=== PATIENT | female | born 1960 | race Caucasian/White ===

== ENCOUNTER 2017-12-06 12:31 | Inpatient (IN) ==
[2017-12-06] MEDS ORDERED: Isovue-370 500 ML INFUS..BTL IV ONE (12:42)
[2017-12-06] MEDS ORDERED: Ipratropium/Albuterol Neb 3 ML IH ONE (12:48)
[2017-12-06 12:56] LABS: Basophils % 0.1 %; Eosinophils % 0.3 %; Hematocrit 33.7 % (35.3-44.9); Hemoglobin 10.6 g/dL (11.5-15.4); Immature Granulocytes % 1.1 % (0-4); Lymphocytes # 0.4 K/mcL (0.6-4.6); Mean Corpuscular HGB Conc 31.5 g/dL (31.6-35.5); Mean Corpuscular Hemoglobin 28.7 pg (28.0-33.3); Mean Corpuscular Volume 91.3 fL (83.0-100.0); Mean Platelet Volume 12.1 fL (9.4-12.4); Monocytes # 0.4 K/mcL (0.0-1.3); Monocytes % 3.6 %; Neutrophils # 10.1 K/mcL (1.6-8.9); Nucleated Red Blood Cells 0.4 /100 WBC (0); Platelet Count 126 K/mcL (140-400); Red Blood Count 3.69 M/mcL (3.82-4.97); Red Cell Distribution Width 17.4 % (11.5-14.5); Segmented Neutrophils % 90.9 %
--- NOTE | 2017-12-06 13:13 | Emergency Department Note ---
Disposition Clinical Impression: COPD exacerbation Dyspnea Qualifiers: Dyspnea type: unspecified Qualified Code(s): R06.00 - Dyspnea, unspecified Anemia Qualifiers: Anemia type: unspecified type Qualified Code(s): D64.9 - Anemia, unspecified Disposition: Admitted As Inpatient Condition: Good Time of Disposition: 15:41 General Adult HPI - General Chief complaint: ED Shortness of Breath/Dyspnea Stated complaint: DAISY Time Seen by Provider: 12/06/17 12:37 Source: patient Mode of arrival: ambulatory Limitations: no limitations Nursing Notes Reviewed: Yes Vital Signs Reviewed: Yes - History of Present Illness HPI Narrative: Patient is a 57-year-old female that presents the emergency department with shortness of breath. Patient states that this is been ongoing for the past couple weeks. Patient states that she has a history of COPD. Patient states that she was recently diagnosed with bronchitis and has been using inhalers and ambulatory treatment provides temporary relief but the symptoms are worse when she gets up and ambulates. Patient states that she also has a history of stage IV breast cancer and had a radiation treatment earlier today. Patient denies any chest pain at this time. Pain Scale: 8 - Related Data Home Medications Medication Instructions Recorded Confirmed Docosahexanoic Acid/Epa [Fish Oil 1 cap PO BID 03/01/15 12/06/17 Concentrate Softgel] Loperamide [Imodium] 2 mg PO TID PRN 09/21/16 12/06/17 PredniSONE [Sonido] See Taper PO AD 11/29/17 12/06/17 Aspirin [Lo-Dose Aspirin EC] 81 mg PO DAILY 12/06/17 12/06/17 BuPROPion SR (12 HR) [Wellbutrin 200 mg PO DAILY 12/06/17 12/06/17 SR] Cholecalciferol (Vitamin D3) 1,000 unit PO DAILY 12/06/17 12/06/17 [Vitamin D] Cyanocobalamin (B-12) [Vitamin B12] 1,000 mcg PO DAILY 12/06/17 12/06/17 FLUoxetine HCl [Fluoxetine HCl] 40 mg PO DAILY 12/06/17 12/06/17 FLUoxetine HCl [PROzac] 20 mg PO DAILY 12/06/17 12/06/17 Gabapentin [Neurontin] 300 mg PO BID 12/06/17 12/06/17 Hydromorphone HCl [Dilaudid] 4 mg PO Q4H PRN 12/06/17 12/06/17 Loratadine [Claritin] 10 mg PO DAILY 12/06/17 12/06/17 Lovastatin 40 mg PO DAILY 12/06/17 12/06/17 Nystatin [Nystatin Suspension] 15 ml PO TID 12/06/17 12/06/17 Previous Rx's Medication Instructions Recorded Vitamin E (Dl,Tocopheryl Acet) 400 unit PO BID #60 cap 04/15/15 [Vitamin E] Prochlorperazine Maleate 10 mg PO Q6H PRN #30 tablet 08/30/15 [Compazine] ALPRAZolam [Xanax 1 MG Tablet] 1 tab PO BID PRN #60 tablet 06/14/16 Omeprazole [PriLOSEC] 20 mg PO BIDAC #60 cap 09/21/16 Temazepam [Restoril] 30 mg PO HS #30 cap 12/10/16 Folic Acid 1 mg PO DAILY #30 tablet 09/16/17 Everolimus [Afinitor] 10 mg PO DAILY #30 tablet 09/27/17 Exemestane [Aromasin] 25 mg PO DAILY #90 tablet 09/27/17 Albuterol Sulfate [Albuterol 1 - 2 puff IH Q4-6H PRN #1 inhaler 10/22/17 Inhaler] PredniSONE [Deltasone] 20 mg PO DAILY #30 tablet 11/08/17 Propranolol [Inderal] 20 mg PO DAILY #30 tablet 11/26/17 FentaNYL PATCH [Duragesic] 1 patch TD Q72H 30 Days #10 11/29/17 patch.[id number] Allergies Allergy/AdvReac Type Severity Reaction Status Date / Time arthritis medication Allergy Rash Uncoded 12/06/17 13:56 All systems ED: reviewed and negative except as stated. Cardiovascular: Denies: chest pain Respiratory: Reports: dyspnea Past Medical History - Past Medical History Medical history: Reports: arthritis, cancer, fibromyalgia, GERD, hyperlipidemia , other Surgical history: Reports: LILINAE/BSO, other Psychiatric history: Reports: no psych history CARROTER history: Reports: no CARROTER history - Social History Smoking Status: Current every day smoker Smokeless Tobacco Status: No Alcohol use: Reports: none Drug use: Reports: none Physical Exam - General Limitations: no limitations General appearance: alert, in no apparent distress - Head Head exam: atraumatic, normocephalic - Eye Eye exam: Present: normal appearance, EOMI - Neck Neck exam: Present: normal inspection, full ROM, trachea midline - Respiratory Respiratory exam: Present: wheezes (Wheezing bilaterally) - Cardiovascular Cardiovascular exam: Present: regular rate, normal rhythm, normal heart sounds, +S1, +S2 - Abdominal Exam Abdominal exam: Present: soft, Non-Tender, normal bowel sounds - Neurological Exam Neurological exam: Present: alert, oriented X3 - Psychiatric Psychiatric exam: Present: normal affect, normal mood - Skin Skin exam: Present: warm, dry, intact Course Vital Signs Temperature 97.9 F 12/06/17 12:33 Pulse Rate 65 12/06/17 12:33 Respiratory Rate 18 12/06/17 12:33 Blood Pressure 159/86 12/06/17 12:33 O2 Sat by Pulse Oximetry 98 12/06/17 12:33 Temperature 97.9 F 12/06/17 12:44 Pulse Rate 58 12/06/17 14:58 Respiratory Rate 18 12/06/17 14:58 Blood Pressure 151/64 12/06/17 14:58 O2 Sat by Pulse Oximetry 97 12/06/17 14:58 Oxygen Delivery Oxygen Delivery Room Air Medical Decision Making - MDM Narrative Medical decision making narrative: Due the patient presented with shortness of breath we will obtain basic laboratory testing as well as a VQ scan and a chest x-ray. The VQ scan showed low probability for pulmonary embolus. Patient's EKG showed a sinus rhythm at a rate of 62 bpm. Patient had an elevated lactic acid of 2.7. Patient has decreased kidney function consistent with stage III chronic kidney disease this appears to be chronic for the patient at her baseline. Troponin is negative. Patient's BNP is 518. Patient will be given DuoNeb breathing treatments and steroids here in the emergency department. Patient will also be started on Zosyn for antibiotic coverage due to having an elevated lactic acid 2.7. Patient was not started on Levaquin due to the patient having stage III kidney disease. I spoke with the admitting hospitalist Dr. Brennan and she has accepted the patient to their service. Patients repeat lactic acid was 2.0. The patient be admitted to the hospital for further evaluation and management this time. - Medical Records Medical records reviewed: Yes I reviewed the patient's medical records. - Lab Data Lab results reviewed: Yes I reviewed the patient's lab results. Result diagrams: 12/06/17 12:44 12/06/17 12:44 Lab Results 12/06/17 12/06/17 12/06/17 Range/Units 12:44 12:44 12:44 WBC 11.1 (4.3-11.1) K/mcL RBC 3.69 L (3.82-4.97) M/mcL Hgb 10.6 L (11.5-15.4) g/dL Hct 33.7 L (35.3-44.9) % MCV 91.3 (83.0-100.0) fL MCH 28.7 (28.0-33.3) pg MCHC 31.5 L (31.6-35.5) g/dL RDW 17.4 H (11.5-14.5) % Plt Count 126 L (140-400) K/mcL MPV 12.1 (9.4-12.4) fL Immature Gran % 1.1 (0-4) % Seg Neutrophils % 90.9 % Lymphocytes % 4.0 % Monocytes % 3.6 % Eosinophils % 0.3 % Basophils % 0.1 % Neutrophils # 10.1 H (1.6-8.9) K/mcL Lymphocytes # 0.4 L (0.6-4.6) K/mcL Monocytes # 0.4 (0.0-1.3) K/mcL Eosinophils # 0.0 (0.0-0.6) K/mcL Basophils # 0.0 (0.0-0.2) K/mcL Nucleated RBCs/100 WBC 0.4 H (0) /100 WBC Sodium 134 L (136-145) mEq/L Potassium 4.0 (3.5-5.1) mEq/L Chloride 94 L (98-107) mEq/L Carbon Dioxide 29 (23-29) mEq/L BUN 21 H (6-20) mg/dL Creatinine 1.48 H (0.60-1.20) mg/dL Est GFR ( Amer) 44 L (> 60) Est GFR (Non-Af Amer) 36 L (> 60) BUN/Creatinine Ratio 14 (6-26) Glucose 227 H (70-105) mg/dL Calculated Osmolality 288 (280-300) Lactic Acid 2.7 H (0.5-2.2) mmol/L Calcium 9.7 (8.6-10.3) mg/dL Troponin I < 0.03 (< 0.04) ng/mL B-Natriuretic Peptide (Less than 100) pg/mL 12/06/17 12/06/17 Range/Units 12:44 14:49 WBC (4.3-11.1) K/mcL RBC (3.82-4.97) M/mcL Hgb (11.5-15.4) g/dL Hct (35.3-44.9) % MCV (83.0-100.0) fL MCH (28.0-33.3) pg MCHC (31.6-35.5) g/dL RDW (11.5-14.5) % Plt Count (140-400) K/mcL MPV (9.4-12.4) fL Immature Gran % (0-4) % Seg Neutrophils % % Lymphocytes % % Monocytes % % Eosinophils % % Basophils % % Neutrophils # (1.6-8.9) K/mcL Lymphocytes # (0.6-4.6) K/mcL Monocytes # (0.0-1.3) K/mcL Eosinophils # (0.0-0.6) K/mcL Basophils # (0.0-0.2) K/mcL Nucleated RBCs/100 WBC (0) /100 WBC Sodium (136-145) mEq/L Potassium (3.5-5.1) mEq/L Chloride (98-107) mEq/L Carbon Dioxide (23-29) mEq/L BUN (6-20) mg/dL Creatinine (0.60-1.20) mg/dL Est GFR ( Amer) (> 60) Est GFR (Non-Af Amer) (> 60) BUN/Creatinine Ratio (6-26) Glucose (70-105) mg/dL Calculated Osmolality (280-300) Lactic Acid 2.0 (0.5-2.2) mmol/L Calcium (8.6-10.3) mg/dL Troponin I (< 0.04) ng/mL B-Natriuretic Peptide 518 H (Less than 100) pg/mL - Radiology Data Radiology results reviewed: Yes I reviewed the patient's radiology results. Pulmonary Perfusion Imaging 12/06/17 13:52 IMPRESSION: Low probability for pulmonary embolus. D/ / Snehla Baca MD / Snehal Baca MD Interpreting Provider: Snehal Baca MD Chest X-Ray 12/06/17 14:08 IMPRESSION: No acute abnormality. D/ / 12/06/2017 15:20:51 [facility] Interpreting Provider: Jose Brunner MD - EKG Data EKG #1 EKG attestation: Yes I reviewed and interpreted this EKG. EKG results narrative: EKG shows sinus rhythm at a rate of 62 bpm, NC interval 150, QTC 420, QRS duration 85 with a normal axis. There is no evidence of STEMI on EKG. This is compared to previous EKG on 07/08/17 which showed a sinus bradycardia at a rate of 55 bpm
[2017-12-06 13:27] LABS: BUN/Creatinine Ratio 14 (6-26); Blood Urea Nitrogen 21 mg/dL (6-20); Calcium 9.7 mg/dL (8.6-10.3); Carbon Dioxide 29 mEq/L (23-29); Chloride 94 mEq/L (98-107); Glucose 227 mg/dL (70-105); Osmolality,Calculated 288 (280-300); Sodium 134 mEq/L (136-145); Troponin I < 0.03 ng/mL (< 0.04); eGFR For African Americans 44 (> 60); eGFR For Non-African Americans 36 (> 60)
--- NOTE | 2017-12-06 15:01 | Emergency Department Note ---
Disposition Clinical Impression: Dyspnea Qualifiers: Dyspnea type: unspecified Qualified Code(s): R06.00 - Dyspnea, unspecified Disposition: Admitted As Inpatient Forms: ED Satisfaction Letter General Adult HPI - General Chief complaint: ED Shortness of Breath/Dyspnea Stated complaint: DAISY Time Seen by Provider: 12/06/17 12:37 Source: patient Mode of arrival: ambulatory Limitations: no limitations - History of Present Illness Pain Scale: 8 - Related Data Home Medications Medication Instructions Recorded Confirmed Docosahexanoic Acid/Epa [Fish Oil 1 cap PO BID 03/01/15 12/06/17 Concentrate Softgel] Loperamide [Imodium] 2 mg PO TID PRN 09/21/16 12/06/17 PredniSONE [Sonido] See Taper PO AD 11/29/17 12/06/17 Aspirin [Lo-Dose Aspirin EC] 81 mg PO DAILY 12/06/17 12/06/17 BuPROPion SR (12 HR) [Wellbutrin 200 mg PO DAILY 12/06/17 12/06/17 SR] Cholecalciferol (Vitamin D3) 1,000 unit PO DAILY 12/06/17 12/06/17 [Vitamin D] Cyanocobalamin (B-12) [Vitamin B12] 1,000 mcg PO DAILY 12/06/17 12/06/17 FLUoxetine HCl [Fluoxetine HCl] 40 mg PO DAILY 12/06/17 12/06/17 FLUoxetine HCl [PROzac] 20 mg PO DAILY 12/06/17 12/06/17 Gabapentin [Neurontin] 300 mg PO BID 12/06/17 12/06/17 Hydromorphone HCl [Dilaudid] 4 mg PO Q4H PRN 12/06/17 12/06/17 Loratadine [Claritin] 10 mg PO DAILY 12/06/17 12/06/17 Lovastatin 40 mg PO DAILY 12/06/17 12/06/17 Nystatin [Nystatin Suspension] 15 ml PO TID 12/06/17 12/06/17 Previous Rx's Medication Instructions Recorded Vitamin E (Dl,Tocopheryl Acet) 400 unit PO BID #60 cap 04/15/15 [Vitamin E] Prochlorperazine Maleate 10 mg PO Q6H PRN #30 tablet 08/30/15 [Compazine] ALPRAZolam [Xanax 1 MG Tablet] 1 tab PO BID PRN #60 tablet 06/14/16 Omeprazole [PriLOSEC] 20 mg PO BIDAC #60 cap 09/21/16 Temazepam [Restoril] 30 mg PO HS #30 cap 12/10/16 Folic Acid 1 mg PO DAILY #30 tablet 09/16/17 Everolimus [Afinitor] 10 mg PO DAILY #30 tablet 09/27/17 Exemestane [Aromasin] 25 mg PO DAILY #90 tablet 09/27/17 Albuterol Sulfate [Albuterol 1 - 2 puff IH Q4-6H PRN #1 inhaler 10/22/17 Inhaler] PredniSONE [Deltasone] 20 mg PO DAILY #30 tablet 11/08/17 Propranolol [Inderal] 20 mg PO DAILY #30 tablet 11/26/17 FentaNYL PATCH [Duragesic] 1 patch TD Q72H 30 Days #10 11/29/17 patch.[id number] Allergies Allergy/AdvReac Type Severity Reaction Status Date / Time arthritis medication Allergy Rash Uncoded 12/06/17 13:56 Cardiovascular: Denies: chest pain Respiratory: Reports: dyspnea Past Medical History - Past Medical History Medical history: Reports: arthritis, cancer, fibromyalgia, GERD, hyperlipidemia , other Surgical history: Reports: LILIANE/BSO, other Psychiatric history: Reports: no psych history 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 - Social History Smoking Status: Current every day smoker Smokeless Tobacco Status: No Alcohol use: Reports: none Drug use: Reports: none Physical Exam - General Limitations: no limitations General appearance: alert, in no apparent distress Course Vital Signs Temperature 97.9 F 12/06/17 12:33 Pulse Rate 65 12/06/17 12:33 Respiratory Rate 18 12/06/17 12:33 Blood Pressure 159/86 12/06/17 12:33 O2 Sat by Pulse Oximetry 98 12/06/17 12:33 Temperature 97.9 F 12/06/17 12:44 Pulse Rate 56 12/06/17 13:43 Respiratory Rate 18 12/06/17 13:43 Blood Pressure 132/62 12/06/17 13:43 O2 Sat by Pulse Oximetry 96 12/06/17 13:43 Oxygen Delivery Oxygen Delivery Room Air Medical Decision Making - Lab Data Result diagrams: 12/06/17 12:44 12/06/17 12:44 Lab Results 12/06/17 12/06/1718 Range/Units 12:44 12:44 12:44 WBC 11.1 (4.3-11.1) K/mcL RBC 3.69 L (3.82-4.97) M/mcL Hgb 10.6 L (11.5-15.4) g/dL Hct 33.7 L (35.3-44.9) % MCV 91.3 (83.0-100.0) fL MCH 28.7 (28.0-33.3) pg MCHC 31.5 L (31.6-35.5) g/dL RDW 17.4 H (11.5-14.5) % Plt Count 126 L (140-400) K/mcL MPV 12.1 (9.4-12.4) fL Immature Gran % 1.1 (0-4) % Seg Neutrophils % 90.9 % Lymphocytes % 4.0 % Monocytes % 3.6 % Eosinophils % 0.3 % Basophils % 0.1 % Neutrophils # 10.1 H (1.6-8.9) K/mcL Lymphocytes # 0.4 L (0.6-4.6) K/mcL Monocytes # 0.4 (0.0-1.3) K/mcL Eosinophils # 0.0 (0.0-0.6) K/mcL Basophils # 0.0 (0.0-0.2) K/mcL Nucleated RBCs/100 WBC 0.4 H (0) /100 WBC Sodium 134 L (136-145) mEq/L Potassium 4.0 (3.5-5.1) mEq/L Chloride 94 L (98-107) mEq/L Carbon Dioxide 29 (23-29) mEq/L BUN 21 H (6-20) mg/dL Creatinine 1.48 H (0.60-1.20) mg/dL Est GFR ( Amer) 44 L (> 60) Est GFR (Non-Af Amer) 36 L (> 60) BUN/Creatinine Ratio 14 (6-26) Glucose 227 H (70-105) mg/dL Calculated Osmolality 288 (280-300) Lactic Acid 2.7 H (0.5-2.2) mmol/L Calcium 9.7 (8.6-10.3) mg/dL Troponin I < 0.03 (< 0.04) ng/mL B-Natriuretic Peptide (Less than 100) pg/mL 12/06/17 Range/Units 12:44 WBC (4.3-11.1) K/mcL RBC (3.82-4.97) M/mcL Hgb (11.5-15.4) g/dL Hct (35.3-44.9) % MCV (83.0-100.0) fL MCH (28.0-33.3) pg MCHC (31.6-35.5) g/dL RDW (11.5-14.5) % Plt Count (140-400) K/mcL MPV (9.4-12.4) fL Immature Gran % (0-4) % Seg Neutrophils % % Lymphocytes % % Monocytes % % Eosinophils % % Basophils % % Neutrophils # (1.6-8.9) K/mcL Lymphocytes # (0.6-4.6) K/mcL Monocytes # (0.0-1.3) K/mcL Eosinophils # (0.0-0.6) K/mcL Basophils # (0.0-0.2) K/mcL Nucleated RBCs/100 WBC (0) /100 WBC Sodium (136-145) mEq/L Potassium (3.5-5.1) mEq/L Chloride (98-107) mEq/L Carbon Dioxide (23-29) mEq/L BUN (6-20) mg/dL Creatinine (0.60-1.20) mg/dL Est GFR ( Amer) (> 60) Est GFR (Non-Af Amer) (> 60) BUN/Creatinine Ratio (6-26) Glucose (70-105) mg/dL Calculated Osmolality (280-300) Lactic Acid (0.5-2.2) mmol/L Calcium (8.6-10.3) mg/dL Troponin I (< 0.04) ng/mL B-Natriuretic Peptide 518 H (Less than 100) pg/mL Attestation Statement - Attestation Attestation: I examined this patient and my medical decision-making was reviewed with the Resident Physician. I agree with the documented findings, disposition and treatment plan as described except to the extent set forth below. 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 Patient states that she augustin snot have a history of PE but is currently recieving radiation therapy. [place] will recieve a cardiopulmonary worup with CXR, VQ scan, for evlaution and rule out of PE. Differential also inculded pnuemoina because she states that she was dianogsed with bronchitis a week ago that has not improved. WE will likely admit.
[2017-12-06] MEDS ORDERED: Piperacillin/Tazobactam 3.375 GM in 0.9 % Sodium Chloride Mini Bag 100 ML IVPB ONE (15:29)
[2017-12-06] MEDS ORDERED: methylPREDNISolone 125 MG/2 ML VIAL IVP ONE (15:29)
--- NOTE | 2017-12-06 16:44 | Internal Med History&Physical ---
Date of Encounter: 12/07/17 Time of Encounter: 16:44 Internal Medicine - H&P: HPI Chief complaint: SOB History of present illness: Ms. Trejo is a 57 year old female with H/O COPD who the emergency department with 2 weeks history of shortness of breath. She was recently diagnosed with bronchitis and has been using inhalers and on steroids taper with no improvement Patient states that she also has a history of stage IV breast cancer and had a radiation treatment earlier today. VQ scan showed low probability for pulmonary embolus. Patient's EKG showed a sinus rhythm at a rate of 62 bpm. Patient had an elevated lactic acid of 2.7. She was treated with DuoNeb breathing treatments and steroids here in the emergency department. Patient will also be started on Zosyn for antibiotic coverage due to having an elevated lactic acid 2.7 and she was admitted for further evaluation. Past Med Surg Social Fam HX - Past Medical History Medical history: arthritis, cancer, fibromyalgia, GERD, hyperlipidemia, other Additional medical history: stage IV breast cancer (L4,L5,RIGHT HIP, LIVER). stage III renal failure. no deficits from previous strokes Psychiatric history: no psych history - Past Surgical History Surgical History: LILIANE/BSO, other Additional surgical history: exploratory abdominal surgery - Social History Smoking Status: Current every day smoker Smokeless Tobacco Status: No Alcohol use: none Drug use: none - Family History Mother Hx Family Cardiac Disorders: Yes (HLD) Hx Family Endocrine Disorder: Yes (DM) Internal Medicine - H&P: Meds Docosahexanoic Acid/Epa [Fish Oil Concentrate Softgel] 1 cap PO BID 03/01/15 [ History] Vitamin E (Dl,Tocopheryl Acet) [Vitamin E] 400 unit PO BID #60 cap 04/15/15 [Rx] Prochlorperazine Maleate [Compazine] 10 mg PO Q6H PRN #30 tablet 08/30/15 [Rx] ALPRAZolam [Xanax 1 MG Tablet] 1 tab PO BID PRN #60 tablet 06/14/16 [Rx] Loperamide [Imodium] 2 mg PO TID PRN 09/21/16 [History] Omeprazole [PriLOSEC] 20 mg PO BIDAC #60 cap 09/21/16 [Rx] Temazepam [Restoril] 30 mg PO HS #30 cap 12/10/16 [Rx] Folic Acid 1 mg PO DAILY #30 tablet 09/16/17 [Rx] Everolimus [Afinitor] 10 mg PO DAILY #30 tablet 09/27/17 [Rx] Exemestane [Aromasin] 25 mg PO DAILY #90 tablet 09/27/17 [Rx] Albuterol Sulfate [Albuterol Inhaler] 1 - 2 puff IH Q4-6H PRN #1 inhaler [Rx] PredniSONE [Deltasone] 20 mg PO DAILY #30 tablet 11/08/17 [Rx] Propranolol [Inderal] 20 mg PO DAILY #30 tablet 11/26/17 [Rx] FentaNYL PATCH [Duragesic] 1 patch TD Q72H 30 Days #10 patch.td72 11/29/17 [Rx] PredniSONE [Sonido] See Taper PO AD 11/29/17 [History] Aspirin [Lo-Dose Aspirin EC] 81 mg PO DAILY 12/06/17 [History] BuPROPion SR (12 HR) [Wellbutrin SR] 200 mg PO DAILY 12/06/17 [History] Cholecalciferol (Vitamin D3) [Vitamin D] 1,000 unit PO DAILY 12/06/17 [History] Cyanocobalamin (B-12) [Vitamin B12] 1,000 mcg PO DAILY 12/06/17 [History] FLUoxetine HCl [Fluoxetine HCl] 40 mg PO DAILY 12/06/17 [History] FLUoxetine HCl [PROzac] 20 mg PO DAILY 12/06/17 [History] Gabapentin [Neurontin] 300 mg PO BID 12/06/17 [History] Hydromorphone HCl [Dilaudid] 4 mg PO Q4H PRN 12/06/17 [History] Loratadine [Claritin] 10 mg PO DAILY 12/06/17 [History] Lovastatin 40 mg PO DAILY 12/06/17 [History] Nystatin [Nystatin Suspension] 15 ml PO TID 12/06/17 [History] 3 Allergy/AdvReac Type Severity Reaction Status Date / Time arthritis medication Allergy Rash Uncoded 12/06/17 13:56 All Systems PM: A 10-system review of systems was performed and is negative for pertinent findings except as documented above in the HPI. - Constitutional Constitutional: no chills, no fever(s), no night sweats - Cardiovascular Cardiovascular ROS IM: dyspnea, no chest pain, no diaphoresis, no lightheadedness, no palpitations, no syncope - Respiratory Respiratory: dyspnea, no cough, no wheezing, no excessive phlegm production - Gastrointestinal Gastrointestinal: no abdominal pain, no diarrhea, no hematemesis, no hematochezia, no melena, no nausea, no vomiting - Constitutional Vitals: Temp Pulse Resp BP Pulse Ox 97.9 F 58 16 151/64 97 12/06/17 12:44 12/06/17 14:58 12/06/17 15:53 12/06/17 15:53 12/06/17 14:58 General appearance: Present: A&O X 3 - Head Head exam: Present: atraumatic, normocephalic - Neck Neck exam general surgery: Present: supple, trachea midline. Absent: lymphadenopathy - Respiratory Respiratory exam: Present: rhonchi. Absent: accessory muscle use, rales, wheezes - Cardiovascular Cardiovascular exam: Present: RRR, +S1, +S2. Absent: diastolic murmur, gallop, rubs, systolic murmur - GI/Abdominal GI/Abdominal exam: Present: normal bowel sounds, soft, no peritoneal signs. Absent: distended, tenderness - Extremities Exam Extremities exam: Present: warm, radial pulses palpable and symmetrical. Absent : calf tenderness, cyanotic, pedal edema Internal Med - H&P Results - Labs CBC & Chem 7: 12/06/17 12:44 12/06/17 12:44 - Assessment and plan (1) COPD exacerbation Current Visit: Yes Status: Acute Assessment and plan: ASSESSMENT: - SOB due to *COPD exacerbation caused by URTI, allergen exposure, medication nonocompliance *Bronchitis PLAN: - Aerosols q 4 hr and PRN SOB - Solu-medrol 40 mg IV q 6 hr - O2 to keep SpO2 higher than 92% (SpO higher than 95% if CAD) - CBCD, BMP in AM - Sputum Gram stain, C+S - Robitussin 10 cc PO q 4 hr - Tylenol 650 mg PO q 4-6 hr PRN pain/fever - Heparin 5000 U SQ BID - Home meds - check the list and restart - ABs (2) Anemia Current Visit: Yes Status: Acute Qualifiers: Anemia type: unspecified type Qualified Code(s): D64.9 - Anemia, unspecified (3) Breast cancer, left Current Visit: No Status: Chronic Qualifiers: Breast location: unspecified site of breast (4) Chronic kidney disease (CKD) Current Visit: Yes Status: Acute (5) DVT prophylaxis Current Visit: Yes Status: Acute - Time Spent With Patient Total time spent is greater than 50% in coordination of care (as documented) at patient's floor/unit and/or counseling patient:
[2017-12-06] MEDS: *HR* HYDROmorphone 4 MG TABLET PO PRN (20:30)
[2017-12-06] MEDS ORDERED: ALPRAZolam 1 MG TABLET PO PRN (20:36)
[2017-12-06] MEDS ORDERED: *HR* HYDROmorphone 4 MG TABLET PO PRN (20:36)
[2017-12-06] MEDS ORDERED: Naloxone 0.4 MG/ML INJ IVP PRN (20:40)
[2017-12-06] MEDS ORDERED: Acetaminophen 325 MG TABLET PO PRN (20:40)
[2017-12-06] MEDS ORDERED: *HR* HYDROcodone/Acet 5/325 mg TABLET PO PRN (20:40)
[2017-12-06] MEDS ORDERED: *HR* FentaNYL PATCH 25 MCG PATCH TD SCH (20:45)
[2017-12-06] MEDS: Ipratropium/Albuterol Neb 3 ML IH SCH (21:44)
[2017-12-06 21:54] LABS: INR 1.1; Prothrombin Time 11.9 Seconds (9.4-12.1)
[2017-12-06 21:56] LABS: Activated Partial Thrombo Time 28.3 Seconds (26.0-36.0)
[2017-12-06] MEDS: Temazepam 15 MG CAPSULE PO SCH (22:27)
[2017-12-06] MEDS: Gabapentin 300 MG CAPSULE PO SCH (22:27)
[2017-12-06] MEDS: FISH OIL PO SCH (22:27)
[2017-12-06] MEDS: Nystatin SUSP 5 ML UD.LIQ PO SCH (22:28)
[2017-12-07] MEDS: Ipratropium/Albuterol Neb 3 ML IH SCH ×7 (00:31→23:37)
[2017-12-07] MEDS: *HR* HYDROmorphone 4 MG TABLET PO PRN ×3 (03:58→20:39)
[2017-12-07] MEDS: Azithromycin 500 MG in D5% in Water 250 ML IVPB SCH (04:17)
[2017-12-07 04:36] LABS: Bilirubin,Urine Negative (Negative); Blood,Urine Negative (Negative); Clarity,Urine Clear (Clear); Color,Urine Yellow (Yellow); Glucose,Urine (UA) >=1000 mg/dL (Normal); Ketones,Urine Negative (Negative); Leukocyte Esterase,Urine Negative (Negative); Nitrite,Urine Negative (Negative); PH,Urine 6.5 pH Units (5.0-8.0); Protein,Urine Negative (Neg-Trace); Specific Gravity,Urine 1.027 (1.010-1.025); Urobilinogen,Urine Normal (Normal)
[2017-12-07] MEDS: MethylPREDNISolone 40 MG/ML VIAL IVP SCH ×3 (05:25→17:13)
[2017-12-07] MEDS: *HR* Heparin 5,000 UNIT/ML VIAL SQ SCH ×2 (05:25→17:13)
[2017-12-07 06:07] LABS: Basophils % 0.2 %; Hemoglobin 9.5 g/dL (11.5-15.4); Lymphocytes # 0.2 K/mcL (0.6-4.6); Lymphocytes % 4.1 %; Mean Corpuscular HGB Conc 30.6 g/dL (31.6-35.5); Mean Corpuscular Hemoglobin 27.5 pg (28.0-33.3); Mean Corpuscular Volume 89.9 fL (83.0-100.0); Mean Platelet Volume 12.3 fL (9.4-12.4); Monocytes # 0.1 K/mcL (0.0-1.3); Neutrophils # 5.5 K/mcL (1.6-8.9); Nucleated Red Blood Cells 0.5 /100 WBC (0); Platelet Count 107 K/mcL (140-400); Red Blood Count 3.45 M/mcL (3.82-4.97); Red Cell Distribution Width 17.3 % (11.5-14.5); Segmented Neutrophils % 93.7 %
[2017-12-07 06:20] LABS: Albumin 3.3 g/dL (3.5-5.7); Albumin/Globulin Ratio 1.3 (1.1-2.2); Bilirubin,Total 0.4 mg/dL (0.3-1.0); Calcium 8.8 mg/dL (8.6-10.3); Chol/HDL Ratio 3.2 (0-4.9); Globulin 2.6 g/dL (2.4-3.5); Magnesium 2.2 mg/dL (1.6-2.6); Phosphorous 3.9 mg/dL (2.7-4.5); Total Protein 5.9 g/dL (6.4-8.9)
[2017-12-07] MEDS: Aspirin Enteric Coated 81 MG Tablet PO SCH (08:03)
[2017-12-07] MEDS: Nystatin SUSP 5 ML UD.LIQ PO SCH ×4 (08:03→22:37)
[2017-12-07] MEDS: BuPROPion SR (12 HR) 100 MG TABLET PO SCH (08:03)
[2017-12-07] MEDS: Loratadine 10 MG TABLET PO SCH (08:04)
[2017-12-07] MEDS: Folic Acid 1 MG TABLET PO SCH (08:04)
[2017-12-07] MEDS: Gabapentin 300 MG CAPSULE PO SCH ×2 (08:04→20:38)
[2017-12-07] MEDS: Cyanocobalamin (B-12) 1,000 MCG TABLET PO SCH (08:04)
[2017-12-07] MEDS: Cholecalciferol (D-3) 1,000 UNIT TABLET PO SCH (08:04)
[2017-12-07] MEDS: FLUoxetine 20 MG CAPSULE PO SCH (08:04)
[2017-12-07] MEDS: FISH OIL PO SCH ×2 (08:05→20:41)
[2017-12-07] MEDS: EVEROLIMUS 10 MG PO SCH (08:05)
[2017-12-07] MEDS: (Exemestane [Aromasin] 25 MG) PO SCH (08:05)
[2017-12-07] MEDS ORDERED: FLUoxetine 20 MG CAPSULE PO SCH (09:00)
--- NOTE | 2017-12-07 10:06 | Electrocardiograph Report ---
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
--- NOTE | 2017-12-07 18:35 | Internal Med Progress Note ---
Date of Encounter: 12/07/17 Time of Encounter: 13:00 - Assessment and plan (1) COPD exacerbation Current Visit: Yes Status: Acute Assessment and plan: No wheezes noted at this time. Patient states she is feeling much better we will taper Solu-Medrol continue with bronchodilators as well as Robitussin and azithromycin-we will monitor overnight anticipate discharge in a.m. (2) Breast cancer, left Current Visit: No Status: Chronic Assessment and plan: 1 metastatic breast cancer with liver metastasis current treatment Everolimus and Aromasin Continue with prednisone once tapered Cont with outpatient radiation Continue with follow-up treatments with Qualifiers: Breast location: unspecified site of breast Estrogen receptor status: unspecified Patient sex: female Qualified Code(s): C50.912 - Malignant neoplasm of unspecified site of left female breast (3) Anemia Current Visit: Yes Status: Acute Assessment and plan: Currently appears to be stable patient is receiving chemotherapy as well as radiation treatments denies any hematochezia melena or hematemesis. Hemoglobin 9.5 today we will recheck tomorrow Qualifiers: Anemia type: unspecified type Qualified Code(s): D64.9 - Anemia, unspecified (4) Chronic kidney disease (CKD) Current Visit: Yes Status: Acute Assessment and plan: Creatinine baseline around 1.3 1.4. Currently appears to be around baseline. We will continue to monitor Avoid nephro toxins Monitor intake and output Qualifiers: Chronic kidney disease stage: stage 3 (moderate) Qualified Code(s): N18.3 - Chronic kidney disease, stage 3 (moderate) (5) DVT prophylaxis Current Visit: Yes Status: Acute - Time Spent With Patient Total time spent is greater than 50% in coordination of care (as documented) at patient's floor/unit and/or counseling patient: - Subjective Interval history: Patient was seen and examined at bedside. Presently patient denies any chest pain or shortness of breath no coughing or sputum production at this time. I did review treatment plan with patient who verbalized understanding. - Constitutional Vitals: Temp Pulse Resp BP Pulse Ox 98.3 F 62 14 131/71 95 12/07/17 15:42 12/07/17 15:42 12/07/17 15:42 12/07/17 15:42 12/07/17 15:42 General appearance: Present: A&O X 3 - Head Head exam: Present: atraumatic, normocephalic - Eye Eye exam: Present: PERRL, conjuntiva pink, sclera anicteric Pupils: Present: PERRL - Neck Neck exam general surgery: Present: supple, trachea midline. Absent: lymphadenopathy - Respiratory Respiratory exam: Present: CTAB. Absent: accessory muscle use, rales, rhonchi, wheezes - Cardiovascular Cardiovascular exam: Present: RRR, +S1, +S2. Absent: diastolic murmur, gallop, rubs, systolic murmur - GI/Abdominal GI/Abdominal exam: Present: normal bowel sounds, soft, no peritoneal signs. Absent: distended, tenderness - Extremities Exam Extremities exam: Present: warm, radial pulses palpable and symmetrical. Absent : calf tenderness, cyanotic, pedal edema - Neurological Exam Neurological exam: Present: CN II-XII intact, oriented X3, no focal deficits. Absent: pronater drift, facial droop, speech deficit - Skin Skin exam: Present: dry, intact Internal Medicine: Result - Labs CBC & Chem 7: 12/07/17 05:36 12/07/17 05:36 Labs: Short CBC 12/07/17 Range/Units 05:36 WBC 5.9 (4.3-11.1) K/mcL Hgb 9.5 L (11.5-15.4) g/dL Hct 31.0 L (35.3-44.9) % Plt Count 107 L (140-400) K/mcL Neutrophils # 5.5 (1.6-8.9) K/mcL BMP 12/07/17 05:36 Sodium 133 L Potassium 4.0 Chloride 96 L Carbon Dioxide 28 BUN 18 Creatinine 1.33 H Glucose 295 H Calcium 8.8 Liver Function 12/07/17 Range/Units 05:36 Total Bilirubin 0.4 (0.3-1.0) mg/dL AST 23 (13-39) Units/L ALT 42 (7-52) Units/L Alkaline Phosphatase 63 (34-104) Units/L Albumin 3.3 L (3.5-5.7) g/dL Urine 12/07/17 Range/Units 04:25 Urine Color Yellow (Yellow) Urine Clarity Clear (Clear) Urine pH 6.5 (5.0-8.0) pH Units Ur Specific [place] 1.027 H (1.010-1.025) Urine Protein Negative (Neg-Trace) mg/dL Urine Glucose (UA) >=1000 H (Normal) mg/dL - ABG Interpretation ABG results: PT/INR, D-dimer PT 11.9 Seconds (9.4-12.1) 12/06/17 20:57 Consult Discharge Plan - Plan Referrals: Armando Root MD [Primary Care Provider] -
[2017-12-07] MEDS: Temazepam 15 MG CAPSULE PO SCH (20:39)
[2017-12-08] MEDS: Azithromycin 500 MG in D5% in Water 250 ML IVPB SCH (03:42)
[2017-12-08] MEDS: Ipratropium/Albuterol Neb 3 ML IH SCH ×6 (03:52→23:18)
[2017-12-08] MEDS: *HR* Heparin 5,000 UNIT/ML VIAL SQ SCH (05:25)
[2017-12-08] MEDS ORDERED: MethylPREDNISolone 40 MG/ML VIAL IVP SCH ×2 (06:00→18:00)
[2017-12-08 06:31] LABS: Basophils % 0.1 %; Hematocrit 29.1 % (35.3-44.9); Hemoglobin 9.3 g/dL (11.5-15.4); Immature Granulocytes % 1.5 % (0-4); Lymphocytes # 0.3 K/mcL (0.6-4.6); Lymphocytes % 4.1 %; Mean Corpuscular Hemoglobin 28.7 pg (28.0-33.3); Mean Corpuscular Volume 89.8 fL (83.0-100.0); Mean Platelet Volume 13.1 fL (9.4-12.4); Monocytes # 0.3 K/mcL (0.0-1.3); Monocytes % 3.5 %; Neutrophils # 6.8 K/mcL (1.6-8.9); Nucleated Red Blood Cells 0.3 /100 WBC (0); Red Blood Count 3.24 M/mcL (3.82-4.97); Red Cell Distribution Width 17.2 % (11.5-14.5); Segmented Neutrophils % 90.8 %
[2017-12-08 06:32] LABS: Platelet Count 97 K/mcL (140-400)
[2017-12-08 06:43] LABS: Calcium 8.4 mg/dL (8.6-10.3); Potassium 4.1 mEq/L (3.5-5.1)
[2017-12-08] MEDS: Folic Acid 1 MG TABLET PO SCH (08:25)
[2017-12-08] MEDS: FLUoxetine 20 MG CAPSULE PO SCH (08:25)
[2017-12-08] MEDS: Aspirin Enteric Coated 81 MG Tablet PO SCH (08:25)
[2017-12-08] MEDS: Nystatin SUSP 5 ML UD.LIQ PO SCH ×3 (08:25→22:09)
[2017-12-08] MEDS: Cholecalciferol (D-3) 1,000 UNIT TABLET PO SCH (08:25)
[2017-12-08] MEDS: BuPROPion SR (12 HR) 100 MG TABLET PO SCH (08:25)
[2017-12-08] MEDS: FISH OIL PO SCH ×2 (08:26→22:08)
[2017-12-08] MEDS: Gabapentin 300 MG CAPSULE PO SCH ×2 (08:26→22:07)
[2017-12-08] MEDS: Cyanocobalamin (B-12) 1,000 MCG TABLET PO SCH (08:26)
[2017-12-08] MEDS: EVEROLIMUS 10 MG PO SCH (08:26)
[2017-12-08] MEDS: Loratadine 10 MG TABLET PO SCH (08:26)
[2017-12-08] MEDS: (Exemestane [Aromasin] 25 MG) PO SCH (08:26)
--- NOTE | 2017-12-08 11:30 | Internal Med Progress Note ---
Date of Encounter: 12/08/17 Time of Encounter: 11:30 - Assessment and plan (1) COPD exacerbation Current Visit: Yes Status: Acute Assessment and plan: Scattered wheezes throughout lung perdomo. Patient states she has been short of breath on exertion overnight. We will resume Solu-Medrol every 6 hours continue with azithromycin as well as duo nebs every 4 hours. Oxygen as needed (2) Breast cancer, left Current Visit: No Status: Chronic Assessment and plan: 1 metastatic breast cancer with liver metastasis current treatment Everolimus and Aromasin Continue with prednisone once tapered Cont with outpatient radiation Continue with follow-up treatments with as outpatient consult as needed Qualifiers: Breast location: unspecified site of breast Estrogen receptor status: unspecified Patient sex: female Qualified Code(s): C50.912 - Malignant neoplasm of unspecified site of left female breast (3) Anemia Current Visit: Yes Status: Acute Assessment and plan: Currently appears to be stable patient is receiving chemotherapy as well as radiation treatments denies any hematochezia melena or hematemesis. Hemoglobin 9.3 will monitor Qualifiers: Anemia type: unspecified type Qualified Code(s): D64.9 - Anemia, unspecified (4) Chronic kidney disease (CKD) Current Visit: Yes Status: Acute Assessment and plan: Creatinine baseline around 1.3 1.4. Currently appears to be around baseline. We will continue to monitor Avoid nephro toxins Monitor intake and output Qualifiers: Chronic kidney disease stage: stage 3 (moderate) Qualified Code(s): N18.3 - Chronic kidney disease, stage 3 (moderate) (5) Thrombocytopenia Current Visit: Yes Status: Acute Assessment and plan: 1 Plat[place] 97 today suspect rt to radiation therapy/ chemotherapy- will hold heparin for now and monitor for bleeding (6) DVT prophylaxis Current Visit: Yes Status: Acute Assessment and plan: on heparin we will change to SCD dt thrombocytopenia - Time Spent With Patient Total time spent is greater than 50% in coordination of care (as documented) at patient's floor/unit and/or counseling patient: - Subjective Interval history: Patient was seen and examined at bedside. Patient has complained of shortness of breath overnight particularly on exertion she does have wheezes scattered throughout one perdomo. Denies any cough or fever overnight - Constitutional Vitals: Temp Pulse Resp BP Pulse Ox 98.1 F 68 14 177/67 99 12/08/17 07:51 12/08/17 07:51 12/08/17 07:51 12/08/17 07:51 12/08/17 07:51 General appearance: Present: A&O X 3 - Head Head exam: Present: atraumatic, normocephalic - Eye Eye exam: Present: PERRL, conjuntiva pink, sclera anicteric Pupils: Present: PERRL - Neck Neck exam general surgery: Present: supple, trachea midline. Absent: lymphadenopathy - Respiratory Respiratory exam: Present: CTAB. Absent: accessory muscle use, rales, rhonchi, wheezes - Cardiovascular Cardiovascular exam: Present: RRR, +S1, +S2. Absent: diastolic murmur, gallop, rubs, systolic murmur - GI/Abdominal GI/Abdominal exam: Present: normal bowel sounds, soft, no peritoneal signs. Absent: distended, tenderness - Extremities Exam Extremities exam: Present: warm, radial pulses palpable and symmetrical. Absent : calf tenderness, cyanotic, pedal edema - Neurological Exam Neurological exam: Present: CN II-XII intact, oriented X3, no focal deficits. Absent: pronater drift, facial droop, speech deficit - Skin Skin exam: Present: dry, intact Internal Medicine: Result - Labs CBC & Chem 7: 12/08/17 05:22 12/08/17 05:22 Labs: Short CBC 12/08/17 Range/Units 05:22 WBC 7.5 (4.3-11.1) K/mcL Hgb 9.3 L (11.5-15.4) g/dL Hct 29.1 L (35.3-44.9) % Plt Count 97 L (140-400) K/mcL Neutrophils # 6.8 (1.6-8.9) K/mcL BMP 12/08/17 05:22 Sodium 136 Potassium 4.1 Chloride 97 L Carbon Dioxide 29 BUN 21 H Creatinine 1.20 Glucose 255 H Calcium 8.4 L - ABG Interpretation ABG results: PT/INR, D-dimer PT 11.9 Seconds (9.4-12.1) 12/06/17 20:57 Consult Discharge Plan - Plan Referrals: Armando Root MD [Primary Care Provider] -
[2017-12-08] MEDS: *HR* HYDROmorphone 4 MG TABLET PO PRN ×3 (13:22→23:58)
[2017-12-08] MEDS: methylPREDNISolone 125 MG/2 ML VIAL IVP SCH ×2 (17:54→23:59)
[2017-12-08] MEDS: Temazepam 15 MG CAPSULE PO SCH (22:08)
[2017-12-09] MEDS: Azithromycin 500 MG in D5% in Water 250 ML IVPB SCH (03:47)
[2017-12-09] MEDS: *HR* HYDROmorphone 4 MG TABLET PO PRN (04:01)
[2017-12-09] MEDS: Ipratropium/Albuterol Neb 3 ML IH SCH ×2 (04:24→08:11)
[2017-12-09] MEDS: methylPREDNISolone 125 MG/2 ML VIAL IVP SCH (05:35)
[2017-12-09 05:41] LABS: Basophils % 0.1 %; Hematocrit 29.6 % (35.3-44.9); Hemoglobin 9.3 g/dL (11.5-15.4); Immature Granulocytes % 2.5 % (0-4); Lymphocytes # 0.2 K/mcL (0.6-4.6); Lymphocytes % 3.2 %; Mean Corpuscular HGB Conc 31.4 g/dL (31.6-35.5); Mean Corpuscular Hemoglobin 27.8 pg (28.0-33.3); Mean Corpuscular Volume 88.6 fL (83.0-100.0); Mean Platelet Volume 12.5 fL (9.4-12.4); Monocytes # 0.2 K/mcL (0.0-1.3); Monocytes % 2.1 %; Nucleated Red Blood Cells 0.5 /100 WBC (0); Platelet Count 107 K/mcL (140-400); Red Blood Count 3.34 M/mcL (3.82-4.97); Red Cell Distribution Width 17.2 % (11.5-14.5); Segmented Neutrophils % 92.1 %
[2017-12-09 05:53] LABS: Calcium 8.3 mg/dL (8.6-10.3); Potassium 4.1 mEq/L (3.5-5.1)
[2017-12-09 07:19] VITALS: BP 182/65
--- NOTE | 2017-12-09 08:57 | Discharge Summary ---
- NOTES TO OUTPATIENT PROVIDER Notes to Outpatient Provider: Long steroid taper and will resume home dose of 20 Date of Encounter: 12/09/17 Time of Encounter: 08:55 - Discharge Diagnosis (1) COPD exacerbation Priority: Primary Status: Acute (2) Breast cancer, left Priority: Secondary Status: Chronic Qualifiers: Breast location: unspecified site of breast Estrogen receptor status: unspecified Patient sex: female Qualified Code(s): C50.912 - Malignant neoplasm of unspecified site of left female breast (3) Anemia Priority: Secondary Status: Acute Qualifiers: Anemia type: unspecified type Qualified Code(s): D64.9 - Anemia, unspecified (4) Chronic kidney disease (CKD) Priority: Secondary Status: Acute Qualifiers: Chronic kidney disease stage: stage 3 (moderate) Qualified Code(s): N18.3 - Chronic kidney disease, stage 3 (moderate) (5) Thrombocytopenia Priority: Secondary Status: Acute Hospital course: Ms. Trejo is a 57 year old female past medical history of COPD metastatic breast cancer with liver metastasis she is receiving chemotherapy as well as radiation therapy CKG stage III. Patient presented to [facility] ER with 2 week history of shortness of breath she been using her inhalers and was last day or taper with no improvement. She received radiation treatment earlier this week. VQ scan showed low probability pulmonary emboli. EKG sinus rhythm she was given duo nebs and IV steroids was started on azithromycin. Wheezing did improve patient states she felt much better no sputum production. Patient states she felt she was ready to go home we will continue with IV long steroid taper as well as azithromycin and bronchodilators. I advised patient to follow- up with her primary care provider since this provider knows her best and can adjust medications accordingly patient verbalized understanding. She is hemodynamically stable and is ready for discharge at this time. Discharge discussed with: patient - Time Spent with Patient Total time spent providing and/or coordinating discharge services: - Discharge Medications Prescriptions: Ipratropium/Albuterol Neb [Duoneb] 3 ml IH Q6HR #120 inhsol Azithromycin [Zithromax] 250 mg PO DAILY #2 tablet predniSONE [PredniSONE] 10 mg PO DAILY #41 tablet Home Medications: Docosahexanoic Acid/Epa [Fish Oil Concentrate Softgel] 1 cap PO BID 09/29/15 [ History] Vitamin E (Dl,Tocopheryl Acet) [Vitamin E] 400 unit PO BID #60 cap 04/15/15 [Rx] Prochlorperazine Maleate [Compazine] 10 mg PO Q6H PRN #30 tablet 08/30/15 [Rx] ALPRAZolam [Xanax 1 MG Tablet] 1 tab PO BID PRN #60 tablet 06/14/16 [Rx] Loperamide [Imodium] 2 mg PO TID PRN 09/21/16 [History] Omeprazole [PriLOSEC] 20 mg PO BIDAC #60 cap 09/21/16 [Rx] Temazepam [Restoril] 30 mg PO HS #30 cap 12/10/16 [Rx] Folic Acid 1 mg PO DAILY #30 tablet 09/16/17 [Rx] Everolimus [Afinitor] 10 mg PO DAILY #30 tablet 09/27/17 [Rx] Exemestane [Aromasin] 25 mg PO DAILY #90 tablet 09/27/17 [Rx] Albuterol Sulfate [Albuterol Inhaler] 1 - 2 puff IH Q4-6H PRN #1 inhaler [Rx] PredniSONE [Deltasone] 20 mg PO DAILY #30 tablet 11/08/17 [Rx] Propranolol [Inderal] 20 mg PO DAILY #30 tablet 11/26/17 [Rx] FentaNYL PATCH [Duragesic] 1 patch TD Q72H 30 Days #10 patch.td72 11/29/17 [Rx] PredniSONE [Sonido] See Taper PO AD 11/29/17 [History] Aspirin [Lo-Dose Aspirin EC] 81 mg PO DAILY 12/06/17 [History] BuPROPion SR (12 HR) [Wellbutrin SR] 200 mg PO DAILY 12/06/17 [History] Cholecalciferol (Vitamin D3) [Vitamin D3] 1,000 unit PO DAILY 12/06/17 [History] Cyanocobalamin (B-12) [Vitamin B12] 1,000 mcg PO DAILY 12/06/17 [History] FLUoxetine HCl [Fluoxetine HCl] 40 mg PO DAILY 12/06/17 [History] FLUoxetine HCl [Prozac] 20 mg PO DAILY 12/06/17 [History] Gabapentin [Neurontin] 300 mg PO BID 12/06/17 [History] Hydromorphone HCl [Dilaudid] 4 mg PO Q4H PRN 12/06/17 [History] Loratadine [Claritin] 10 mg PO DAILY 12/06/17 [History] Lovastatin 40 mg PO DAILY 12/06/17 [History] Nystatin [Nystatin Suspension] 15 ml PO TID 12/06/17 [History] Azithromycin [Zithromax] 250 mg PO DAILY #2 tablet 12/09/17 [Rx] Ipratropium/Albuterol Neb [Duoneb] 3 ml IH Q6HR #120 inhsol 12/09/17 [Rx] predniSONE [PredniSONE] 10 mg PO DAILY #41 tablet 12/09/17 [Rx] Allergies/Adverse Reactions: 3 Allergy/AdvReac Type Severity Reaction Status Date / Time arthritis medication Allergy Rash Uncoded 12/06/17 13:56 Date of admission: 12/06/17 15:31 Primary care physician: Armando Root MD Consults: 12/07/17 03:33 Consult to Nurse Navigator [CONS] Routine Comment: Discharging clinician: Tenisha Moss Anticipated date of discharge: 12/09/17 - Constitutional Vitals: Temp Pulse Resp BP Pulse Ox 98.1 F 69 18 182/65 95 12/09/17 07:17 12/09/17 07:17 12/09/17 08:11 12/09/17 07:17 12/09/17 08:11 General appearance: Present: A&O X 3 - Head Head exam: Present: atraumatic, normocephalic - Eye Eye exam: Present: PERRL, conjuntiva pink, sclera anicteric Pupils: Present: PERRL - Neck Neck exam general surgery: Present: supple, trachea midline. Absent: lymphadenopathy - Respiratory Respiratory exam: Present: CTAB. Absent: accessory muscle use, rales, rhonchi, wheezes - Cardiovascular Cardiovascular exam: Present: RRR, +S1, +S2. Absent: diastolic murmur, gallop, rubs, systolic murmur - GI/Abdominal GI/Abdominal exam: Present: normal bowel sounds, soft, no peritoneal signs. Absent: distended, tenderness - Extremities Exam Extremities exam: Present: warm, radial pulses palpable and symmetrical. Absent : calf tenderness, cyanotic, pedal edema - Neurological Exam Neurological exam: Present: CN II-XII intact, oriented X3, no focal deficits. Absent: pronater drift, facial droop, speech deficit - Skin Skin exam: Present: dry, intact - Patient Status Disposition: Home, Self-Care Condition: Good Functional capacity at discharge: independent ambulation Overall status at discharge: patient is back to baseline - Discharge Instructions Instructions: Chronic Obstructive Pulmonary Disease (DC), Chronic Obstructive Pulmonary Disease (GEN) Follow Up With: Armando Root MD [Primary Care Provider] - 12/16/17 8:30 am Smith Delgado DO [Partnered Physician] - 12/12/17 8:45 am Rick Abdullahi MD [Partnered Physician] - 01/21/18 10:00 am Mayo Vega MD [Partnered Physician] - 12/23/17 3:45 pm - Diet and Activity Activity: resume usual activities as tolerated Diet: advance to your usual diet
[2017-12-09] MEDS: Folic Acid 1 MG TABLET PO SCH (09:11)
[2017-12-09] MEDS: FISH OIL PO SCH (09:12)
[2017-12-09] MEDS: EVEROLIMUS 10 MG PO SCH (09:12)
[2017-12-09] MEDS: FLUoxetine 20 MG CAPSULE PO SCH (09:12)
[2017-12-09] MEDS: Cyanocobalamin (B-12) 1,000 MCG TABLET PO SCH (09:12)
[2017-12-09] MEDS: Aspirin Enteric Coated 81 MG Tablet PO SCH (09:12)
[2017-12-09] MEDS: BuPROPion SR (12 HR) 100 MG TABLET PO SCH (09:12)
[2017-12-09] MEDS: Gabapentin 300 MG CAPSULE PO SCH (09:12)
[2017-12-09] MEDS: Nystatin SUSP 5 ML UD.LIQ PO SCH (09:12)
[2017-12-09] MEDS: Cholecalciferol (D-3) 1,000 UNIT TABLET PO SCH (09:12)
[2017-12-09] MEDS: Loratadine 10 MG TABLET PO SCH (09:12)
[2017-12-09] MEDS: (Exemestane [Aromasin] 25 MG) PO SCH (09:13)
== END 2017-12-09 10:25 | disposition home or self-care (01) | DRG 191 ==
LOC: 3BNU 12:31 → EMEROO 12:31 → 3BNU 16:05
PROVIDERS: ADMIT Internal Medicine Nephrology; ATTEND Internal Medicine Nephrology

== ENCOUNTER 2018-03-10 06:56 | Inpatient (IN) ==
[2018-03-10] MEDS ORDERED: Cefepime HCl 2,000 MG in Water for inj. (sterile) 20 ML 20 ML IVP ONE (07:05)
[2018-03-10] MEDS ORDERED: Piperacillin/Tazobactam 3.375 GM in Water for inj. (sterile) 20 ML 20 ML IVP ONE (07:05)
[2018-03-10] MEDS ORDERED: 0.9 % Sodium Chloride 1,000 ML IVC ONE (07:05)
[2018-03-10] MEDS ORDERED: Levofloxacin 750 MG/150 ML 750 MG/150 ML BAG IVPB ONE (07:05)
[2018-03-10 08:23] LABS: Basophils % 0.2 %; Eosinophils % 0.1 %; Hematocrit 26.8 % (35.3-44.9); Hemoglobin 8.2 g/dL (11.5-15.4); Immature Granulocytes % 1.1 % (0-4); Lymphocytes # 0.4 K/mcL (0.6-4.6); Lymphocytes % 2.3 %; Mean Corpuscular HGB Conc 30.6 g/dL (31.6-35.5); Mean Corpuscular Hemoglobin 26.9 pg (28.0-33.3); Mean Corpuscular Volume 87.9 fL (83.0-100.0); Monocytes % 5.3 %; Neutrophils # 17.8 K/mcL (1.6-8.9); Platelet Count 109 K/mcL (140-400); Red Blood Count 3.05 M/mcL (3.82-4.97); Red Cell Distribution Width 16.7 % (11.5-14.5)
[2018-03-10 08:30] LABS: INR 1.2; Prothrombin Time 13.8 Seconds (9.4-12.1)
[2018-03-10 08:32] LABS: Activated Partial Thrombo Time 28.9 Seconds (26.0-36.0)
[2018-03-10 08:45] LABS: Alanine Aminotransferase 14 Units/L (7-52); Albumin 2.7 g/dL (3.5-5.7); Alkaline Phosphatase 105 Units/L (34-104); Aspartate Amino Transferase 23 Units/L (13-39); BUN/Creatinine Ratio 10 (6-26); Bilirubin,Direct 0.2 mg/dL (0.0-0.2); Bilirubin,Indirect 0.4 mg/dL (0.0-1.2); Bilirubin,Total 0.6 mg/dL (0.3-1.0); Blood Urea Nitrogen 11 mg/dL (6-20); Carbon Dioxide 25 mEq/L (23-29); Chloride 100 mEq/L (98-107); Globulin 2.7 g/dL (2.4-3.5); Glucose 196 mg/dL (70-105); Osmolality,Calculated 285 (280-300); Phosphorous 2.9 mg/dL (2.7-4.5); Potassium 3.4 mEq/L (3.5-5.1); Sodium 135 mEq/L (136-145); Total Protein 5.4 g/dL (6.4-8.9); eGFR For Non-African Americans 50 (> 60)
[2018-03-10 08:48] LABS: Troponin I 0.08 ng/mL (< 0.04)
[2018-03-10 08:54] LABS: Bilirubin,Urine Negative (Negative); Blood,Urine Trace (Negative); Clarity,Urine Cloudy (Clear); Color,Urine Yellow (Yellow); Glucose,Urine (UA) Normal (Normal); Ketones,Urine 15 mg/dL (Negative); Leukocyte Esterase,Urine Negative (Negative); Nitrite,Urine Negative (Negative); PH,Urine 5.5 pH Units (5.0-8.0); Protein,Urine Negative (Neg-Trace); Specific Gravity,Urine 1.023 (1.010-1.025); Urobilinogen,Urine Normal (Normal)
[2018-03-10 08:56] LABS: Bacteria,Urine None Seen per hpf (None-Few); Hyaline Casts,Urine None Seen per lpf (None-Few); RBC,Urine 0-3 per hpf (0-3); Squamous Epithelial Cell,Urine Many per lpf (None-Few); WBC,Urine 0-3 per hpf (0-3)
[2018-03-10] MEDS ORDERED: Naloxone 0.4 MG/ML INJ IVP PRN (10:07)
--- NOTE | 2018-03-10 10:20 | Internal Med History&Physical ---
Date of Encounter: 03/10/18 Time of Encounter: 09:30 Internal Medicine - H&P: HPI Chief complaint: fever, SOB Admitted From: Home History of present illness: Ms. Trejo is a 57 year old female with metastatic breast CA, CKD, COPD (FEV1 51 % in 2016), tobacco abuse, presented to the ED with 1 day history of fever. Patient does not recall much of the event from last night therefore further history was obtained from the daughters who were at bedside. They noted that she was experiencing increasing dyspnea over the course of last 4-5 days and used nebulizer more frequently. Last night, she was found to be a bit more confused than usual and was warm to touch. Patient however has no focal complaints including chest pain, cough, sputum production, orthopnea, PND, leg swelling, abdominal pain, change in bowel habits, or dysuria. She is on everolimus 10 mg daily and Aromasin 25 mg daily for her metastatic breast cancer. Denies any recent use of antibiotics . Of note, she was admitted for acute COPD exacerbation back in December 24. In the ED, she had temp of 100.0, HR99 , BP stable. Labs were notable for WBC 19.6, trop 0.08, BNP 569, Cr 1.12 ( Baseline). Lactic acid was normal. CXR was reviewed and appears to have slightly more hazy areas in L lung base than the previous CXR in 12/2017. She was given zosyn, cefepime, levaquin, and admitted for further management. Past Med Surg Social Fam HX - Past Medical History Attestation: Yes The following information was validated with the patient. Medical history: arthritis, cancer, COPD, fibromyalgia, GERD, hyperlipidemia, other Additional medical history: stage IV breast cancer (L4,L5,RIGHT HIP, LIVER). stage III renal failure. no deficits from previous strokes Psychiatric history: no psych history - Past Surgical History Surgical History: LILIANE/BSO, other Additional surgical history: exploratory abdominal surgery, port - Social History Smoking Status: Current every day smoker Smokeless Tobacco Status: No Alcohol use: none Drug use: none - Family History Mother Hx Family Cardiac Disorders: Yes (HLD) Hx Family Endocrine Disorder: Yes (DM) Internal Medicine - H&P: Meds Prochlorperazine Maleate [Compazine] 10 mg PO Q6H PRN #30 tablet 08/30/15 [Rx] ALPRAZolam [Xanax 1 MG Tablet] 1 tab PO BID PRN #60 tablet 06/14/16 [Rx] Loperamide [Imodium] 2 mg PO TID PRN 09/21/16 [History] Temazepam [Restoril] 30 mg PO HS #30 cap 12/10/16 [Rx] Exemestane [Aromasin] 25 mg PO DAILY #90 tablet 09/27/17 [Rx] Albuterol Sulfate [Albuterol Inhaler] 1 - 2 puff IH Q4-6H PRN #1 inhaler [Rx] Aspirin [Lo-Dose Aspirin EC] 81 mg PO DAILY 12/06/17 [History] BuPROPion SR (12 HR) [Wellbutrin SR] 200 mg PO DAILY 12/06/17 [History] Cholecalciferol (Vitamin D3) [Vitamin D3] 1,000 unit PO DAILY 12/06/17 [History] FLUoxetine HCl [Prozac] 60 mg PO DAILY 12/06/17 [History] Gabapentin [Neurontin] 300 mg PO BID 12/06/17 [History] Lovastatin 40 mg PO DAILY 12/06/17 [History] Ipratropium/Albuterol Neb [Duoneb] 3 ml IH Q6HR #120 inhsol 12/09/17 [Rx] Umeclidinium [place] [Incruse Ellipta] 1 puff IH DAILY 12/24/17 [History] Everolimus [Afinitor] 10 mg PO DAILY #30 tablet 01/07/18 [Rx] Diaper,Brief,Adult, Disposable [Depend Fit-Flex] 1 each MC TID #100 each [Rx] FentaNYL PATCH [Duragesic] 50 mcg TD Q72H 30 Days #10 patch.td72 02/18/18 [Rx] Loratadine [Claritin] 10 mg PO DAILY #30 tablet 02/18/18 [Rx] Omeprazole [PriLOSEC] 20 mg PO BIDAC #60 cap 02/18/18 [Rx] Oxycodone HCl/Acetaminophen [Percocet 10-325 mg Tablet] 1 tab PO Q6HR 30 Days # 120 tablet 02/18/18 [Rx] Propranolol [Inderal] 20 mg PO DAILY #30 tablet 02/18/18 [Rx] predniSONE [PredniSONE] 15 mg PO DAILY #45 tablet 02/18/18 [Rx] 3 Allergy/AdvReac Type Severity Reaction Status Date / Time arthritis medication Allergy Rash Uncoded 03/10/18 09:30 All Systems PM: A 10-system review of systems was performed and is negative for pertinent findings except as documented above in the HPI. - Constitutional Vitals: Temp Pulse Resp BP Pulse Ox 99.8 F H 96 18 115/57 100 03/10/18 07:37 03/10/18 09:36 03/10/18 09:36 03/10/18 09:36 03/10/18 09:36 Exam: General: Alert and oriented x 3, not in acute distress. HEENT:EOM, pupils equal, round and reactive. Cardiovascular:Normal S1 & S2, No JVD. Pulse regular. Lungs: scattered wheezes bilaterally, no rhonchi/rales Abdomen:Soft, non-tender, no rigidity. Extremities:No deformity or swelling Neurological:Normal cognition and motor skills. Non-focal Skin:Normal color, no rash, no lesions. Pulses:Carotid and radial pulses normal +2. Rest of the physical exam is non contributory Internal Med - H&P Results - Labs CBC & Chem 7: 03/10/18 08:07 03/10/18 08:07 - Assessment and plan (1) Sepsis Current Visit: Yes Status: Acute Assessment and plan: Patient's presenting complaint, low-grade temperature, borderline tachycardia, and leukocytosis raises concern for sepsis. Possibly from lung. Urinalysis -ve for nitrite or LE. recent hospitalization in 12/2017 receiving azithromycin was given zosyn/cefepime/levaquin in the ED -> will give vanc/zosyn/ azithromycin for MRSA and pseudomonal coverage as well as atypical lactic acid normal Follow-up on blood cultures high risk of complications given her other comorbidities and immunocompromised status Qualifiers: Sepsis type: sepsis due to unspecified organism Qualified Code(s): A41.9 - Sepsis, unspecified organism (2) HCAP (healthcare-associated pneumonia) Current Visit: Yes Status: Acute Assessment and plan: Antibiotics as above (3) COPD exacerbation Current Visit: Yes Status: Acute Assessment and plan: Secondary to HCAP abx as above IV solumedrol, bronchodilators Respiratory infection panel (4) Elevated troponin Current Visit: Yes Status: Acute Assessment and plan: Had a similar type of trop elevation when she was admitted in December Likely demand ischemia from sepsis Last echo 11/2017 showed normal EF and moderate LV diastolic dysfunction. trend troponin aspirin 324mg now telemetry limited Echo for EF lipid panel check recently, continue statin once reconciled (5) Metastatic breast cancer Current Visit: No Status: Chronic Assessment and plan: Follows with oncology as an outpatient On Everolimus and Aromasin (6) Thrombocytopenia Current Visit: No Status: Chronic Assessment and plan: Chronic, known liver metastases No signs and symptoms of bleeding Monitor (7) Tobacco dependence Current Visit: No Status: Chronic Assessment and plan: Counseling provided, declines nicotine replacement therapy (8) DVT prophylaxis Current Visit: Yes Status: Acute Assessment and plan: Subcutaneous heparin - Time Spent With Patient Total time spent is greater than 50% in coordination of care (as documented) at patient's floor/unit and/or counseling patient:
[2018-03-10] MEDS ORDERED: Aspirin 325 MG TABLET PO ONE (10:27)
[2018-03-10] MEDS ORDERED: MethylPREDNISolone 40 MG/ML VIAL IVP SCH (10:30)
[2018-03-10] MEDS ORDERED: Ipratropium/Albuterol Neb 3 ML ONE (10:52)
[2018-03-10] MEDS ORDERED: Vancomycin 1 EACH in 0.9 % Sodium Chloride 250 ML IVPB SCH (11:00)
[2018-03-10] MEDS: Ipratropium/Albuterol Neb 3 ML IH SCH ×4 (11:08→23:43)
--- NOTE | 2018-03-10 12:35 | Emergency Department Note ---
Disposition Clinical Impression: Pneumonia Qualifiers: Pneumonia type: due to unspecified organism Laterality: unspecified laterality Lung location: unspecified part of lung Qualified Code(s): J18.9 - Pneumonia, unspecified organism Disposition: Admitted As Inpatient General Adult HPI - General Chief complaint: ED Fever Stated complaint: fever/on chemo Time Seen by Provider: 03/10/18 06:58 Source: patient Limitations: no limitations Nursing Notes Reviewed: Yes Vital Signs Reviewed: Yes - History of Present Illness HPI Narrative: This is a 57-year-old female with a history of breast cancer with metastasis who presents with concern for fever. Apparently last night she began to act altered, had findings of fever. She was given Percocet which contained acetaminophen with improvement of her fever but she still continued to have some degree of altered mental status and also had concern for underlying infection. She was feeling weak. She is taking oral chemotherapy at this time. She has no urinary symptoms or cough. General: No acute distress HEENT: Pupils equal and reactive to light, extraoccular muscle movement is normal, TMS are clear bilaterally. Heart: RRR, No murmor rub or gallop Lungs: lungs clear, no wheezing, rales or ronchi. ABD: SNT, no focal areas or tenderness, no guarding or rebound tenderness. Extremities: No cyanosis, clubbing or edema Neuro: CN 2-12 in tact, no focal deficit. strength 5/5. 12 point review systems is completed, pertinent positives are discussed. Medical decision making Findings consistent with pneumonia. Broad-spectrum antibiotics were administered. Subsequently found to be anemic. No indication to transfusion at this time. She was given IV fluids, pancultures were obtained. The patient be admitted the hospital for treatment of fever in the setting of underlying immunosuppression from chemotherapy and findings of pneumonia. Pain Scale: 0 - Related Data Home Medications Medication Instructions Recorded Confirmed Loperamide [Imodium] 2 mg PO TID PRN 09/21/16 02/18/18 Aspirin [Lo-Dose Aspirin EC] 81 mg PO DAILY 12/06/17 02/18/18 BuPROPion SR (12 HR) [Wellbutrin 200 mg PO DAILY 12/06/17 02/18/18 SR] Cholecalciferol (Vitamin D3) 1,000 unit PO DAILY 12/06/17 02/18/18 [Vitamin D3] FLUoxetine HCl [Prozac] 60 mg PO DAILY 12/06/17 02/18/18 Gabapentin [Neurontin] 300 mg PO BID 12/06/17 02/18/18 Lovastatin 40 mg PO DAILY 12/06/17 02/18/18 Umeclidinium [place] [Incruse 1 puff IH DAILY 12/24/17 02/18/18 Ellipta] Previous Rx's Medication Instructions Recorded Prochlorperazine Maleate 10 mg PO Q6H PRN #30 tablet 08/30/15 [Compazine] ALPRAZolam [Xanax 1 MG Tablet] 1 tab PO BID PRN #60 tablet 06/14/16 Temazepam [Restoril] 30 mg PO HS #30 cap 12/10/16 Exemestane [Aromasin] 25 mg PO DAILY #90 tablet 09/27/17 Albuterol Sulfate [Albuterol 1 - 2 puff IH Q4-6H PRN #1 inhaler 10/22/17 Inhaler] Ipratropium/Albuterol Neb [Duoneb] 3 ml IH Q6HR #120 inhsol 12/09/17 Everolimus [Afinitor] 10 mg PO DAILY #30 tablet 01/07/18 Diaper,Brief,Adult, Disposable 1 each MC TID #100 each 01/27/18 [Depend Fit-Flex] FentaNYL PATCH [Duragesic] 50 mcg TD Q72H 30 Days #10 02/18/18 patch.td72 Loratadine [Claritin] 10 mg PO DAILY #30 tablet 02/18/18 Omeprazole [PriLOSEC] 20 mg PO BIDAC #60 cap 02/18/18 Oxycodone HCl/Acetaminophen 1 tab PO Q6HR 30 Days #120 tablet 02/18/18 [Percocet 10-325 mg Tablet] Propranolol [Inderal] 20 mg PO DAILY #30 tablet 02/18/18 predniSONE [PredniSONE] 15 mg PO DAILY #45 tablet 02/18/18 Allergies Allergy/AdvReac Type Severity Reaction Status Date / Time arthritis medication Allergy Rash Uncoded 03/10/18 09:30 Past Medical History - Past Medical History Medical history: Reports: arthritis, cancer, COPD, fibromyalgia, GERD, hyperlipidemia, other Surgical history: Reports: LILIANE/BSO, other Psychiatric history: Reports: no psych history [employer] history: Reports: no [employer] history - Social History Smoking Status: Current every day smoker Smokeless Tobacco Status: No Alcohol use: Reports: none Drug use: Reports: none Physical Exam - General Limitations: no limitations General appearance: alert, in no apparent distress Course Vital Signs Temperature 100.0 F H 03/10/18 07:04 Pulse Rate 99 03/10/18 07:04 Respiratory Rate 18 03/10/18 07:04 Blood Pressure 114/52 03/10/18 07:04 O2 Sat by Pulse Oximetry 97 03/10/18 07:04 Temperature 98.4 F 03/10/18 11:10 Pulse Rate 83 03/10/18 11:10 Respiratory Rate 17 03/10/18 11:10 Blood Pressure 97/52 03/10/18 11:10 O2 Sat by Pulse Oximetry 98 03/10/18 11:10 Oxygen Delivery Oxygen Delivery Nasal Cannula Medical Decision Making - Lab Data Result diagrams: 03/10/18 08:07 03/10/18 08:07 Lab Results 03/10/18 03/10/18 03/10/18 Range/Units 08:07 08:07 08:07 WBC 19.6 H (4.3-11.1) K/mcL RBC 3.05 L (3.82-4.97) M/mcL Hgb 8.2 L (11.5-15.4) g/dL Hct 26.8 L (35.3-44.9) % MCV 87.9 (83.0-100.0) fL MCH 26.9 L (28.0-33.3) pg MCHC 30.6 L (31.6-35.5) g/dL RDW 16.7 H (11.5-14.5) % Plt Count 109 L (140-400) K/mcL MPV 12.0 (9.4-12.4) fL Immature Gran % 1.1 (0-4) % Seg Neutrophils % 91.0 % Lymphocytes % 2.3 % Monocytes % 5.3 % Eosinophils % 0.1 % Basophils % 0.2 % Neutrophils # 17.8 H (1.6-8.9) K/mcL Lymphocytes # 0.4 L (0.6-4.6) K/mcL Monocytes # 1.0 (0.0-1.3) K/mcL Eosinophils # 0.0 (0.0-0.6) K/mcL Basophils # 0.0 (0.0-0.2) K/mcL PT 13.8 H (9.4-12.1) Seconds INR 1.2 APTT 28.9 (26.0-36.0) Seconds Sodium 135 L (136-145) mEq/L Potassium 3.4 L (3.5-5.1) mEq/L Chloride 100 (98-107) mEq/L Carbon Dioxide 25 (23-29) mEq/L BUN 11 (6-20) mg/dL Creatinine 1.12 (0.60-1.20) mg/dL Est GFR ( Amer) > 60 (> 60) Est GFR (Non-Af Amer) 50 L (> 60) BUN/Creatinine Ratio 10 (6-26) Glucose 196 H (70-105) mg/dL Calculated Osmolality 285 (280-300) Lactic Acid (0.5-2.2) mmol/L Calcium 8.0 L (8.6-10.3) mg/dL Phosphorus 2.9 (2.7-4.5) mg/dL Magnesium 2.0 (1.6-2.6) mg/dL Total Bilirubin 0.6 (0.3-1.0) mg/dL Direct Bilirubin 0.2 (0.0-0.2) mg/dL Indirect Bilirubin 0.4 (0.0-1.2) mg/dL AST 23 (13-39) Units/L ALT 14 (7-52) Units/L Alkaline Phosphatase 105 H (34-104) Units/L Ammonia (16-53) mcmol/L Troponin I 0.08 H* (< 0.04) ng/mL B-Natriuretic Peptide (Less than 100) pg/mL Serum Total Protein 5.4 L (6.4-8.9) g/dL Albumin 2.7 L (3.5-5.7) g/dL Globulin 2.7 (2.4-3.5) g/dL Albumin/Globulin Ratio 1.0 L (1.1-2.2) Urine Color (Yellow) Urine Clarity (Clear) Urine pH (5.0-8.0) pH Units Ur Specific Spring (1.010-1.025) Urine Protein (Neg-Trace) mg/dL Urine Glucose (UA) (Normal) mg/dL Urine Ketones (Negative) mg/dL Urine Blood (Negative) Urine Nitrite (Negative) Urine Bilirubin (Negative) Urine Urobilinogen (Normal) mg/dL Ur Leukocyte Esterase (Negative) Urine Microscopic RBC (0-3) per hpf Urine Microscopic WBC (0-3) per hpf Ur Squamous Epith Cells (None-Few) per lpf Urine Bacteria (None-Few) per hpf Hyaline Casts (None-Few) per lpf Ur Culture Indicated? (NO) 03/10/18 03/10/18 03/10/18 Range/Units 08:07 08:07 08:07 WBC (4.3-11.1) K/mcL RBC (3.82-4.97) M/mcL Hgb (11.5-15.4) g/dL Hct (35.3-44.9) % MCV (83.0-100.0) fL MCH (28.0-33.3) pg MCHC (31.6-35.5) g/dL RDW (11.5-14.5) % Plt Count (140-400) K/mcL MPV (9.4-12.4) fL Immature Gran % (0-4) % Seg Neutrophils % % Lymphocytes % % Monocytes % % Eosinophils % % Basophils % % Neutrophils # (1.6-8.9) K/mcL Lymphocytes # (0.6-4.6) K/mcL Monocytes # (0.0-1.3) K/mcL Eosinophils # (0.0-0.6) K/mcL Basophils # (0.0-0.2) K/mcL PT (9.4-12.1) Seconds INR APTT (26.0-36.0) Seconds Sodium (136-145) mEq/L Potassium (3.5-5.1) mEq/L Chloride (98-107) mEq/L Carbon Dioxide (23-29) mEq/L BUN (6-20) mg/dL Creatinine (0.60-1.20) mg/dL Est GFR ( Amer) (> 60) Est GFR (Non-Af Amer) (> 60) BUN/Creatinine Ratio (6-26) Glucose (70-105) mg/dL Calculated Osmolality (280-300) Lactic Acid 1.1 (0.5-2.2) mmol/L Calcium (8.6-10.3) mg/dL Phosphorus (2.7-4.5) mg/dL Magnesium (1.6-2.6) mg/dL Total Bilirubin (0.3-1.0) mg/dL Direct Bilirubin (0.0-0.2) mg/dL Indirect Bilirubin (0.0-1.2) mg/dL AST (13-39) Units/L ALT (7-52) Units/L Alkaline Phosphatase (34-104) Units/L Ammonia 32 (16-53) mcmol/L Troponin I (< 0.04) ng/mL B-Natriuretic Peptide 569 H (Less than 100) pg/mL Serum Total Protein (6.4-8.9) g/dL Albumin (3.5-5.7) g/dL Globulin (2.4-3.5) g/dL Albumin/Globulin Ratio (1.1-2.2) Urine Color (Yellow) Urine Clarity (Clear) Urine pH (5.0-8.0) pH Units Ur Specific Spring (1.010-1.025) Urine Protein (Neg-Trace) mg/dL Urine Glucose (UA) (Normal) mg/dL Urine Ketones (Negative) mg/dL Urine Blood (Negative) Urine Nitrite (Negative) Urine Bilirubin (Negative) Urine Urobilinogen (Normal) mg/dL Ur Leukocyte Esterase (Negative) Urine Microscopic RBC (0-3) per hpf Urine Microscopic WBC (0-3) per hpf Ur Squamous Epith Cells (None-Few) per lpf Urine Bacteria (None-Few) per hpf Hyaline Casts (None-Few) per lpf Ur Culture Indicated? (NO) 03/10/18 Range/Units 08:39 WBC (4.3-11.1) K/mcL RBC (3.82-4.97) M/mcL Hgb (11.5-15.4) g/dL Hct (35.3-44.9) % MCV (83.0-100.0) fL MCH (28.0-33.3) pg MCHC (31.6-35.5) g/dL RDW (11.5-14.5) % Plt Count (140-400) K/mcL MPV (9.4-12.4) fL Immature Gran % (0-4) % Seg Neutrophils % % Lymphocytes % % Monocytes % % Eosinophils % % Basophils % % Neutrophils # (1.6-8.9) K/mcL Lymphocytes # (0.6-4.6) K/mcL Monocytes # (0.0-1.3) K/mcL Eosinophils # (0.0-0.6) K/mcL Basophils # (0.0-0.2) K/mcL PT (9.4-12.1) Seconds INR APTT (26.0-36.0) Seconds Sodium (136-145) mEq/L Potassium (3.5-5.1) mEq/L Chloride (98-107) mEq/L Carbon Dioxide (23-29) mEq/L BUN (6-20) mg/dL Creatinine (0.60-1.20) mg/dL Est GFR ( Amer) (> 60) Est GFR (Non-Af Amer) (> 60) BUN/Creatinine Ratio (6-26) Glucose (70-105) mg/dL Calculated Osmolality (280-300) Lactic Acid (0.5-2.2) mmol/L Calcium (8.6-10.3) mg/dL Phosphorus (2.7-4.5) mg/dL Magnesium (1.6-2.6) mg/dL Total Bilirubin (0.3-1.0) mg/dL Direct Bilirubin (0.0-0.2) mg/dL Indirect Bilirubin (0.0-1.2) mg/dL AST (13-39) Units/L ALT (7-52) Units/L Alkaline Phosphatase (34-104) Units/L Ammonia (16-53) mcmol/L Troponin I (< 0.04) ng/mL B-Natriuretic Peptide (Less than 100) pg/mL Serum Total Protein (6.4-8.9) g/dL Albumin (3.5-5.7) g/dL Globulin (2.4-3.5) g/dL Albumin/Globulin Ratio (1.1-2.2) Urine Color Yellow (Yellow) Urine Clarity Cloudy A (Clear) Urine pH 5.5 (5.0-8.0) pH Units Ur Specific [place] 1.023 (1.010-1.025) Urine Protein Negative (Neg-Trace) mg/dL Urine Glucose (UA) Normal (Normal) mg/dL Urine Ketones 15 H (Negative) mg/dL Urine Blood Trace H (Negative) Urine Nitrite Negative (Negative) Urine Bilirubin Negative (Negative) Urine Urobilinogen Normal (Normal) mg/dL Ur Leukocyte Esterase Negative (Negative) Urine Microscopic RBC 0-3 (0-3) per hpf Urine Microscopic WBC 0-3 (0-3) per hpf Ur Squamous Epith Cells Many H (None-Few) per lpf Urine Bacteria None Seen (None-Few) per hpf Hyaline Casts None Seen (None-Few) per lpf Ur Culture Indicated? NO (NO)
[2018-03-10] MEDS ORDERED: 0.9 % Sodium Chloride 500 ML IVC PRN (13:35)
[2018-03-10] MEDS: MethylPREDNISolone 40 MG/ML VIAL IVP SCH ×2 (13:49→17:00)
[2018-03-10] MEDS ORDERED: Potassium Chloride Elixir 20 MEQ/15 ML UDC PO ONE (14:34)
[2018-03-10] MEDS ORDERED: Piperacillin/Tazobactam 3.375 GM in Water for inj. (sterile) 20 ML 20 ML IVP SCH (16:00)
[2018-03-10] MEDS: Piperacillin/Tazobactam 3.375 GM in 0.9 % Sodium Chloride Mini Bag 100 ML IVP SCH (16:57)
[2018-03-10] MEDS: *HR* Heparin 5,000 UNIT/ML VIAL SQ SCH (17:00)
[2018-03-10 17:01] LABS: Adenovirus Not Detected (Not Detect); Bordetella Pertussis Not Detected (Not Detect); Chlamydophila pneumoniae Not Detected (Not Detect); Coronavirus 229E Not Detected (Not Detect); Coronavirus HKU1 Not Detected (Not Detect); Coronavirus NL63 Not Detected (Not Detect); Coronavirus OC43 Not Detected (Not Detect); Human Metapneumovirus Not Detected (Not Detect); Human Rhinovirus/Enterovirus Not Detected (Not Detect); Influenza A Subtype 2009 H1 Not Detected (Not Detect); Influenza A Untypeable Not Detected (Not Detect); Influenza B Not Detected (Not Detect); Mycoplasma pneumoniae Not Detected (Not Detect); Parainfluenza Virus 1 Not Detected (Not Detect); Parainfluenza Virus 2 Not Detected (Not Detect); Parainfluenza Virus 3 Not Detected (Not Detect); Parainfluenza Virus 4 Not Detected (Not Detect); Respiratory Syncytial Virus Not Detected (Not Detect)
[2018-03-10] MEDS: *HR* OxyCODONE/APAP 10/325 TABLET PO PRN (21:04)
[2018-03-11] MEDS: Piperacillin/Tazobactam 3.375 GM in 0.9 % Sodium Chloride Mini Bag 100 ML IVP SCH (01:15)
[2018-03-11 05:09] LABS: Basophils % 0.1 %; Hematocrit 29.1 % (35.3-44.9); Hemoglobin 8.7 g/dL (11.5-15.4); Immature Granulocytes % 0.6 % (0-4); Lymphocytes # 0.2 K/mcL (0.6-4.6); Lymphocytes % 1.3 %; Mean Corpuscular HGB Conc 29.9 g/dL (31.6-35.5); Mean Corpuscular Hemoglobin 26.3 pg (28.0-33.3); Mean Corpuscular Volume 87.9 fL (83.0-100.0); Mean Platelet Volume 11.6 fL (9.4-12.4); Monocytes # 0.1 K/mcL (0.0-1.3); Monocytes % 0.5 %; Platelet Count 128 K/mcL (140-400); Red Blood Count 3.31 M/mcL (3.82-4.97); Red Cell Distribution Width 16.2 % (11.5-14.5); Segmented Neutrophils % 97.5 %
[2018-03-11 05:13] LABS: Neutrophils # 14.3 K/mcL (1.6-8.9)
[2018-03-11 05:26] LABS: BUN/Creatinine Ratio 12 (6-26); Blood Urea Nitrogen 11 mg/dL (6-20); Calcium 8.1 mg/dL (8.6-10.3); Carbon Dioxide 23 mEq/L (23-29); Chloride 105 mEq/L (98-107); Glucose 210 mg/dL (70-105); Magnesium 2.3 mg/dL (1.6-2.6); Osmolality,Calculated 294 (280-300); Potassium 3.9 mEq/L (3.5-5.1); Sodium 139 mEq/L (136-145); eGFR For Non-African Americans > 60 (> 60)
[2018-03-11 05:39] LABS: Platelet Estimate Slight Decrease (Normal)
[2018-03-11] MEDS: *HR* Heparin 5,000 UNIT/ML VIAL SQ SCH ×2 (06:41→17:55)
[2018-03-11] MEDS: MethylPREDNISolone 40 MG/ML VIAL IVP SCH ×2 (06:41→17:56)
[2018-03-11] MEDS: Ipratropium/Albuterol Neb 3 ML IH SCH ×4 (07:20→19:48)
[2018-03-11] MEDS: Piperacillin/Tazobactam 3.375 GM in 0.9 % Sodium Chloride Mini Bag 100 ML IVPB SCH ×3 (08:37→23:43)
[2018-03-11] MEDS: Azithromycin 500 MG in D5% in Water 250 ML IVPB SCH (08:38)
[2018-03-11] MEDS ORDERED: Azithromycin 500 MG in D5% in Water 250 ML IVPB SCH (09:00)
[2018-03-11] MEDS: *HR* OxyCODONE/APAP 10/325 TABLET PO PRN ×2 (10:44→16:03)
[2018-03-11] MEDS ORDERED: Loratadine 10 MG TABLET PO PRN (11:30)
[2018-03-11] MEDS ORDERED: *HR* FentaNYL PATCH 50 MCG PATCH TD SCH (11:30)
[2018-03-11] MEDS ORDERED: FLUoxetine 20 MG CAPSULE PO SCH (11:30)
[2018-03-11] MEDS ORDERED: NON-FORMULARY MEDICATION 1 EACH EACH (Fluoxetine Hcl [Fluoxetine Hcl] 40 MG) PO SCH (11:30)
[2018-03-11] MEDS: ALPRAZolam 1 MG TABLET PO PRN ×2 (11:59→16:11)
[2018-03-11] MEDS: Folic Acid 1 MG TABLET PO SCH (14:14)
[2018-03-11] MEDS: Exemestane [Aromasin] 25 MG PO SCH (14:20)
[2018-03-11] MEDS: Everolimus [Afinitor] 10 MG PO SCH (14:20)
--- NOTE | 2018-03-11 18:32 | Electrocardiograph Report ---
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
--- NOTE | 2018-03-11 21:59 | Internal Med Progress Note ---
Hospitalist Progress Note - Encounter Date of Encounter: 03/11/18 Time of Encounter: 19:00 - Subjective Interval History: SUBJECTIVE: The patient feels better. She would like to go home immediately. However, she continues to be very hypoxic. She uses supplemental oxygen at 3 L/min; was not using before this hospitalization. She gets IV antibiotics. She has a mild cough but not wheezing. Denies abdominal pain, nausea and vomiting. She has normal urination. OBJECTIVE: Skin: Free of rash and discoloration. ENMT: Oral/pharyngeal mucosa is normal in appearance. Eyes: Sclera is white. There is no discharge from eyes. Respiratory: Normal breath sounds; no crackles or wheezes. CV: Heart is regular; no gallop or murmur. GI: Abdomen is soft and not tender. There is no palpable mass or visceromegaly. Neuro: There is no focal deficits. ASSESSMENT AND PLAN: Pneumonia/acute hypoxic respiratory failure. Getting better. She is on IV vancomycin and IV Zosyn/IV Zithromax. She is on IV Solu-Medrol. She is on nebulizer treatments with DuoNeb. She needs supplemental oxygen. Elevated troponin. Likely secondary to demand ischemia. She was septic at admission. Metastatic breast cancer, stage IV. This makes her immunocompromised. Thrombocytopenia. Secondary to left breast cancer/treatments. DISPOSITION: I asked her to be patient for a few days. She will be pushing me for discharge tomorrow. I will check her blood cultures and other cultures first. - Exam Vitals: Temp Pulse Resp BP Pulse Ox 98.2 F 79 15 113/52 98 03/11/18 20:27 03/11/18 20:27 03/11/18 20:27 03/11/18 20:27 03/11/18 20:27 Exam: xx - Assessment and Plan (1) HCAP (healthcare-associated pneumonia) Current Visit: Yes Status: Acute (2) COPD exacerbation Current Visit: Yes Status: Acute (3) Acute respiratory failure with hypoxia Current Visit: Yes Status: Acute (4) Elevated troponin Current Visit: Yes Status: Acute (5) Metastatic breast cancer Current Visit: No Status: Chronic (6) Thrombocytopenia Current Visit: No Status: Chronic - Time Spent with Patient Total time spent is greater than 50% in coordination of care (as documented) at patient's floor/unit and/or counseling patient: 25 - 35 minutes Plan of Care Discussed with: patient Internal Medicine: Result - Labs CBC & Chem 7: 03/11/18 04:49 03/11/18 04:49 - ABG Interpretation ABG results: PT/INR, D-dimer PT 13.8 Seconds (9.4-12.1) H 03/10/18 08:07 Consult Discharge Plan - Plan Referrals: Armando Root MD [Primary Care Provider] -
[2018-03-12] MEDS: *HR* Heparin 5,000 UNIT/ML VIAL SQ SCH ×2 (05:11→17:15)
[2018-03-12] MEDS: MethylPREDNISolone 40 MG/ML VIAL IVP SCH ×2 (05:11→17:15)
[2018-03-12 05:18] LABS: Hematocrit 26.7 % (35.3-44.9); Immature Granulocytes % 0.7 % (0-4); Lymphocytes % 0.8 %; Mean Corpuscular Hemoglobin 26.7 pg (28.0-33.3); Mean Platelet Volume 12.5 fL (9.4-12.4); Platelet Count 132 K/mcL (140-400); Red Cell Distribution Width 16.4 % (11.5-14.5); Segmented Neutrophils % 95.4 %
[2018-03-12 05:19] LABS: Basophils % 0.1 %; Lymphocytes # 0.1 K/mcL (0.6-4.6); Neutrophils # 14.1 K/mcL (1.6-8.9)
[2018-03-12 05:22] LABS: Calcium 7.9 mg/dL (8.6-10.3); Potassium 3.6 mEq/L (3.5-5.1)
[2018-03-12 05:26] LABS: Monocytes # 0.4 K/mcL (0.0-1.3)
[2018-03-12 06:20] LABS: Hypochromasia Present (Not Present); Platelet Estimate Slight Decrease (Normal); Polychromasia 1+ (Not Present)
[2018-03-12] MEDS: Ipratropium/Albuterol Neb 3 ML IH SCH ×4 (07:14→20:01)
[2018-03-12] MEDS: Azithromycin 500 MG in D5% in Water 250 ML IVPB SCH (09:00)
[2018-03-12] MEDS: Aspirin Enteric Coated 81 MG Tablet PO SCH (09:05)
[2018-03-12] MEDS: BuPROPion SR (12 HR) 100 MG TABLET PO SCH (09:05)
[2018-03-12] MEDS: FLUoxetine 20 MG CAPSULE PO SCH (09:05)
[2018-03-12] MEDS: Cholecalciferol (D-3) 1,000 UNIT TABLET PO SCH (09:05)
[2018-03-12] MEDS: Folic Acid 1 MG TABLET PO SCH (09:05)
[2018-03-12] MEDS: Exemestane [Aromasin] 25 MG PO SCH (09:06)
[2018-03-12] MEDS: Everolimus [Afinitor] 10 MG PO SCH (09:06)
[2018-03-12] MEDS: *HR* OxyCODONE/APAP 10/325 TABLET PO PRN ×3 (09:24→20:16)
[2018-03-12] MEDS: ALPRAZolam 1 MG TABLET PO PRN ×2 (09:24→20:16)
[2018-03-12] MEDS: Piperacillin/Tazobactam 3.375 GM in 0.9 % Sodium Chloride Mini Bag 100 ML IVPB SCH ×2 (10:18→17:15)
--- NOTE | 2018-03-12 17:17 | Internal Med Progress Note ---
Hospitalist Progress Note - Encounter Date of Encounter: 03/12/18 Time of Encounter: 17:11 - Subjective Interval History: SUBJECTIVE: The patient is not hypoxic anymore. Her pulse ox on room air is about 92%. She gets short of breath very easily. She does have mild cough but not wheezing. Her appetite is better. Denies abdominal pain, nausea and vomiting. She makes good amounts of urine. She does not have any significant amount of pain. OBJECTIVE: Skin: Free of rash and discoloration. ENMT: Oral/pharyngeal mucosa is normal in appearance. Eyes: Sclera is white. There is no discharge from eyes. Respiratory: Normal breath sounds; no crackles or wheezes. CV: Heart is regular; no gallop or murmur. GI: Abdomen is soft and not tender. There is no palpable mass or visceromegaly. Neuro: There is no focal deficits. ASSESSMENT AND PLAN: Pneumonia/COPD exacerbation/acute hypoxic respiratory failure. Getting better. She is on IV vancomycin and IV Zosyn/IV Zithromax. I will switch her from IV Solu-Medrol to by mouth prednisone. She is on nebulizer treatments with DuoNeb. We will use supplemental oxygen, if needed. Elevated troponin. Likely secondary to demand ischemia. She was septic at admission. Metastatic breast cancer, stage IV. This makes her immunocompromised. We will obtain oncology consult. Anemia/Thrombocytopenia. Secondary to left breast cancer/treatments. Her hemoglobin is 8.0 (8.7 yesterday) with platelet count of 132,000. DISPOSITION: We will continue broad antibiotics coverage for at least a few more days. The patient was treated for 2 episodes of pneumonia in the last 2-3 months. - Exam Vitals: Temp Pulse Resp BP Pulse Ox 98.4 F 79 18 114/55 96 03/12/18 15:11 03/12/18 15:11 03/12/18 15:57 03/12/18 15:11 03/12/18 15:57 Exam: xx - Assessment and Plan (1) HCAP (healthcare-associated pneumonia) Current Visit: Yes Status: Acute (2) COPD exacerbation Current Visit: Yes Status: Acute (3) Acute respiratory failure with hypoxia Current Visit: Yes Status: Acute (4) Elevated troponin Current Visit: Yes Status: Acute (5) Metastatic breast cancer Current Visit: No Status: Chronic (6) Anemia Current Visit: No Status: Acute (7) Thrombocytopenia Current Visit: No Status: Chronic - Time Spent with Patient Total time spent is greater than 50% in coordination of care (as documented) at patient's floor/unit and/or counseling patient: 25 - 35 minutes Plan of Care Discussed with: patient Internal Medicine: Result - Labs CBC & Chem 7: 03/12/18 04:46 03/12/18 04:46 Labs: Short CBC 03/12/18 Range/Units 04:46 WBC 14.8 H (4.3-11.1) K/mcL Hgb 8.0 L (11.5-15.4) g/dL Hct 26.7 L (35.3-44.9) % Plt Count 132 L (140-400) K/mcL Neutrophils # 14.1 H (1.6-8.9) K/mcL BMP 03/12/18 04:46 Sodium 141 Potassium 3.6 Chloride 105 Carbon Dioxide 24 BUN 13 Creatinine 1.17 Glucose 335 H Calcium 7.9 L - ABG Interpretation ABG results: PT/INR, D-dimer PT 13.8 Seconds (9.4-12.1) H 03/10/18 08:07 Consult Discharge Plan - Plan Referrals: Armando Root MD [Primary Care Provider] - (6) Anemia Qualifiers: Other causes of anemia: antineoplastic chemotherapy
--- NOTE | 2018-03-12 17:27 | Oncology Inp Consult Note ---
<Mason Casillas - Last Filed: 03/12/18 18:56> Date of Encounter: 03/12/18 - Data of Consult Requesting Physician: Jamal Kerr Primary Care Provider: Armando Root MD - Consult Narrative History of present illness: I examined this patient and my medical decision-making was reviewed with the Advanced Practice Nurse, Rosa Gonzalez. I agree with the documented findings, disposition and treatment plan as described except to the extent set forth below. Medications and Allergies Prochlorperazine Maleate [Compazine] 10 mg PO Q6H PRN #30 tablet 08/30/15 [Rx] ALPRAZolam [Xanax 1 MG Tablet] 1 tab PO BID PRN #60 tablet 06/14/16 [Rx] Loperamide [Imodium] 2 mg PO TID PRN 09/21/16 [History] Exemestane [Aromasin] 25 mg PO DAILY #90 tablet 09/27/17 [Rx] Aspirin [Lo-Dose Aspirin EC] 81 mg PO DAILY 12/06/17 [History] Cholecalciferol (Vitamin D3) [Vitamin D3] 4,000 unit PO DAILY 12/06/17 [History] FLUoxetine HCl [Prozac] 20 mg PO DAILY 12/06/17 [History] Lovastatin 40 mg PO DAILY 12/06/17 [History] Everolimus [Afinitor] 10 mg PO DAILY #30 tablet 01/07/18 [Rx] FentaNYL PATCH [Duragesic] 50 mcg TD Q72H 30 Days #10 patch.td72 02/18/18 [Rx] Oxycodone HCl/Acetaminophen [Percocet 10-325 mg Tablet] 1 tab PO Q6HR 30 Days # 120 tablet 02/18/18 [Rx] Propranolol [Inderal] 20 mg PO DAILY #30 tablet 02/18/18 [Rx] Albuterol Sulfate [Albuterol Inhaler] 1 - 2 puff IH Q4-6H PRN 03/10/18 [History] FLUoxetine HCl [Fluoxetine HCl] 40 mg PO DAILY 03/10/18 [History] Folic Acid 1 mg PO DAILY 03/10/18 [History] Ipratropium/Albuterol Neb [Duoneb] 3 ml IH Q6HR PRN 03/10/18 [History] Loratadine [Claritin] 10 mg PO DAILY PRN 03/10/18 [History] Omeprazole [PriLOSEC] 20 mg PO BID 03/10/18 [History] buPROPion HCl [Bupropion HCl Sr] 200 mg PO DAILY 03/10/18 [History] predniSONE [PredniSONE] 15 mg PO DAILY 03/10/18 [History] 3 Allergy/AdvReac Type Severity Reaction Status Date / Time arthritis medication Allergy Rash Uncoded 03/10/18 09:30 Oncology - Exam - Constitutional Vitals: Temp Pulse Resp BP Pulse Ox 98.4 F 79 18 114/55 96 03/12/18 15:11 03/12/18 15:11 03/12/18 15:57 03/12/18 15:11 03/12/18 15:57 Oncology - Results Labs: 3 03/12/18 03/12/18 03/11/18 04:46 04:46 22:59 WBC 14.8 H RBC 3.00 L Hgb 8.0 L Hct 26.7 L MCV 89.0 MCH 26.7 L MCHC 30.0 L RDW 16.4 H Plt Count 132 L MPV 12.5 H Immature Gran % 0.7 Seg Neutrophils % 95.4 Lymphocytes % 0.8 Monocytes % 3.0 Eosinophils % 0.0 Basophils % 0.1 Neutrophils # 14.1 H Lymphocytes # 0.1 L Monocytes # 0.4 Eosinophils # 0.0 Basophils # 0.0 Platelet Estimate Slight Decrease L Polychromasia 1+ A Hypochromasia Present A Sodium 141 Potassium 3.6 Chloride 105 Carbon Dioxide 24 BUN 13 Creatinine 1.17 Est GFR ( Amer) 57 L Est GFR (Non-Af Amer) 47 L BUN/Creatinine Ratio 11 Glucose 335 H Calculated Osmolality 305 H Calcium 7.9 L Vancomycin Trough 26 H Consult Discharge Plan - Plan Referrals: Kelly Jennings MD [Partnered Physician] - (Will wait for Rosa gonzalez for the schedule....) Armando Root MD [Primary Care Provider] - 03/20/18 3:15 pm (Please follow up as schedule...) Inpatient Charges Provider: Dr. Abilio Casillas Consult - Inpatient: [id number] <Rosa Gonzalez - Last Filed: 03/13/18 18:32> Date of Encounter: 03/12/18 Time of Encounter: 14:00 Assessment and Plan (1) Metastatic breast cancer Status: Chronic Assessment and plan: Metastatic breast cancer, Stage IV, current treatment includes everolimus and aromasin (initiated 10/06/2017) Radiographic control of disease per imaging January 2018 Discussed goals of care with patient and 2 daughters at bedside, patient wishes to continue treatment on outpatient basis once acute infection resolves Hold Everolimus during acute hospital stay (2) HCAP (healthcare-associated pneumonia) Status: Acute Assessment and plan: Admitted with pneumonia/COPD exacerbation/acute hypoxic respiratory failure- appreciate management per hospitalist team CXR reveals Questionable focal opacity in the left lower lobe which could reflect atelectasis or pneumonia. She is on IV vancomycin and IV Zosyn/IV Zithromax. De-escalating steroids. She is on nebulizer treatments with DuoNeb. She gets very SOB when getting up to [facility] [place]. Encouraged activity as tolerated, hopeful she will continue to symptomatically improve to allow for discharge home with home health - Data of Consult Requesting Physician: Jamal Kerr Primary Care Provider: Armando Root MD - Consult Narrative Reason for consult: metastatic breast cancer History of present illness: Ms. Trejo is a 57 year old female with metastatic breast cancer, Stage IV, current treatment includes everolimus and aromasin (initiated 10/06/2017). S/P multiple lines of treatment, currently on fifth line, refer to Dr. Jennings's clinic note for full oncology treatment summary. CT abdomen/pelvis from January, revealed interval increased size of the presumed right hepatic metastatic lesion likely secondary to necrosis, interval decreased size of the left hepatic lesion, Unchanged bony metastatic lesions within the L4 and L5 segments. She has malignancy related RUQ pain. Pain managed with 50 mcg fentanyl patch and Percocet 10/325. Anxiety controlled with xanax. Ms. Trejo presented to ER with her daughter for fever, chills, SOB and weakness. CXR revealed Left basilar atelectasis versus pneumonia. She met sepsis criteria with tachycardia and leukocytosis. Acute on chronic respiratory failure with hx of COPD. Elevated troponin suspected to be secondary to demand ischemia. Past Med Surg Social Fam HX - Past Medical History Medical history: arthritis, cancer, COPD, fibromyalgia, GERD, hyperlipidemia, other Additional medical history: stage IV breast cancer (L4,L5,RIGHT HIP, LIVER). stage III renal failure. no deficits from previous strokes Psychiatric history: no psych history - Past Surgical History Surgical History: LILIANE/BSO, other Additional surgical history: exploratory abdominal surgery, port - Social History Smoking Status: Current every day smoker Smokeless Tobacco Status: No Alcohol use: none Drug use: none - Family History Mother Living Status: Age at : 90 Cause of : alzheimers Hx Family Cardiac Disorders: Yes (HLD) Hx Family Endocrine Disorder: Yes (DM) Constitutional: Present: as per HPI, anorexia, chills, fatigue, fever(s), malaise, weakness, weight loss Eyes: Absent: change in vision Nose, mouth and throat: Absent: dysphagia Cardiovascular: Absent: chest pain, palpitations Respiratory: Present: cough, dyspnea. Absent: hemoptysis Gastrointestinal: Present: diarrhea, nausea, vomiting. Absent: abdominal pain Additional comments: GI symptoms have since resolved Genitourinary: Absent: dysuria Musculoskeletal: Present: muscle weakness Integumentary: Absent: wounds Neurological: Absent: focal weakness, frequent falls Hematologic/Lymphatic: Present: as per HPI Oncology - Exam - Constitutional Vitals: Temp Pulse Resp BP Pulse Ox 98.4 F 79 18 114/55 96 03/12/18 15:11 03/12/18 15:11 03/12/18 15:57 03/12/18 15:11 03/12/18 15:57 General appearance: cooperative, no acute distress, no febrile - Head Head exam: Present: atraumatic - ENT ENT exam: Present: mucous membranes moist - Respiratory Respiratory exam: Present: decreased breath sounds. Absent: respiratory distress - Cardiovascular Cardiovascular exam: Present: RRR, +S1, +S2 - GI/Abdominal GI/Abdominal exam: Present: normal bowel sounds, soft. Absent: tenderness - Extremities Exam Extremities exam: Absent: calf tenderness - Neurological Exam Neurological exam: Present: alert, oriented X3, no focal deficits, strengths equal and symetr throughout - Psychiatric Psychiatric exam: Present: normal affect, normal mood - Skin Skin exam: Present: dry, intact, normal color, warm
[2018-03-13] MEDS: Piperacillin/Tazobactam 3.375 GM in 0.9 % Sodium Chloride Mini Bag 100 ML IVPB SCH ×3 (01:00→17:45)
[2018-03-13] MEDS: *HR* Heparin 5,000 UNIT/ML VIAL SQ SCH ×2 (05:41→17:45)
[2018-03-13 05:56] LABS: Basophils % 0.1 %; Hematocrit 26.9 % (35.3-44.9); Hemoglobin 8.1 g/dL (11.5-15.4); Immature Granulocytes % 2.9 % (0-4); Lymphocytes # 0.2 K/mcL (0.6-4.6); Lymphocytes % 1.2 %; Mean Corpuscular HGB Conc 30.1 g/dL (31.6-35.5); Mean Corpuscular Hemoglobin 26.6 pg (28.0-33.3); Mean Corpuscular Volume 88.5 fL (83.0-100.0); Mean Platelet Volume 11.7 fL (9.4-12.4); Monocytes # 0.5 K/mcL (0.0-1.3); Monocytes % 3.2 %; Neutrophils # 13.5 K/mcL (1.6-8.9); Nucleated Red Blood Cells 0.4 /100 WBC (0); Platelet Count 141 K/mcL (140-400); Red Blood Count 3.04 M/mcL (3.82-4.97); Red Cell Distribution Width 16.4 % (11.5-14.5); Segmented Neutrophils % 92.6 %
[2018-03-13] MEDS: Ipratropium/Albuterol Neb 3 ML IH PRN (06:10)
[2018-03-13 06:19] LABS: Calcium 7.9 mg/dL (8.6-10.3); Potassium 3.9 mEq/L (3.5-5.1)
[2018-03-13 06:26] LABS: Platelet Estimate Normal (Normal)
[2018-03-13] MEDS: *HR* OxyCODONE/APAP 10/325 TABLET PO PRN ×3 (06:29→18:34)
[2018-03-13] MEDS: Ipratropium/Albuterol Neb 3 ML IH SCH ×4 (07:43→19:33)
[2018-03-13] MEDS: *HR* FentaNYL PATCH 50 MCG PATCH TD SCH (09:44)
[2018-03-13] MEDS: BuPROPion SR (12 HR) 100 MG TABLET PO SCH (09:45)
[2018-03-13] MEDS: Azithromycin 250 MG TABLET PO SCH (09:45)
[2018-03-13] MEDS: Cholecalciferol (D-3) 1,000 UNIT TABLET PO SCH (09:45)
[2018-03-13] MEDS: Aspirin Enteric Coated 81 MG Tablet PO SCH (09:45)
[2018-03-13] MEDS: ALPRAZolam 1 MG TABLET PO PRN (09:46)
[2018-03-13] MEDS: predniSONE 10 MG TABLET PO SCH (09:46)
[2018-03-13] MEDS: FLUoxetine 20 MG CAPSULE PO SCH (09:46)
[2018-03-13] MEDS: Folic Acid 1 MG TABLET PO SCH (11:38)
[2018-03-13] MEDS: Exemestane [Aromasin] 25 MG PO SCH (11:39)
[2018-03-13] MEDS ORDERED: Aminoglycoside Consult 1 EACH MC ONE (12:09)
--- NOTE | 2018-03-13 22:17 | Internal Med Progress Note ---
Hospitalist Progress Note - Encounter Date of Encounter: 03/13/18 Time of Encounter: 19:00 - Subjective Interval History: SUBJECTIVE: She complains of being weak. It is associated with dyspnea on exertion. She has good oxygen saturation at rest (on room air oxygen). She does have mild cough but not wheezing. Her appetite is fair. Denies abdominal pain, nausea and vomiting. She makes good amounts of urine. She does not have any significant amount of pain. OBJECTIVE: Skin: Free of rash and discoloration. ENMT: Oral/pharyngeal mucosa is normal in appearance. Eyes: Sclera is white. There is no discharge from eyes. Respiratory: Normal breath sounds; no crackles or wheezes. CV: Heart is regular; no gallop or murmur. GI: Abdomen is soft and not tender. There is no palpable mass or visceromegaly. Neuro: There is no focal deficits. ASSESSMENT AND PLAN: Pneumonia/COPD exacerbation/acute hypoxic respiratory failure. Getting better. I will stop her IV vancomycin. I will continue IV Zosyn and by mouth Zithromax. Blood cultures are not growing any organisms. She is on by mouth prednisone. She is on nebulizer treatments with DuoNeb. We will use supplemental oxygen, if needed. Elevated troponin. Likely secondary to demand ischemia. She was septic at admission. Metastatic breast cancer, stage IV. This makes her immunocompromised. See oncology consult. Anemia/Thrombocytopenia. Secondary to left breast cancer/treatments. Hemoglobin is 8.1; 8.0 yesterday. WBC is 14.6 thousand; 14.8 thousand yesterday. Her platelet count recovered; 141,000 today. DISPOSITION: This is her third pneumonia in the last few months. We will discharge her in a couple days, if stable. I will start her on physical therapy today. - Exam Vitals: Temp Pulse Resp BP Pulse Ox 98.3 F 90 16 132/72 95 03/13/18 19:28 03/13/18 19:28 03/13/18 19:33 03/13/18 19:28 03/13/18 19:33 Exam: xx - Assessment and Plan (1) HCAP (healthcare-associated pneumonia) Current Visit: Yes Status: Acute (2) COPD exacerbation Current Visit: Yes Status: Acute (3) Acute respiratory failure with hypoxia Current Visit: Yes Status: Acute (4) Elevated troponin Current Visit: Yes Status: Acute (5) Metastatic breast cancer Current Visit: No Status: Chronic (6) Anemia Current Visit: No Status: Acute (7) Thrombocytopenia Current Visit: No Status: Resolved - Time Spent with Patient Total time spent is greater than 50% in coordination of care (as documented) at patient's floor/unit and/or counseling patient: 25 - 35 minutes Plan of Care Discussed with: patient (and family..) Internal Medicine: Result - Labs CBC & Chem 7: 03/13/18 05:33 03/13/18 05:33 Labs: Short CBC 03/13/18 Range/Units 05:33 WBC 14.6 H (4.3-11.1) K/mcL Hgb 8.1 L (11.5-15.4) g/dL Hct 26.9 L (35.3-44.9) % Plt Count 141 (140-400) K/mcL Neutrophils # 13.5 H (1.6-8.9) K/mcL BMP 03/13/18 05:33 Sodium 140 Potassium 3.9 Chloride 105 Carbon Dioxide 23 BUN 12 Creatinine 1.24 H Glucose 289 H Calcium 7.9 L - ABG Interpretation ABG results: PT/INR, D-dimer PT 13.8 Seconds (9.4-12.1) H 03/10/18 08:07 Consult Discharge Plan - Plan Referrals: Kelly Jennings MD [Partnered Physician] - (Will wait for Rosa diaz for the schedule....) Armando Root MD [Primary Care Provider] - 03/20/18 3:15 pm (Please follow up as schedule...) (6) Anemia Qualifiers: Other causes of anemia: antineoplastic chemotherapy
[2018-03-14] MEDS: Piperacillin/Tazobactam 3.375 GM in 0.9 % Sodium Chloride Mini Bag 100 ML IVPB SCH ×3 (00:33→15:33)
[2018-03-14] MEDS: Ipratropium/Albuterol Neb 3 ML IH PRN ×3 (01:27→18:07)
[2018-03-14] MEDS: *HR* Heparin 5,000 UNIT/ML VIAL SQ SCH ×2 (06:14→17:50)
[2018-03-14] MEDS: *HR* OxyCODONE/APAP 10/325 TABLET PO PRN ×2 (06:48→15:32)
[2018-03-14] MEDS: Ipratropium/Albuterol Neb 3 ML IH SCH ×4 (07:51→21:16)
[2018-03-14] MEDS: Cholecalciferol (D-3) 1,000 UNIT TABLET PO SCH (08:03)
[2018-03-14] MEDS: ALPRAZolam 1 MG TABLET PO PRN ×2 (08:03→17:50)
[2018-03-14] MEDS: Azithromycin 250 MG TABLET PO SCH (08:03)
[2018-03-14] MEDS: Aspirin Enteric Coated 81 MG Tablet PO SCH (08:03)
[2018-03-14] MEDS: BuPROPion SR (12 HR) 100 MG TABLET PO SCH (08:04)
[2018-03-14] MEDS: FLUoxetine 20 MG CAPSULE PO SCH (08:04)
[2018-03-14] MEDS: predniSONE 10 MG TABLET PO SCH (08:04)
[2018-03-14] MEDS: Folic Acid 1 MG TABLET PO SCH (08:07)
[2018-03-14] MEDS: Exemestane [Aromasin] 25 MG PO SCH (08:07)
--- NOTE | 2018-03-14 22:35 | Internal Med Progress Note ---
Hospitalist Progress Note - Encounter Date of Encounter: 03/14/18 Time of Encounter: 19:00 - Subjective Interval History: SUBJECTIVE: She complains of being weak. It is associated with dyspnea on exertion. She seems to be very anxious. She uses supplemental oxygen at 2 L/min; pulse ox is 98%. She does have mild cough but not wheezing. Her appetite is fair. Denies abdominal pain, nausea and vomiting. She makes good amounts of urine. She does not have any significant amount of pain. OBJECTIVE: Skin: Free of rash and discoloration. ENMT: Oral/pharyngeal mucosa is normal in appearance. Eyes: Sclera is white. There is no discharge from eyes. Respiratory: Normal breath sounds; no crackles or wheezes. CV: Heart is regular; no gallop or murmur. GI: Abdomen is soft and not tender. There is no palpable mass or visceromegaly. Neuro: There is no focal deficits. ASSESSMENT AND PLAN: Pneumonia/COPD exacerbation. Acute hypoxic respiratory failure subsided. Getting better. IV vancomycin was stopped yesterday. We continue IV Zosyn and by mouth Zithromax. Blood cultures are not growing any organisms. She is on by mouth prednisone. She is on nebulizer treatments with DuoNeb. We will use supplemental oxygen, if needed. Elevated troponin. Likely secondary to demand ischemia. She was septic at admission. Metastatic breast cancer, stage IV. This makes her immunocompromised. See oncology consult. Anemia. Secondary to treatments of her advanced breast cancer. Hemoglobin remains stable. Thrombocytopenia. Resolved. Debility/anxiety. A referral has been made to ECF. I will make her Xanax scheduled; with when necessary Ativan. DISPOSITION: Awaiting ECF. - Exam Vitals: Temp Pulse Resp BP Pulse Ox 98.1 F 89 16 131/70 93 03/14/18 20:14 03/14/18 20:14 03/14/18 21:18 03/14/18 20:14 03/14/18 21:18 Exam: xx - Assessment and Plan (1) HCAP (healthcare-associated pneumonia) Current Visit: Yes Status: Acute (2) COPD exacerbation Current Visit: Yes Status: Acute (3) Acute respiratory failure with hypoxia Current Visit: Yes Status: Resolved (4) Elevated troponin Current Visit: Yes Status: Acute (5) Metastatic breast cancer Current Visit: No Status: Chronic (6) Anemia Current Visit: No Status: Acute (7) Thrombocytopenia Current Visit: No Status: Resolved (8) Debility Current Visit: Yes Status: Acute (9) Anxiety Current Visit: Yes Status: Acute - Time Spent with Patient Total time spent is greater than 50% in coordination of care (as documented) at patient's floor/unit and/or counseling patient: 25 - 35 minutes Plan of Care Discussed with: patient (and family..) Internal Medicine: Result - Labs CBC & Chem 7: 03/13/18 05:33 03/13/18 05:33 - ABG Interpretation ABG results: PT/INR, D-dimer PT 13.8 Seconds (9.4-12.1) H 03/10/18 08:07 Consult Discharge Plan - Plan Referrals: Kelly Jennings MD [Partnered Physician] - (Will wait for Rosa diaz for the schedule....) Armando Root MD [Primary Care Provider] - 03/20/18 3:15 pm (Please follow up as schedule...) (6) Anemia Qualifiers: Other causes of anemia: antineoplastic chemotherapy
[2018-03-15] MEDS: ALPRAZolam 1 MG TABLET PO SCH ×3 (00:11→21:48)
[2018-03-15] MEDS: *HR* OxyCODONE/APAP 10/325 TABLET PO PRN ×3 (00:12→13:03)
[2018-03-15] MEDS: Ipratropium/Albuterol Neb 3 ML IH PRN ×2 (00:28→04:22)
[2018-03-15] MEDS: Piperacillin/Tazobactam 3.375 GM in 0.9 % Sodium Chloride Mini Bag 100 ML IVPB SCH ×3 (00:54→16:18)
[2018-03-15] MEDS: *HR* Heparin 5,000 UNIT/ML VIAL SQ SCH ×2 (06:25→17:47)
[2018-03-15] MEDS: Ipratropium/Albuterol Neb 3 ML IH SCH ×4 (07:33→19:54)
[2018-03-15] MEDS: FLUoxetine 20 MG CAPSULE PO SCH (08:11)
[2018-03-15] MEDS: Aspirin Enteric Coated 81 MG Tablet PO SCH (08:12)
[2018-03-15] MEDS: Folic Acid 1 MG TABLET PO SCH (08:12)
[2018-03-15] MEDS: BuPROPion SR (12 HR) 100 MG TABLET PO SCH (08:12)
[2018-03-15] MEDS: predniSONE 10 MG TABLET PO SCH (08:12)
[2018-03-15] MEDS: Cholecalciferol (D-3) 1,000 UNIT TABLET PO SCH (08:13)
[2018-03-15] MEDS: Azithromycin 250 MG TABLET PO SCH (08:13)
[2018-03-15] MEDS: Exemestane [Aromasin] 25 MG PO SCH (11:49)
[2018-03-15] MEDS: *HR* LORazepam 0.5 MG TABLET PO PRN (18:04)
--- NOTE | 2018-03-15 22:00 | Internal Med Progress Note ---
Hospitalist Progress Note - Encounter Date of Encounter: 03/15/18 Time of Encounter: 19:00 - Subjective Interval History: SUBJECTIVE: The patient feels weak and nervous. She does not have any resting dyspnea. Her pulse ox is 95% on 2 L/min. She does not report to me any painin the chest or abdomen. She does have mild cough but not wheezing. She makes good amounts of urine. OBJECTIVE: Skin: Free of rash and discoloration. ENMT: Oral/pharyngeal mucosa is normal in appearance. Eyes: Sclera is white. There is no discharge from eyes. Respiratory: Normal breath sounds; no crackles or wheezes. CV: Heart is regular; no gallop or murmur. GI: Abdomen is soft and not tender. There is no palpable mass or visceromegaly. Neuro: There is no focal deficits. I am ordering a chest x-ray, as well as CBC and BMP for tomorrow morning. ASSESSMENT AND PLAN: Pneumonia/COPD exacerbation. Acute hypoxic respiratory failure subsided. Getting better. We continue IV Zosyn and by mouth Zithromax. Blood cultures are not growing any organisms. She is on by mouth prednisone. She is on nebulizer treatments with DuoNeb. We will use supplemental oxygen, if needed. Elevated troponin. Likely secondary to demand ischemia. She was septic at admission. Metastatic breast cancer, stage IV. This makes her immunocompromised. See oncology consult. Anemia. Secondary to treatments of her advanced breast cancer. Hemoglobin remains stable. Thrombocytopenia. Resolved. Debility/anxiety. A referral has been made to ECF. I will make her Xanax scheduled; with when necessary Ativan. DISPOSITION: Awaiting ECF. - Exam Vitals: Temp Pulse Resp BP Pulse Ox 98.2 F 89 16 108/66 95 03/15/18 19:28 03/15/18 19:28 03/15/18 19:28 03/15/18 19:28 03/15/18 19:28 Exam: xx - Assessment and Plan (1) HCAP (healthcare-associated pneumonia) Current Visit: Yes Status: Acute (2) COPD exacerbation Current Visit: Yes Status: Acute (3) Acute respiratory failure with hypoxia Current Visit: Yes Status: Resolved (4) Elevated troponin Current Visit: Yes Status: Acute (5) Metastatic breast cancer Current Visit: No Status: Chronic (6) Anemia Current Visit: No Status: Acute (7) Thrombocytopenia Current Visit: No Status: Resolved (8) Debility Current Visit: Yes Status: Acute (9) Anxiety Current Visit: Yes Status: Acute - Time Spent with Patient Total time spent is greater than 50% in coordination of care (as documented) at patient's floor/unit and/or counseling patient: 25 - 35 minutes Plan of Care Discussed with: patient (and family..) Internal Medicine: Result - Labs CBC & Chem 7: 03/13/18 05:33 03/13/18 05:33 - ABG Interpretation ABG results: PT/INR, D-dimer PT 13.8 Seconds (9.4-12.1) H 03/10/18 08:07 Consult Discharge Plan - Plan Referrals: Kelly Jennings MD [Partnered Physician] - (Will wait for Rosa diaz for the schedule....) Armando Root MD [Primary Care Provider] - 03/20/18 3:15 pm (Please follow up as schedule...) (6) Anemia Qualifiers: Other causes of anemia: antineoplastic chemotherapy
[2018-03-16] MEDS: Piperacillin/Tazobactam 3.375 GM in 0.9 % Sodium Chloride Mini Bag 100 ML IVPB SCH ×3 (00:34→15:43)
[2018-03-16] MEDS: *HR* OxyCODONE/APAP 10/325 TABLET PO PRN ×2 (03:53→09:22)
[2018-03-16] MEDS: Ipratropium/Albuterol Neb 3 ML IH PRN (04:03)
[2018-03-16] MEDS: *HR* LORazepam 0.5 MG TABLET PO PRN (04:29)
[2018-03-16] MEDS: *HR* Heparin 5,000 UNIT/ML VIAL SQ SCH ×2 (06:19→17:30)
[2018-03-16] MEDS: Ipratropium/Albuterol Neb 3 ML IH SCH ×4 (07:30→20:52)
[2018-03-16] MEDS: ALPRAZolam 1 MG TABLET PO SCH ×2 (09:08→20:06)
[2018-03-16] MEDS: Cholecalciferol (D-3) 1,000 UNIT TABLET PO SCH (09:08)
[2018-03-16] MEDS: Folic Acid 1 MG TABLET PO SCH (09:08)
[2018-03-16] MEDS: BuPROPion SR (12 HR) 100 MG TABLET PO SCH (09:09)
[2018-03-16] MEDS: Aspirin Enteric Coated 81 MG Tablet PO SCH (09:09)
[2018-03-16] MEDS: Azithromycin 250 MG TABLET PO SCH (09:09)
[2018-03-16] MEDS: *HR* FentaNYL PATCH 50 MCG PATCH TD SCH (09:10)
[2018-03-16] MEDS: FLUoxetine 20 MG CAPSULE PO SCH (09:22)
[2018-03-16] MEDS: predniSONE 10 MG TABLET PO SCH (09:22)
[2018-03-16] MEDS: Exemestane [Aromasin] 25 MG PO SCH (09:24)
[2018-03-16] MEDS ORDERED: predniSONE 10 MG TABLET PO SCH (12:20)
--- NOTE | 2018-03-16 14:46 | Internal Med Progress Note ---
Hospitalist Progress Note - Encounter Date of Encounter: 03/16/18 Time of Encounter: 14:40 - Subjective Interval History: SUBJECTIVE: The patient feels pretty much the same. He is weak and tired all the time. She needs a lot of assistance for ambulation. Denies chest pain. Denies difficulty breathing; using supplemental oxygen at 2 L/min. She does have mild cough but not wheezing. Denies abdominal pain, nausea and vomiting. She makes good amounts of urine. OBJECTIVE: Skin: Free of rash and discoloration. ENMT: Oral/pharyngeal mucosa is normal in appearance. Eyes: Sclera is white. There is no discharge from eyes. Respiratory: Normal breath sounds; no crackles or wheezes. CV: Heart is regular; no gallop or murmur. GI: Abdomen is soft and not tender. There is no palpable mass or visceromegaly. Neuro: There is no focal deficits. Chest x-ray, CBC and BMP have been ordered for today. ASSESSMENT AND PLAN: Pneumonia/COPD exacerbation. Acute hypoxic respiratory failure subsided. She gets IV Zosyn and by mouth Zithromax. Blood cultures are not growing any organisms. She is on by mouth prednisone. We will decrease dose of prednisone from 30 mg to 20 mg by mouth every morning. She is on nebulizer treatments with DuoNeb. We will use supplemental oxygen, if needed. The patient basically does not need oxygen for resting. Elevated troponin. Likely secondary to demand ischemia. She was septic at admission. Metastatic breast cancer, stage IV. This makes her immunocompromised. See oncology consult. Anemia. Secondary to treatments of her advanced breast cancer. Hemoglobin remains stable. Thrombocytopenia. Resolved. Debility/anxiety. A referral has been made to ECF. She is on scheduled Xanax and when necessary Ativan.. DISPOSITION: Awaiting ECF. - Exam Vitals: Temp Pulse Resp BP Pulse Ox 99.5 F 100 16 132/32 97 03/16/18 11:00 03/16/18 11:00 03/16/18 11:29 03/16/18 11:00 03/16/18 11:29 Exam: xx - Assessment and Plan (1) HCAP (healthcare-associated pneumonia) Current Visit: Yes Status: Acute (2) COPD exacerbation Current Visit: Yes Status: Acute (3) Acute respiratory failure with hypoxia Current Visit: Yes Status: Resolved (4) Elevated troponin Current Visit: Yes Status: Acute (5) Metastatic breast cancer Current Visit: No Status: Chronic (6) Anemia Current Visit: No Status: Acute (7) Thrombocytopenia Current Visit: No Status: Resolved (8) Debility Current Visit: Yes Status: Acute (9) Anxiety Current Visit: Yes Status: Acute - Time Spent with Patient Total time spent is greater than 50% in coordination of care (as documented) at patient's floor/unit and/or counseling patient: 25 - 35 minutes Plan of Care Discussed with: patient (and family..) Internal Medicine: Result - Labs CBC & Chem 7: 03/13/18 05:33 03/13/18 05:33 - ABG Interpretation ABG results: PT/INR, D-dimer PT 13.8 Seconds (9.4-12.1) H 03/10/18 08:07 Consult Discharge Plan - Plan Referrals: Kelly Jennings MD [Partnered Physician] - (Will wait for Rosa diaz for the schedule....) Armando Root MD [Primary Care Provider] - 03/20/18 3:15 pm (Please follow up as schedule...) (6) Anemia Qualifiers: Other causes of anemia: antineoplastic chemotherapy
[2018-03-17] MEDS: Ipratropium/Albuterol Neb 3 ML IH SCH ×7 (00:27→23:15)
[2018-03-17] MEDS: Piperacillin/Tazobactam 3.375 GM in 0.9 % Sodium Chloride Mini Bag 100 ML IVPB SCH ×3 (00:27→17:15)
[2018-03-17] MEDS: *HR* Heparin 5,000 UNIT/ML VIAL SQ SCH ×2 (05:10→17:16)
[2018-03-17] MEDS: *HR* OxyCODONE/APAP 10/325 TABLET PO PRN ×3 (05:10→17:14)
[2018-03-17 05:12] LABS: Basophils % 0.2 %; Eosinophils # 0.1 K/mcL (0.0-0.6); Eosinophils % 0.4 %; Hematocrit 26.5 % (35.3-44.9); Immature Granulocytes % 4.2 % (0-4); Lymphocytes # 0.4 K/mcL (0.6-4.6); Lymphocytes % 2.9 %; Mean Corpuscular HGB Conc 30.2 g/dL (31.6-35.5); Mean Corpuscular Hemoglobin 26.7 pg (28.0-33.3); Mean Corpuscular Volume 88.3 fL (83.0-100.0); Mean Platelet Volume 12.1 fL (9.4-12.4); Monocytes # 0.7 K/mcL (0.0-1.3); Monocytes % 4.6 %; Neutrophils # 13.3 K/mcL (1.6-8.9); Nucleated Red Blood Cells 0.2 /100 WBC (0); Platelet Count 155 K/mcL (140-400); Red Cell Distribution Width 17.2 % (11.5-14.5); Segmented Neutrophils % 87.7 %
[2018-03-17 05:26] LABS: BUN/Creatinine Ratio 10 (6-26); Blood Urea Nitrogen 11 mg/dL (6-20); Calcium 7.7 mg/dL (8.6-10.3); Carbon Dioxide 26 mEq/L (23-29); Chloride 103 mEq/L (98-107); Glucose 129 mg/dL (70-105); Magnesium 2.2 mg/dL (1.6-2.6); Osmolality,Calculated 287 (280-300); Potassium 3.4 mEq/L (3.5-5.1); Sodium 138 mEq/L (136-145); eGFR For Non-African Americans 51 (> 60)
[2018-03-17] MEDS: Cholecalciferol (D-3) 1,000 UNIT TABLET PO SCH (08:03)
[2018-03-17] MEDS: Azithromycin 250 MG TABLET PO SCH (08:03)
[2018-03-17] MEDS: Aspirin Enteric Coated 81 MG Tablet PO SCH (08:04)
[2018-03-17] MEDS: Exemestane [Aromasin] 25 MG PO SCH (08:04)
[2018-03-17] MEDS: FLUoxetine 20 MG CAPSULE PO SCH (08:04)
[2018-03-17] MEDS: BuPROPion SR (12 HR) 100 MG TABLET PO SCH (08:04)
[2018-03-17] MEDS: Folic Acid 1 MG TABLET PO SCH (08:04)
[2018-03-17] MEDS: ALPRAZolam 1 MG TABLET PO SCH (08:04)
[2018-03-17] MEDS ORDERED: Ketorolac 30 MG/ML VIAL IVP ONE (08:51)
[2018-03-17] MEDS: *HR* LORazepam 0.5 MG TABLET PO PRN (14:41)
--- NOTE | 2018-03-17 16:59 | Oncology Inp Progress Note ---
<CarlosRosa L - Last Filed: 03/17/18 19:08> Date of Encounter: 03/17/18 Time of Encounter: 16:00 (1) Metastatic breast cancer Status: Chronic Assessment and plan: Metastatic breast cancer, Stage IV, current treatment includes everolimus and aromasin (initiated 10/06/2017) Radiographic control of disease per imaging January 2018 Discussed goals of care with patient and 2 daughters at bedside, patient wishes to continue treatment on outpatient basis once acute infection resolves We have repeated CA 27.29 and will discuss results as an outpatient She continues to have RUQ pain secondary to liver metastases, s/p radiotherapy without major relief in pain We will place patient on tumor board this week to discuss options for pain control with IR She is planning to discharge to a [facility] care facility for short term rehab During this stay she is not able to receive her everolimus and aromasin but rehabilitation is needed for her to be able to return home and to continue on with treatment moving forward We will arrange for a follow up with Dr. Jennings in about 2 weeks time Oncology: Subj Interval history: Ms. Trejo is resting with family at bedside. She continues to report RUQ pain. She gets SOB with any exertion making getting OOB difficult. She is planning for d/c to short term rehab facility. - Constitutional Vitals: Vital Signs Temp Pulse Resp BP Pulse Ox 03/17/18 16:15 20 97 03/17/18 11:44 99.1 F 98 20 132/72 97 03/17/18 11:04 20 92 03/17/18 08:07 99.2 F 93 18 132/55 92 03/17/18 07:49 18 97 03/17/18 04:23 98.9 F 79 15 132/70 97 03/17/18 03:30 16 98 03/17/18 00:27 15 97 03/17/18 00:13 98.7 F 72 15 139/71 100 03/16/18 22:02 98.4 F 73 16 128/59 98 03/16/18 20:52 16 98 Intake and Output 03/17/18 03/17/18 03/17/18 07:59 15:59 23:59 Intake Total 50 / 50 800 / 800 Output Total 0 / 0 0 / 0 Balance 50 / 50 800 / 800 Intake: IV Fluids 100 / 100 Zosyn 3.375 GM In 0.9 % Sodium 100 / 100 Chloride (Mini-Bag +) 100 ML @ 25 mls/hr IVPB Q8HR [facility] Rx#: [id number] Oral 50 / 50 700 / 700 Output: Urine 0 / 0 0 / 0 Other: Meal Breakfast Percent of Meal Consumed 25% Weight 83.4 kg Patient Weight 03/17/18 23:59 Weight 83.4 kg General appearance: cooperative, no acute distress, no febrile Exam: chronically ill appearing - Head Head exam: Present: atraumatic - ENT ENT exam: Present: mucous membranes moist - Respiratory Respiratory exam: Present: CTAB. Absent: respiratory distress - Cardiovascular Cardiovascular exam: Present: RRR, +S1, +S2 - GI/Abdominal GI/Abdominal exam: Present: normal bowel sounds, soft, tenderness (RUQ) - Extremities Exam Extremities exam: Absent: calf tenderness - Neurological Exam Neurological exam: Present: alert, oriented X3, no focal deficits, strengths equal and symetr throughout - Psychiatric Psychiatric exam: Present: normal affect, normal mood - Skin Skin exam: Present: dry, intact, normal color, warm Oncology: Obj Data - Labs CBC & Chem 7: 03/17/18 04:57 03/17/18 04:57 Labs: Laboratory Results - last 24 hr 03/17/18 03/17/18 04:57 04:57 WBC 15.2 H RBC 3.00 L Hgb 8.0 L Hct 26.5 L MCV 88.3 MCH 26.7 L MCHC 30.2 L RDW 17.2 H Plt Count 155 MPV 12.1 Immature Gran % 4.2 H Seg Neutrophils % 87.7 Lymphocytes % 2.9 Monocytes % 4.6 Eosinophils % 0.4 Basophils % 0.2 Neutrophils # 13.3 H Lymphocytes # 0.4 L Monocytes # 0.7 Eosinophils # 0.1 Basophils # 0.0 Nucleated RBCs/100 WBC 0.2 H Sodium 138 Potassium 3.4 L Chloride 103 Carbon Dioxide 26 BUN 11 Creatinine 1.09 Est GFR ( Amer) > 60 Est GFR (Non-Af Amer) 51 L BUN/Creatinine Ratio 10 Glucose 129 H Calculated Osmolality 287 Calcium 7.7 L Magnesium 2.2 - ABG Interpretation ABG results: PT/INR, D-dimer PT 13.8 Seconds (9.4-12.1) H 03/10/18 08:07 Consult Discharge Plan - Plan Additional Instructions: OXYGEN AT 2-3 L/MIN; KEEP SAO2 AT 90-95%.. NEEDS PHYSICAL THERAPY.. Referrals: Kelly Jennings MD [Partnered Physician] - (Will wait for Rosa diaz for the schedule....) Armando Root MD [Primary Care Provider] - 03/20/18 3:15 pm (Please follow up as schedule...) Prescriptions: LORazepam [Ativan] 0.5 mg PO Q4HR PRN 4 Days #10 tablet PRN Reason: Anxiety Xbqvmydstbnx-Ykpp-Udrdkxzu,Iso [Zosyn 3.375 gm/50 ml Galaxy] 3.375 gm IV Q8HR # 18 froz.piggy ALPRAZolam [Xanax 1 MG Tablet] 1 mg PO BID 5 Days #10 tablet FentaNYL PATCH [Duragesic] 50 mcg TD Q72H 30 Days #1 patch.td72 OxyCODONE/APAP 10/325 [Percocet 10/325 MG] 1 each PO QID 4 Days #10 tablet PredniSONE [Deltasone] 10 mg PO QAM #5 tablet <Kelly Jennings - Last Filed: 03/19/18 16:59> Date of Encounter: 03/17/18 Oncology: Obj Data - Labs CBC & Chem 7: 03/17/18 04:57 03/17/18 04:57 - ABG Interpretation ABG results: PT/INR, D-dimer PT 13.8 Seconds (9.4-12.1) H 03/10/18 08:07 Inpatient Charges Provider: Dr. Jm Jennings Follow up - Inpatient: [id number] - Attending Attestation I examined this patient and my medical decision-making was reviewed with the Advanced Practice Nurse. I agree with the documented findings, disposition and treatment plan as described except to the extent set forth below. 1. Stage IV metastatic breast cancer ER positive She had several lines of treatment as mentioned Currently on Everolimus 2. Anemia hemoglobin I had this is multifactorial. Both breast cancer and Everolimus is playing a role 3. Significant right upper quadrant pain. Likely from liver metastasis invading the capsule. She was evaluated by pain management and according to the patient not a candidate for major intervention. She already had radiation to the liver did not help. Discussed at tumor board to see if she would be a candidate for radiological intervention 4. Episodes of confusion which is also multifactorial. Her pain medications may be playing a role. Ammonia normal at 32 on 03/10/2018
[2018-03-17 17:00] VITALS: BP 120/75
--- NOTE | 2018-03-17 18:08 | Discharge Summary ---
Orders not resulted at time of discharge: Pending orders 03/17/18 18:04 Cancer Antigen 27.29 Routine Date of Encounter: 03/17/18 Time of Encounter: 18:06 - Discharge Diagnosis (1) HCAP (healthcare-associated pneumonia) Priority: Primary Status: Acute (2) COPD exacerbation Priority: Primary Status: Acute (3) Acute respiratory failure with hypoxia Priority: Primary Status: Resolved (4) Elevated troponin Status: Acute (5) Metastatic breast cancer Priority: Primary Status: Chronic (6) Anemia Priority: Primary Status: Chronic Qualifiers: Other causes of anemia: antineoplastic chemotherapy (7) Thrombocytopenia Status: Resolved (8) Debility Priority: Primary Status: Acute (9) Anxiety Priority: Secondary Status: Chronic Hospital course: Ms. Trejo is a 57 year old female Discharge discussed with: patient, family, nurse - Time Spent with Patient Total time spent providing and/or coordinating discharge services: Greater than 30 minutes (50 minutes..) - Discharge Medications Prescriptions: LORazepam [Ativan] 0.5 mg PO Q4HR PRN 4 Days #10 tablet PRN Reason: Anxiety Uqcwbckryjzb-Tdyc-Zsnfmzkz,Iso [Zosyn 3.375 gm/50 ml Galaxy] 3.375 gm IV Q8HR # 18 froz.piggy ALPRAZolam [Xanax 1 MG Tablet] 1 mg PO BID 5 Days #10 tablet FentaNYL PATCH [Duragesic] 50 mcg TD Q72H 30 Days #1 patch.td72 OxyCODONE/APAP 10/325 [Percocet 10/325 MG] 1 each PO QID 4 Days #10 tablet PredniSONE [Deltasone] 10 mg PO QAM #5 tablet Home Medications: Prochlorperazine Maleate [Compazine] 10 mg PO Q6H PRN #30 tablet 08/30/15 [Rx] Loperamide [Imodium] 2 mg PO TID PRN 09/21/16 [History] Exemestane [Aromasin] 25 mg PO DAILY #90 tablet 09/27/17 [Rx] Aspirin [Lo-Dose Aspirin EC] 81 mg PO DAILY 12/06/17 [History] Cholecalciferol (Vitamin D3) [Vitamin D3] 4,000 unit PO DAILY 12/06/17 [History] FLUoxetine HCl [Prozac] 20 mg PO DAILY 12/06/17 [History] Lovastatin 40 mg PO DAILY 12/06/17 [History] Everolimus [Afinitor] 10 mg PO DAILY #30 tablet 01/07/18 [Rx] Propranolol [Inderal] 20 mg PO DAILY #30 tablet 02/18/18 [Rx] FLUoxetine HCl [Fluoxetine HCl] 40 mg PO DAILY 03/10/18 [History] Folic Acid 1 mg PO DAILY 03/10/18 [History] Loratadine [Claritin] 10 mg PO DAILY PRN 03/10/18 [History] Omeprazole [PriLOSEC] 20 mg PO BID 03/10/18 [History] buPROPion HCl [Bupropion HCl Sr] 200 mg PO DAILY 03/10/18 [History] ALPRAZolam [Xanax 1 MG Tablet] 1 mg PO BID 5 Days #10 tablet 03/17/18 [Rx] Azithromycin [Zithromax] 500 mg PO Q24H 7 Days #7 tablet 03/17/18 [Rx] FentaNYL PATCH [Duragesic] 50 mcg TD Q72H 30 Days #1 patch.td72 03/17/18 [Rx] Heparin 5,000 unit SQ Q12HR vial 03/17/18 [Rx] Ipratropium/Albuterol Neb [Duoneb] 3 ml IH QID inhsol 03/17/18 [Rx] LORazepam [Ativan] 0.5 mg PO Q4HR PRN 4 Days #10 tablet 03/17/18 [Rx] OxyCODONE/APAP 10/325 [Percocet 10/325 MG] 1 each PO QID 4 Days #10 tablet 03/17 [Rx] Reqsixcjjknw-Oaly-Pkxfuymt,Iso [Zosyn 3.375 gm/50 ml Galaxy] 3.375 gm IV Q8HR # 18 froz.piggy 03/17/18 [Rx] Potassium Chloride 20 meq PO BIDWM tab.er.prt 03/17/18 [Rx] PredniSONE [Deltasone] 10 mg PO QAM #5 tablet 03/17/18 [Rx] Allergies/Adverse Reactions: 3 Allergy/AdvReac Type Severity Reaction Status Date / Time arthritis medication Allergy Rash Uncoded 03/10/18 09:30 Date of admission: 03/11/18 07:32 Primary care physician: Armando Root MD Consults: 03/12/18 16:56 Consult to Oncology [CONS] Routine Consulting Provider: [facility] Reason for Consult: Stage 4 left breast cancer; currently treated for PNA.. Time Notified: 16:45 Call Completed: Yes 03/13/18 13:26 Consult to Physical Therapy [CONS] Routine Comment: Evaluate, develop and implement POC Reason for Consult: PNA/DECONDITIONING Does patient have active BEDREST order?: No Is patient medically & hemodynamically stable?: Yes Patient assessed for mobility or mobilized this visit?: No 03/14/18 11:48 Consult to Invasive Line Access Team [CONS] Routine Reason for Consult: no iv access Line Type: EPIV 03/17/18 07:12 Consult to Science Liaison [CONS] Routine Reason for SW Consult: needs ecf Discharging clinician: Jamal Kerr Anticipated date of discharge: 03/17/18 - Constitutional Vitals: Temp Pulse Resp BP Pulse Ox 97.4 F L 85 18 120/75 98 03/17/18 16:52 03/17/18 16:52 03/17/18 16:52 03/17/18 16:52 03/17/18 16:52 General appearance: Present: A&O X 3, no acute distress, answers questions appropriately Exam: xx - Patient Status Disposition: Transfer SNF Functional capacity at discharge: independent ambulation (needs assistance..) - Discharge Instructions Follow Up With: Kelly Jennings MD [Partnered Physician] - (Will wait for Rosa diaz for the schedule....) Armando Root MD [Primary Care Provider] - 03/20/18 3:15 pm (Please follow up as schedule...) Forms: ED Satisfaction Letter Additional Instructions: OXYGEN AT 2-3 L/MIN; KEEP SAO2 AT 90-95%.. NEEDS PHYSICAL THERAPY.. - Diet and Activity Activity: as per physical therapy Diet: regular diet - VTE Deep Vein Thrombosis/Pulmonary Embolism Present on Admission: No
--- NOTE | 2018-03-17 18:33 | Physician Discharge Referral ---
ExtendedCare Referral Info Transfer To: [facility] Provider in Charge: Garret Kerr Provider in Charge after Transfer: Other (a SNF physician) Institutional Level of Care: Skilled - Diagnosis (1) HCAP (healthcare-associated pneumonia) Priority: Primary Status: Acute (2) COPD exacerbation Priority: Primary Status: Acute (3) Acute respiratory failure with hypoxia Priority: Primary Status: Resolved (4) Elevated troponin Priority: Primary Status: Acute (5) Metastatic breast cancer Priority: Primary Status: Chronic (6) Anemia Priority: Secondary Status: Chronic (7) Thrombocytopenia Priority: Secondary Status: Resolved (8) Debility Priority: Primary Status: Acute (9) Anxiety Priority: Primary Status: Chronic Prognosis: Fair Aware of Diagnosis: Family Aware of Prognosis: Family - Transfer Medications Prescriptions: LORazepam [Ativan] 0.5 mg PO Q4HR PRN 4 Days #10 tablet PRN Reason: Anxiety ALPRAZolam [Xanax 1 MG Tablet] 1 mg PO BID 5 Days #10 tablet FentaNYL PATCH [Duragesic] 50 mcg TD Q72H 30 Days #1 patch.td72 OxyCODONE/APAP 10/325 [Percocet 10/325 MG] 1 each PO QID 4 Days #10 tablet PredniSONE [Deltasone] 10 mg PO QAM #5 tablet Home Medications: Prochlorperazine Maleate [Compazine] 10 mg PO Q6H PRN #30 tablet 08/30/15 [Rx] Loperamide [Imodium] 2 mg PO TID PRN 09/21/16 [History] Exemestane [Aromasin] 25 mg PO DAILY #90 tablet 09/27/17 [Rx] Aspirin [Lo-Dose Aspirin EC] 81 mg PO DAILY 12/06/17 [History] Cholecalciferol (Vitamin D3) [Vitamin D3] 4,000 unit PO DAILY 12/06/17 [History] FLUoxetine HCl [Prozac] 20 mg PO DAILY 12/06/17 [History] Lovastatin 40 mg PO DAILY 12/06/17 [History] Everolimus [Afinitor] 10 mg PO DAILY #30 tablet 01/07/18 [Rx] Propranolol [Inderal] 20 mg PO DAILY #30 tablet 02/18/18 [Rx] FLUoxetine HCl [Fluoxetine HCl] 40 mg PO DAILY 03/10/18 [History] Folic Acid 1 mg PO DAILY 03/10/18 [History] Loratadine [Claritin] 10 mg PO DAILY PRN 03/10/18 [History] Omeprazole [PriLOSEC] 20 mg PO BID 03/10/18 [History] buPROPion HCl [Bupropion HCl Sr] 200 mg PO DAILY 03/10/18 [History] ALPRAZolam [Xanax 1 MG Tablet] 1 mg PO BID 5 Days #10 tablet 03/17/18 [Rx] Azithromycin [Zithromax] 500 mg PO Q24H 7 Days #7 tablet 03/17/18 [Rx] FentaNYL PATCH [Duragesic] 50 mcg TD Q72H 30 Days #1 patch.td72 03/17/18 [Rx] Heparin 5,000 unit SQ Q12HR vial 03/17/18 [Rx] Ipratropium/Albuterol Neb [Duoneb] 3 ml IH QID inhsol 03/17/18 [Rx] LORazepam [Ativan] 0.5 mg PO Q4HR PRN 4 Days #10 tablet 03/17/18 [Rx] OxyCODONE/APAP 10/325 [Percocet 10/325 MG] 1 each PO QID 4 Days #10 tablet 03/17 [Rx] Potassium Chloride 20 meq PO BIDWM tab.er.prt 03/17/18 [Rx] PredniSONE [Deltasone] 10 mg PO QAM #5 tablet 03/17/18 [Rx] Allergies/Adverse Reactions: 3 Allergy/AdvReac Type Severity Reaction Status Date / Time arthritis medication Allergy Rash Uncoded 03/10/18 09:30 - Respiratory Orders Oxygen / L per min (2-3 l/min; keep Sat at 90-95%) Smoking Cessation: Smoking cessation has been advised. For more information, call the [place] Tobacco Quit Line at 8-684-ZWTL-NOW. - Mobility Orders Ambulate (only with assistance..) - Rehabiliation Orders Rehab Potential: Fair - Diet Orders Regular CERTIFICATION: I certify that the transfer of the above named patient to an Extended Care Facility is necessary for the continuing treatment of the diagnosis listed. The above information is true and accurate reflection of patient's current condition. Confidential - Redisclosure prohibited without a patient's written consent.
[2018-03-18] MEDS: Ipratropium/Albuterol Neb 3 ML IH SCH (03:32)
--- NOTE | 2018-03-18 08:05 | Discharge Summary ---
Date of Encounter: 03/17/18 Time of Encounter: 19:00 - Discharge Diagnosis (1) HCAP (healthcare-associated pneumonia) Priority: Primary Status: Acute (2) COPD exacerbation Priority: Primary Status: Acute (3) Acute respiratory failure with hypoxia Priority: Primary Status: Resolved (4) Elevated troponin Priority: Primary Status: Acute (5) Metastatic breast cancer Priority: Primary Status: Chronic (6) Anemia Priority: Secondary Status: Chronic Qualifiers: Other causes of anemia: antineoplastic chemotherapy Qualified Code(s): D64.81 - Anemia due to antineoplastic chemotherapy; T45.1X5A - Adverse effect of antineoplastic and immunosuppressive drugs, initial encounter (7) Thrombocytopenia Priority: Secondary Status: Resolved (8) Debility Priority: Primary Status: Acute (9) Anxiety Priority: Primary Status: Chronic Hospital course: HOSPITAL COURSE: The patient is a 57-year-old woman. She has had stage IV left breast cancer and non-oxygen dependent COPD. The patient had increasing dyspnea in the last few days preceding this admission. Associated with confusion and incontinence with stool/urine in the last 24 hours. We found her to have pneumonia. She was put on IV vancomycin, IV Zosyn and IV Zithromax. We gave her IV Solu-Medrol and nebulizer treatments with DuoNeb. Her cancer related pain was treated with fentanyl patch and the when necessary Percocet tablets. Her confusion subsided in the past 24 hours after the admission. Her breathing returned to baseline after a few days of hospitalization. The patient kept complaining of weakness. She seems to have a lot of anxiety (related to her advanced cancer). We offered her physical therapy for ambulation. About 5 days before this discharge we stopped IV vancomycin and switched the her from IV Zithromax to oral Zithromax. We substituted IV Solu-Medrol with oral prednisone. CONDITION AT DISCHARGE: The patient is basically baseline. She complains of weakness. She is able to ambulate with assistance. She is on 2 L/min nasal cannula oxygen. However, her pulse ox on room any is at the low 90s. She does have mild cough but not wheezing. Her pain is under control. Skin: Free of rash and discoloration. Respiratory: Normal breath sounds with no crackles and wheezes bilaterally. CV: Heart is regular with no gallop or murmur. GI: Abdomen is flat and soft with no palpable mass or visceromegaly. Neuro exam: There is no focal deficits. Normal speech, swallowing and gait. SEE DISCHARGE ORDERS/MEDICATIONS.. The patient goes to [facility]. - Time Spent with Patient Total time spent providing and/or coordinating discharge services: - Discharge Medications Prescriptions: LORazepam [Ativan] 0.5 mg PO Q4HR PRN 4 Days #10 tablet PRN Reason: Anxiety Aqjjigdpxuji-Zmwq-Eybkkfkk,Iso [Zosyn 3.375 gm/50 ml Galaxy] 3.375 gm IV Q8HR # 18 froz.piggy ALPRAZolam [Xanax 1 MG Tablet] 1 mg PO BID 5 Days #10 tablet FentaNYL PATCH [Duragesic] 50 mcg TD Q72H 30 Days #1 patch.td72 OxyCODONE/APAP 10/325 [Percocet 10/325 MG] 1 each PO QID 4 Days #10 tablet PredniSONE [Deltasone] 10 mg PO QAM #5 tablet Home Medications: Prochlorperazine Maleate [Compazine] 10 mg PO Q6H PRN #30 tablet 08/30/15 [Rx] Loperamide [Imodium] 2 mg PO TID PRN 09/21/16 [History] Exemestane [Aromasin] 25 mg PO DAILY #90 tablet 09/27/17 [Rx] Aspirin [Lo-Dose Aspirin EC] 81 mg PO DAILY 12/06/17 [History] Cholecalciferol (Vitamin D3) [Vitamin D3] 4,000 unit PO DAILY 12/06/17 [History] FLUoxetine HCl [Prozac] 20 mg PO DAILY 12/06/17 [History] Lovastatin 40 mg PO DAILY 12/06/17 [History] Everolimus [Afinitor] 10 mg PO DAILY #30 tablet 01/07/18 [Rx] Propranolol [Inderal] 20 mg PO DAILY #30 tablet 02/18/18 [Rx] FLUoxetine HCl [Fluoxetine HCl] 40 mg PO DAILY 03/10/18 [History] Folic Acid 1 mg PO DAILY 03/10/18 [History] Loratadine [Claritin] 10 mg PO DAILY PRN 03/10/18 [History] Omeprazole [PriLOSEC] 20 mg PO BID 03/10/18 [History] buPROPion HCl [Bupropion HCl Sr] 200 mg PO DAILY 03/10/18 [History] ALPRAZolam [Xanax 1 MG Tablet] 1 mg PO BID 5 Days #10 tablet 03/17/18 [Rx] Azithromycin [Zithromax] 500 mg PO Q24H 7 Days #7 tablet 03/17/18 [Rx] FentaNYL PATCH [Duragesic] 50 mcg TD Q72H 30 Days #1 patch.td72 03/17/18 [Rx] Heparin 5,000 unit SQ Q12HR vial 03/17/18 [Rx] Ipratropium/Albuterol Neb [Duoneb] 3 ml IH QID inhsol 03/17/18 [Rx] LORazepam [Ativan] 0.5 mg PO Q4HR PRN 4 Days #10 tablet 03/17/18 [Rx] OxyCODONE/APAP 10325 [Percocet 10/325 MG] 1 each PO QID 4 Days #10 tablet 03/17 [Rx] Dbeifezlqmqk-Aojv-Qmjxxtnu,Iso [Zosyn 3.375 gm/50 ml Galaxy] 3.375 gm IV Q8HR # 18 froz.piggy 03/17/18 [Rx] Potassium Chloride 20 meq PO BIDWM tab.er.prt 03/17/18 [Rx] PredniSONE [Deltasone] 10 mg PO QAM #5 tablet 03/17/18 [Rx] Allergies/Adverse Reactions: 3 Allergy/AdvReac Type Severity Reaction Status Date / Time arthritis medication Allergy Rash Uncoded 03/10/18 09:30 Date of admission: 03/11/18 07:32 Primary care physician: Armando Root MD Consults: 03/12/18 16:56 Consult to Oncology [CONS] Routine Consulting Provider: [facility] Reason for Consult: Stage 4 left breast cancer; currently treated for PNA.. Time Notified: 16:45 Call Completed: Yes 03/13/18 13:26 Consult to Physical Therapy [CONS] Routine Comment: Evaluate, develop and implement POC Reason for Consult: PNA/DECONDITIONING Does patient have active BEDREST order?: No Is patient medically & hemodynamically stable?: Yes Patient assessed for mobility or mobilized this visit?: No 03/14/18 11:48 Consult to Invasive Line Access Team [CONS] Routine Reason for Consult: no iv access Line Type: EPIV 03/17/18 07:12 Consult to It Solutions Architect [CONS] Routine Reason for SW Consult: needs ecf - Constitutional Vitals: Temp Pulse Resp BP Pulse Ox 97.4 F L 85 18 120/75 98 03/17/18 16:52 03/17/18 16:52 03/17/18 16:52 03/17/18 16:52 03/17/18 16:52 General appearance: Present: A&O X 3, no acute distress, answers questions appropriately Exam: xx - Patient Status Disposition: Transfer SNF - Discharge Instructions Follow Up With: Kelly Jennings MD [Partnered Physician] - (Will wait for Rosa diaz for the schedule....) Armando Root MD [Primary Care Provider] - 03/20/18 3:15 pm (Please follow up as schedule...) Forms: ED Satisfaction Letter Additional Instructions: OXYGEN AT 2-3 L/MIN; KEEP SAO2 AT 90-95%.. NEEDS PHYSICAL THERAPY.. - VTE Deep Vein Thrombosis/Pulmonary Embolism Present on Admission: No
== END 2018-03-17 19:30 | DRG 871 ==
LOC: 2ANU 06:56 → EMEROOARM 06:56 → SUATTDRO 09:48 → 2ANU 10:19
PROVIDERS: ADMIT Internal Medicine; ATTEND Internal Medicine

== ENCOUNTER 2018-03-20 14:05 | Inpatient (IN) ==
--- NOTE | 2018-03-20 14:52 | Emergency Department Note ---
Disposition Clinical Impression: Leukocytosis Qualifiers: Leukocytosis type: unspecified Qualified Code(s): D72.829 - Elevated white blood cell count, unspecified Pneumonia Qualifiers: Pneumonia type: due to unspecified organism Laterality: unspecified laterality Lung location: unspecified part of lung Qualified Code(s): J18.9 - Pneumonia, unspecified organism Cellulitis Qualifiers: Site of cellulitis: extremity Site of cellulitis of extremity: upper extremity Laterality: left Qualified Code(s): L03.114 - Cellulitis of left upper limb Disposition: Admitted As Inpatient Condition: Fair General Adult HPI - General Chief complaint: ED Altered Mental Status Stated complaint: AMS Source: patient, EMS Limitations: no limitations Nursing Notes Reviewed: Yes Vital Signs Reviewed: Yes - History of Present Illness HPI Narrative: I did see the patient immediately upon arrival and also spoke with the paramedics and the patient presented with altered level of consciousness, she was recently discharged with the diagnosis of pneumonia and is currently being treated with Zosyn and Zithromax and the patient is not able to give an adequate history secondary to her medical condition of altered consciousness. No family was with the patient when I saw her initially. She denies any fever, vomiting or pain but this history is limited by her medical condition. Social history: Extended care facility Pain Scale: 0 - Related Data Home Medications Medication Instructions Recorded Confirmed Loperamide [Imodium] 2 mg PO TID PRN 09/21/16 03/10/18 Aspirin [Lo-Dose Aspirin EC] 81 mg PO DAILY 12/06/17 03/10/18 Cholecalciferol (Vitamin D3) 4,000 unit PO DAILY 12/06/17 03/10/18 [Vitamin D3] FLUoxetine HCl [Prozac] 20 mg PO DAILY 12/06/17 03/10/18 Lovastatin 40 mg PO DAILY 12/06/17 03/10/18 FLUoxetine HCl [Fluoxetine HCl] 40 mg PO DAILY 03/10/18 03/10/18 Folic Acid 1 mg PO DAILY 03/10/18 03/10/18 Loratadine [Claritin] 10 mg PO DAILY PRN 03/10/18 03/10/18 Omeprazole [PriLOSEC] 20 mg PO BID 03/10/18 03/10/18 buPROPion HCl [Bupropion HCl Sr] 200 mg PO DAILY 03/10/18 03/10/18 Previous Rx's Medication Instructions Recorded Prochlorperazine Maleate 10 mg PO Q6H PRN #30 tablet 08/30/15 [Compazine] Exemestane [Aromasin] 25 mg PO DAILY #90 tablet 09/27/17 Everolimus [Afinitor] 10 mg PO DAILY #30 tablet 01/07/18 Propranolol [Inderal] 20 mg PO DAILY #30 tablet 02/18/18 ALPRAZolam [Xanax 1 MG Tablet] 1 mg PO BID 5 Days #10 tablet 03/17/18 Azithromycin [Zithromax] 500 mg PO Q24H 7 Days #7 tablet 03/17/18 FentaNYL PATCH [Duragesic] 50 mcg TD Q72H 30 Days #1 03/17/18 patch.td72 Heparin 5,000 unit SQ Q12HR vial 03/17/18 Ipratropium/Albuterol Neb [Duoneb] 3 ml IH QID inhsol 03/17/18 LORazepam [Ativan] 0.5 mg PO Q4HR PRN 4 Days #10 03/17/18 tablet OxyCODONE/APAP 10/325 [Percocet 1 each PO QID 4 Days #10 tablet 03/17/18 10/325 MG] Cvdqlzeduxtu-Xkje-Xosydyvk,Iso 3.375 gm IV Q8HR #18 froz.piggy 03/17/18 [Zosyn 3.375 gm/50 ml Galaxy] Potassium Chloride 20 meq PO BIDWM tab.er.prt 03/17/18 PredniSONE [Deltasone] 10 mg PO QAM #5 tablet 03/17/18 Allergies Allergy/AdvReac Type Severity Reaction Status Date / Time arthritis medication Allergy Rash Uncoded 03/10/18 09:30 Limitations: ROS unobtainable due to patients medical condition Past Medical History - Past Medical History Medical history: Reports: arthritis, cancer, COPD, CVA, fibromyalgia, GERD, hyperlipidemia, hypertension, renal disease, other Surgical history: Reports: LILIANE/BSO, other Psychiatric history: Reports: no psych history HOME HEALTH SCHEDULER history: Reports: no HOME HEALTH SCHEDULER history - Social History Smoking Status: Current every day smoker Smokeless Tobacco Status: No Alcohol use: Reports: none Drug use: Reports: none Physical Exam CONSTITUTIONAL: She is alert, was not able to tell me the year, she does not know why she is here, color is pink, breathing comfortably HEAD: Normocephalic; atraumatic. EYES: PERRL, no scleral icterus. NOSE: The nose is normal in appearance without rhinorrhea RESP: Normal chest excursion with respiration; breath sounds clear and equal bilaterally; no wheezes, rhonchi, or rales CARD: Regular rhythm, without murmurs, rub or gallop ABD: Non-distended; non-tender, soft,without rigidity, rebound or guarding SKIN: Normal for age and race; warm and dry; no apparent lesions EXTREMITIES: Pulses are 2 plus and equal times 4 extremities, no peripheral edema or calf muscle pain. - General Limitations: no limitations General appearance: alert Course Vital Signs Temperature 98.7 F 03/20/18 14:10 Pulse Rate 67 03/20/18 14:10 Respiratory Rate 22 03/20/18 14:10 Blood Pressure 109/54 03/20/18 14:10 O2 Sat by Pulse Oximetry 100 03/20/18 14:10 Temperature 98.7 F 03/20/18 14:10 Pulse Rate 71 03/20/18 15:37 Respiratory Rate 22 03/20/18 14:10 Blood Pressure 124/68 03/20/18 15:37 O2 Sat by Pulse Oximetry 99 03/20/18 15:37 Oxygen Delivery Oxygen Delivery Room Air Medical Decision Making - MDM Narrative Medical decision making narrative: Patient does have leukocytosis which is increased from 16,000 up to 22,000 and for that reason she does have labs pending to confirm this as well as to get a blood culture and lactate level and disposition is pending these test results. The patient does have an oxygen saturation of 99% on 2 L nasal cannula which is baseline nasal cannula oxygen for her. I did review her EKG which shows normal sinus rhythm with a rate of 66 without acute ischemic change and I did compared to previous EKG from March 10 of this year 1452 I did review the patient's test results showing significant leukocytosis, anemia which is minimally decreased compared to past, did speak with the family and they would like the patient to be DNRarrest and admitted to the hospital and try advanced antibiotics and if this is unsuccessful like to take the patient home to use hospice care at home. I did speak with the hospitalist who accepts the patient for admission to be started on cefepime and vancomycin. Pneumonia is one possibility for the leukocytosis as well the left arm with the swelling, erythema and warmth and cellulitis as an etiology could be another possibility and the family says this is new. Doppler of the left upper extremity and right lower extremity are both negative for clot 1628 - Medical Records Medical records reviewed: Yes I reviewed the patient's medical records. - Lab Data Lab results reviewed: Yes I reviewed the patient's lab results. Result diagrams: 03/20/18 14:51 03/20/18 14:51 Lab Results 03/20/18 03/20/18 03/20/18 Range/Units 14:51 14:51 14:51 WBC 28.6 H D (4.3-11.1) K/mcL RBC 2.78 L (3.82-4.97) M/mcL Hgb 7.5 L (11.5-15.4) g/dL Hct 24.7 L (35.3-44.9) % MCV 88.8 (83.0-100.0) fL MCH 27.0 L (28.0-33.3) pg MCHC 30.4 L (31.6-35.5) g/dL RDW 17.1 H (11.5-14.5) % Plt Count 212 (140-400) K/mcL MPV 12.5 H (9.4-12.4) fL Sodium 133 L (136-145) mEq/L Potassium 4.4 (3.5-5.1) mEq/L Chloride 99 (98-107) mEq/L Carbon Dioxide 24 (23-29) mEq/L BUN 14 (6-20) mg/dL Creatinine 1.35 H (0.60-1.20) mg/dL Est GFR ( Amer) 49 L (> 60) Est GFR (Non-Af Amer) 40 L (> 60) BUN/Creatinine Ratio 10 (6-26) Glucose 170 H (70-105) mg/dL Calculated Osmolality 280 (280-300) Lactic Acid (0.5-2.2) mmol/L Calcium 7.6 L (8.6-10.3) mg/dL Total Bilirubin 0.5 (0.3-1.0) mg/dL Direct Bilirubin 0.3 H (0.0-0.2) mg/dL Indirect Bilirubin 0.2 (0.0-1.2) mg/dL AST 14 (13-39) Units/L ALT 15 (7-52) Units/L Alkaline Phosphatase 126 H (34-104) Units/L Serum Total Protein 5.4 L (6.4-8.9) g/dL Albumin 2.7 L (3.5-5.7) g/dL Globulin 2.7 (2.4-3.5) g/dL Albumin/Globulin Ratio 1.0 L (1.1-2.2) 03/20/18 Range/Units 14:51 WBC (4.3-11.1) K/mcL RBC (3.82-4.97) M/mcL Hgb (11.5-15.4) g/dL Hct (35.3-44.9) % MCV (83.0-100.0) fL MCH (28.0-33.3) pg MCHC (31.6-35.5) g/dL RDW (11.5-14.5) % Plt Count (140-400) K/mcL MPV (9.4-12.4) fL Sodium (136-145) mEq/L Potassium (3.5-5.1) mEq/L Chloride (98-107) mEq/L Carbon Dioxide (23-29) mEq/L BUN (6-20) mg/dL Creatinine (0.60-1.20) mg/dL Est GFR ( Amer) (> 60) Est GFR (Non-Af Amer) (> 60) BUN/Creatinine Ratio (6-26) Glucose (70-105) mg/dL Calculated Osmolality (280-300) Lactic Acid 1.8 (0.5-2.2) mmol/L Calcium (8.6-10.3) mg/dL Total Bilirubin (0.3-1.0) mg/dL Direct Bilirubin (0.0-0.2) mg/dL Indirect Bilirubin (0.0-1.2) mg/dL AST (13-39) Units/L ALT (7-52) Units/L Alkaline Phosphatase (34-104) Units/L Serum Total Protein (6.4-8.9) g/dL Albumin (3.5-5.7) g/dL Globulin (2.4-3.5) g/dL Albumin/Globulin Ratio (1.1-2.2) - Radiology Data Radiology results reviewed: Yes I reviewed the patient's radiology results.
[2018-03-20 15:07] LABS: Hematocrit 24.7 % (35.3-44.9); Hemoglobin 7.5 g/dL (11.5-15.4); Mean Corpuscular HGB Conc 30.4 g/dL (31.6-35.5); Mean Corpuscular Volume 88.8 fL (83.0-100.0); Mean Platelet Volume 12.5 fL (9.4-12.4); Platelet Count 212 K/mcL (140-400); Red Blood Count 2.78 M/mcL (3.82-4.97); Red Cell Distribution Width 17.1 % (11.5-14.5)
[2018-03-20 15:22] LABS: Calcium 7.6 mg/dL (8.6-10.3); Potassium 4.4 mEq/L (3.5-5.1)
[2018-03-20 15:23] LABS: Albumin 2.7 g/dL (3.5-5.7); Bilirubin,Direct 0.3 mg/dL (0.0-0.2); Bilirubin,Indirect 0.2 mg/dL (0.0-1.2); Bilirubin,Total 0.5 mg/dL (0.3-1.0); Globulin 2.7 g/dL (2.4-3.5); Total Protein 5.4 g/dL (6.4-8.9)
[2018-03-20] MEDS ORDERED: Cefepime HCl 2,000 MG in Water for inj. (sterile) 20 ML 20 ML IVPB STA (16:29)
--- NOTE | 2018-03-20 20:44 | Internal Med History&Physical ---
Date of Encounter: 03/20/18 Time of Encounter: 20:44 Internal Medicine - H&P: HPI Chief complaint: Shortness of breath Admitted From: Home Plans for Post Hospital Care: Home History of present illness: Ms. Trejo is a 57 year old female with hx of stage IV left breast CA, non- oxygen dependent COPD, Pt resides at a [facility]. SHe was recently discharged following management for HCAP was on Vancomycin but discharged on Zithromax. Pt speech is slowed and she is an overall poor historian Pt returns with worsening SOB and elevated white count. In ED BP 131/70, HR 66, temp 98.6, RR 16. WBC 28.6, hgb 7.5, hct 24.7, plt 212. Na 133, BUN 14, Cr 1.35. AST 14, ALT 15, Alk phos 126. Chest x ray XR/XR chest 1V portable IMPRESSION: Mild streaky left basilar opacity may relate to atelectasis or developing infiltrate. CODE STATUS: FULL Past Med Surg Social Fam HX - Past Medical History Medical history: arthritis, cancer, COPD, CVA, fibromyalgia, GERD, hyperlipidemia, hypertension, renal disease, other Additional medical history: no deficits from previous strokes Psychiatric history: no psych history - Past Surgical History Surgical History: LILIANE/BSO, other Additional surgical history: exploratory abdominal surgery, port - Social History Smoking Status: Current every day smoker Smokeless Tobacco Status: No Alcohol use: none Drug use: none - Family History Mother Living Status: Hx Family Cardiac Disorders: Yes (HLD) Hx Family Endocrine Disorder: Yes (DM) Internal Medicine - H&P: Meds Prochlorperazine Maleate [Compazine] 10 mg PO Q6H PRN #30 tablet 08/30/15 [Rx] Loperamide [Imodium] 2 mg PO TID PRN 09/21/16 [History] Aspirin [Lo-Dose Aspirin EC] 81 mg PO DAILY 12/06/17 [History] Cholecalciferol (Vitamin D3) [Vitamin D3] 4,000 unit PO DAILY 12/06/17 [History] FLUoxetine HCl [Prozac] 20 mg PO DAILY 12/06/17 [History] Lovastatin 40 mg PO DAILY 12/06/17 [History] Propranolol [Inderal] 20 mg PO DAILY #30 tablet 02/18/18 [Rx] FLUoxetine HCl [Fluoxetine HCl] 40 mg PO DAILY 03/10/18 [History] Folic Acid 1 mg PO DAILY 03/10/18 [History] Loratadine [Claritin] 10 mg PO DAILY PRN 03/10/18 [History] Omeprazole [PriLOSEC] 20 mg PO BID 03/10/18 [History] ALPRAZolam [Xanax 1 MG Tablet] 1 mg PO BID 5 Days #10 tablet 03/17/18 [Rx] FentaNYL PATCH [Duragesic] 50 mcg TD Q72H 30 Days #1 patch.td72 03/17/18 [Rx] Ipratropium/Albuterol Neb [Duoneb] 3 ml IH QID inhsol 03/17/18 [Rx] LORazepam [Ativan] 0.5 mg PO Q4HR PRN 4 Days #10 tablet 03/17/18 [Rx] Lnenhqpnoyuh-Szmb-Stsryvha,Iso [Zosyn 3.375 gm/50 ml Galaxy] 3.375 gm IV Q8HR #18 froz.piggy 03/17/18 [Rx] Potassium Chloride 20 meq PO BIDWM tab.er.prt 03/17/18 [Rx] PredniSONE [Deltasone] 10 mg PO QAM #5 tablet 03/17/18 [Rx] Azithromycin [Zithromax Tri-Sebastian] 500 mg PO DAILY 03/20/18 [History] BuPROPion [Wellbutrin] 200 mg PO DAILY 03/20/18 [History] Heparin 5,000 unit SQ Q12HR 03/20/18 [History] OxyCODONE/APAP 10/325 [Percocet 10/325 MG] 1 tab PO QID 03/20/18 [History] Allergy/AdvReac Type Severity Reaction Status Date / Time arthritis medication Allergy Rash Uncoded 03/10/18 09:30 All Systems PM: A 10-system review of systems was performed and is negative for pertinent findings except as documented above in the HPI. - Constitutional Vitals: Temp Pulse Resp BP Pulse Ox 98.6 F 66 16 131/70 94 03/20/18 18:29 10 18:29 03/20/18 18:29 03/20/18 18:29 03/20/18 18:29 General appearance: Present: A&O X 3, no acute distress Exam: . - Head Head exam: Present: atraumatic, normocephalic - Eye Eye exam: Present: PERRL, conjuntiva pink, sclera anicteric Pupils: Present: PERRL - Neck Neck exam general surgery: Present: supple, trachea midline. Absent: lymphadenopathy - Respiratory Respiratory exam: Absent: accessory muscle use, CTAB, rales, rhonchi, wheezes Additional comments: crackles B/L bases - Cardiovascular Cardiovascular exam: Present: RRR, +S1, +S2, systolic murmur. Absent: diastolic murmur, gallop, rubs - GI/Abdominal GI/Abdominal exam: Present: normal bowel sounds, soft, no peritoneal signs. Absent: distended, tenderness - Extremities Exam Extremities exam: Present: pedal edema, warm, radial pulses palpable and symmet rical. Absent: calf tenderness, cyanotic - Neurological Exam Neurological exam: Present: CN II-XII intact, oriented X3, no focal deficits. Absent: pronater drift, facial droop, speech deficit - Skin Skin exam: Present: dry, intact Internal Med - H&P Results - Labs CBC & Chem 7: 03/20/18 14:51 03/20/18 14:51 Labs: Short CBC 03/20/18 Range/Units 14:51 WBC 28.6 H D (4.3-11.1) K/mcL Hgb 7.5 L (11.5-15.4) g/dL Hct 24.7 L (35.3-44.9) % Plt Count 212 (140-400) K/mcL BMP 03/20/18 14:51 Sodium 133 L Potassium 4.4 Chloride 99 Carbon Dioxide 24 BUN 14 Creatinine 1.35 H Glucose 170 H Calcium 7.6 L Liver Function 03/20/18 Range/Units 14:51 Total Bilirubin 0.5 (0.3-1.0) mg/dL Direct Bilirubin 0.3 H (0.0-0.2) mg/dL AST 14 (13-39) Units/L ALT 15 (7-52) Units/L Alkaline Phosphatase 126 H (34-104) Units/L Albumin 2.7 L (3.5-5.7) g/dL - Impressions ITS Impressions Chest X-Ray 03/20/18 14:30 IMPRESSION: Mild streaky left basilar opacity may relate to atelectasis or developing infiltrate. D/ : / 03/20/2018 15:34:23 Iban Bhandari MD / [email or web address] Interpreting Provider: Iban Bhandari MD - Assessment and plan (1) HCAP (healthcare-associated pneumonia) Current Visit: No Status: Acute Assessment and plan: Will place pt back on Vancomycin, Zosyn , and Levaquin for now. Will order sputum culture. Blood cultures ordered in ED. Will order sputum culture. Will consult speech therapist. (2) COPD (chronic obstructive pulmonary disease) Current Visit: Yes Status: Acute Assessment and plan: Will resume her NH nebs, and resp regimen for now. Will monitor closely. Qualifiers: Qualified Code(s): J44.9 - Chronic obstructive pulmonary disease, unspecified (3) Chronic kidney disease (CKD) Current Visit: No Status: Acute Assessment and plan: Will monitor renal function Qualifiers: Chronic kidney disease stage: stage 3 (moderate) Qualified Code(s): N18.3 - Chronic kidney disease, stage 3 (moderate) (4) Metastatic breast cancer Current Visit: No Status: Chronic (5) Leukocytosis Current Visit: Yes Status: Acute Assessment and plan: Blood cultures ordered. Will check urine culture Qualifiers: Leukocytosis type: unspecified Qualified Code(s): D72.829 - Elevated white blood cell count, unspecified (6) Breast cancer, left Current Visit: No Status: Chronic Assessment and plan: Pt does have LUE lymphedema from breast CA. Qualifiers: Breast location: unspecified site of breast Estrogen receptor status: unspecified Patient sex: female Qualified Code(s): C50.912 - Malignant neoplasm of unspecified site of left female breast - Time Spent With Patient Total time spent is greater than 50% in coordination of care (as documented) at patient's floor/unit and/or counseling patient: 25 - 35 minutes
[2018-03-20] MEDS ORDERED: Naloxone 0.4 MG/ML INJ IVP PRN (21:49)
[2018-03-20] MEDS ORDERED: *HR* LORazepam 0.5 MG TABLET PO PRN (22:02)
[2018-03-20] MEDS ORDERED: Loratadine 10 MG TABLET PO PRN (22:02)
[2018-03-20] MEDS: Piperacillin/Tazobactam 3.375 GM in 0.9 % Sodium Chloride Mini Bag 100 ML IVPB SCH (23:52)
[2018-03-21] MEDS ORDERED: NON-FORMULARY MEDICATION 1 EACH EACH (Piperacillin-Tazo-Dextrose,Iso [Zosyn 3.375 Gm/50 Ml IV SCH
[2018-03-21] MEDS: Acetaminophen 325 MG TABLET PO PRN (03:39)
[2018-03-21 04:00] LABS: Lymphocytes % 1.9 %; Mean Corpuscular Hemoglobin 26.9 pg (28.0-33.3); Nucleated Red Blood Cells 0.2 /100 WBC (0)
[2018-03-21 04:02] LABS: Basophils % 0.1 %; Eosinophils # 0.1 K/mcL (0.0-0.6); Eosinophils % 0.3 %; Hematocrit 27.1 % (35.3-44.9); Hemoglobin 8.1 g/dL (11.5-15.4); Immature Granulocytes % 2.6 % (0-4); Lymphocytes # 0.5 K/mcL (0.6-4.6); Mean Corpuscular HGB Conc 29.9 g/dL (31.6-35.5); Monocytes # 1.1 K/mcL (0.0-1.3); Monocytes % 4.3 %; Neutrophils # 23.3 K/mcL (1.6-8.9); Platelet Count 235 K/mcL (140-400); Red Blood Count 3.01 M/mcL (3.82-4.97); Segmented Neutrophils % 90.8 %
[2018-03-21 04:21] LABS: Calcium 8.3 mg/dL (8.6-10.3)
[2018-03-21] MEDS: *HR* Heparin 5,000 UNIT/ML VIAL SQ SCH ×2 (05:28→17:14)
[2018-03-21] MEDS: Levofloxacin 750 MG/150 ML 750 MG/150 ML BAG IVPB SCH (05:29)
[2018-03-21 06:00] LABS: Anisocytosis 1+ (Not Present); Large Platelets Present (Not Present); Macrocytosis Present (Not Present); Platelet Estimate Normal (Normal); Polychromasia 2+ (Not Present)
[2018-03-21] MEDS: Piperacillin/Tazobactam 3.375 GM in 0.9 % Sodium Chloride Mini Bag 100 ML IVPB SCH ×3 (08:20→23:45)
[2018-03-21] MEDS ORDERED: Levofloxacin 750 MG/150 ML 750 MG/150 ML BAG IVPB SCH (09:00)
[2018-03-21] MEDS ORDERED: FLUoxetine 20 MG CAPSULE PO SCH (09:00)
[2018-03-21] MEDS: *HR* FentaNYL PATCH 50 MCG PATCH TD SCH (10:24)
[2018-03-21] MEDS: Ipratropium/Albuterol Neb 3 ML IH SCH ×4 (10:28→22:49)
[2018-03-21] MEDS: ALPRAZolam 1 MG TABLET PO SCH ×2 (10:52→20:47)
[2018-03-21] MEDS: *HR* OxyCODONE/APAP 10/325 TABLET PO SCH ×4 (10:53→20:47)
[2018-03-21] MEDS: predniSONE 10 MG TABLET PO SCH (10:53)
[2018-03-21] MEDS: FLUoxetine 20 MG CAPSULE PO SCH (10:56)
[2018-03-21] MEDS: Aspirin Enteric Coated 81 MG Tablet PO SCH (10:58)
[2018-03-21] MEDS: Folic Acid 1 MG TABLET PO SCH (10:58)
[2018-03-21] MEDS: Cholecalciferol (D-3) 1,000 UNIT TABLET PO SCH (10:58)
--- NOTE | 2018-03-21 16:08 | Palliative - Consult Note ---
Date of Encounter: 03/21/18 Time of Encounter: 15:30 - Assessment and Plan (1) Leukocytosis Current Visit: Yes Status: Acute Assessment and plan: WBC 25.7, improving; management per primary team. Family desires to continue IV antibiotics at this time. Qualifiers: Leukocytosis type: unspecified Qualified Code(s): D72.829 - Elevated white blood cell count, unspecified (2) Anxiety Current Visit: No Status: Chronic Assessment and plan: Patient denies during assessment. Has Xanax and Ativan ordered. (3) Breast cancer, left Current Visit: No Status: Chronic Assessment and plan: Patient is a patient of Dr. Jennings. Has received oral chemo; however, has been off times 2 weeks. Family desires to stop treatment. Qualifiers: Breast location: unspecified site of breast Estrogen receptor status: unspecified Patient sex: female Qualified Code(s): C50.912 - Malignant elizabet plasm of unspecified site of left female breast (4) Metastatic breast cancer Current Visit: No Status: Chronic (5) Advanced directives, counseling/discussion Current Visit: No Status: Acute Assessment and plan: Discussed goals of care with family. Family desires for patient to go to [facility] with [facility] hosp[facility] placement. Previously at [place] and desires to not return there; also does not want [facility]. Patient's daughters (Carmel[place] Hernández [facility] [place] [phone] and Mayra Ortega [phone]) present for discussion. CODE STATUS changed to DNRCC per family request. Plan to discharge Saturday or Saturday post IV antibiotics. Understand will not continue Chemotherapy. Medicare and Medicaid in place. (6) Cancer related pain Current Visit: No Status: Acute Assessment and plan: Patient denies pain during assessment. Has Fentanyl and Percocet ordered for pain control, reports stable. Palliative-CN HPI - Data of Consult Patient: new to practice Consult date: 03/21/18 Requesting Physician: Royal Resendez MD Primary Care Provider: Armando Root MD - Consult Narrative Palliative Care/Comfort Measures: Palliative care Reason for consult: Home care needs History of present illness: Ms. Trejo is a 57 year old female Arrived to [place] [facility] for altered mental status. Admitted for leukocytosis. PMH: Stage 4 breast cancer, arthritis, COPD, CVA, fibromyalgia, GERD, hyperlipidemia, hypertension, and renal disease. Patient recently admitted and discharged for pneumonia. Chest x-ray performed showing: Mild streaky left basilar opacity may relate to atelectasis or develo ping infiltrate. Venous studies completed WNL. Palliative care consult for going home needs. Patient has been residing in [place] and family desires for patient to not return there. Patient awake, alert upon arrival for assessment. Patient's daughter, sister, and brother at bedside. Patient denies pain, anxiety, shortness of breath, nausea, and vomiting on assessment. Patient has daughter designated as Carmelina GARCIA. CC: Royal Resendez MD - Time Spent with Patient Time: Total time spent is greater than 50% in coordination of care (as documented) at patient's floor/unit and/or counseling patient: 25 - 35 minutes Past Med Surg Social Fam HX - Past Medical History Medical history: arthritis, cancer, COPD, CVA, fibromyalgia, GERD, hyperlipidemia, hypertension, renal disease, other Additional medical history: no deficits from previous strokes Psychiatric history: no psych history - Past Surgical History Surgical History: LILIANE/BSO, other Additional surgical history: exploratory abdominal surgery, port - Social History Smoking Status: Current every day smoker Smokeless Tobacco Status: No Alcohol use: none Drug use: none - Family History Mother Living Status: Hx Family Cardiac Disorders: Yes (HLD) Hx Family Endocrine Disorder: Yes (DM) Medications and Allergies Prochlorperazine Maleate [Compazine] 10 mg PO Q6H PRN #30 tablet 08/30/15 [Rx] Loperamide [Imodium] 2 mg PO TID PRN 09/21/16 [History] Propranolol [Inderal] 20 mg PO DAILY #30 tablet 02/18/18 [Rx] Allergy/AdvReac Type Severity Reaction Status Date / Time arthritis medication Allergy Rash Uncoded 03/10/18 09:30 - Constitutional Constitutional ROS PAL: malaise - Cardiovascular Cardiovascular ROS: pedal edema, no chest pain, no dyspnea on exertion - Respiratory Respiratory: no dyspnea - Gastrointestinal Gastrointestinal: no change in stool character - Genitourinary Palliative ROS female: breast mass - Neurological Neurological ROS: no behavioral changes - Psychiatric Psychiatric general PM: anxiety Palliative Care-Exam - Constitutional Vitals: Temp Pulse Resp BP Pulse Ox 97.3 F L 61 15 121/64 98 03/21/18 15:37 03/21/18 15:37 03/21/18 15:37 03/21/18 15:37 03/21/18 15:37 General appearance: Present: cooperative, no acute distress - Head Head Exam: Present: normal inspection - Eye Eye exam: Present: EOMI, normal appearance, PERRL, conjuntiva pink. Absent: periorbital swelling, periorbital tenderness Pupils: Present: normal accommodation, PERRL - ENT ENT exam: Present: mucous membranes dry - Expanded ENT Exam Mouth Exam: Absent: drooling - Neck Neck exam: Present: full ROM, normal inspection. Absent: tenderness - Respiratory Respiratory exam: Present: CTAB. Absent: accessory muscle use, chest wall tenderness - Cardiovascular Cardiovascular exam: Present: +S1, +S2 - Expanded Cardiovascular Exam Peripheral pulses: 1+: Posterior Tibialis (L), Posterior Tibialis (R), Dorsalis Pedis (L) PM, Dorsalis Pedis (R) PM, 2+: Radial (L), Radial (R) - GI/Abdominal Exam GI/Abdominal exam: Present: diminished bowel sounds, soft. Absent: tenderness - Rectal Rectal exam: Present: deferred - Extremities Exam Extremities exam: Present: pedal edema. Absent: calf tenderness - Neurological Exam Neurological exam: Present: alert - Expanded Neurological Exam Coma Scale Eye Opening: To Voice Coma Scale Motor Response: Obeys Commands Coma Scale Verbal Response: Confused Coma Scale Total: 13 - Psychiatric Psychiatric exam: Present: flat affect Internal Medicine - CN: Reslt - Labs CBC & Chem 7: 03/21/18 03:51 03/21/18 03:51 Labs: Short CBC 03/21/18 Range/Units 03:51 WBC 25.7 H (4.3-11.1) K/mcL Hgb 8.1 L (11.5-15.4) g/dL Hct 27.1 L (35.3-44.9) % Plt Count 235 (140-400) K/mcL Neutrophils # 23.3 H (1.6-8.9) K/mcL BMP 03/21/18 03:51 Sodium 135 L Potassium 4.0 Chloride 100 Carbon Dioxide 25 BUN 15 Creatinine 1.33 H Glucose 120 H Calcium 8.3 L - Impressions Impressions Chest X-Ray 03/20/18 14:30 IMPRESSION: Mild streaky left basilar opacity may relate to atelectasis or developing infiltrate. D/ /20/2018 15:34:23 Iban Bhandari MD / leela Interpreting Provider: Iban Bhandari MD Consult Discharge Plan - Plan Referrals: Armando Root MD [Primary Care Provider] - Palliative Quality Palliative Quality: Screen for Code Status: Yes, Screen for Goals of Care: Yes, Screen for Pain: Yes, If Pain Regimen Started, Initiate Bowel Regimen: NA, Screen for Nausea/Vomitting: Yes Code Status: 03/20/18 21:49 Resuscitation Status: Active [RES] Routine Comment: Resuscitation Status: Full Code 03/21/18 16:04 DNR [Resuscitation Status: Active] [RES] Routine Comment: State form completed. Resuscitation Status: DNR-Comfort Care
--- NOTE | 2018-03-21 18:13 | Internal Med Progress Note ---
Hospitalist Progress Note - Encounter Date of Encounter: 03/21/18 Time of Encounter: 18:10 - Subjective Interval History: Pt's affect appears flat. Daughter at bedside states she can here but pt is not wanting to communicate. Family requesting palliative/hospice care services. - Exam Vitals: Temp Pulse Resp BP Pulse Ox 97.3 F L 61 16 121/64 100 03/21/18 15:37 03/21/18 15:37 03/21/18 17:03 03/21/18 15:37 03/21/18 17:03 Exam: . - Assessment and Plan (1) HCAP (healthcare-associated pneumonia) Current Visit: No Status: Acute Assessment and Plan: On Vancomycin, Zosyn , and Levaquin for now. Order sputum culture but pt unable to provide a sample. Blood cultures ordered in ED. Seen by speech therapist and recommendations ordered. (2) COPD (chronic obstructive pulmonary disease) Current Visit: No Status: Acute (3) Metastatic breast cancer Current Visit: No Status: Chronic Assessment and Plan: Pt has undergone multiple chemo and radiation. Daughter at bedside today and requesting to talk to palliative care/hospice service. (4) Leukocytosis Current Visit: Yes Status: Acute Assessment and Plan: Blood cultures and urine cultures ordered. Will continue Levofloxacin for now. WBC trending down. Will monitor CBC. Leukocytosis could inpart be due to malignancy. (5) Breast cancer, left Current Visit: No Status: Chronic Assessment and Plan: Pt does have LUE lymphedema from breast CA. (6) CKD (chronic kidney disease) stage 3, GFR 30-59 ml/min Current Visit: Yes Status: Acute Assessment and Plan: Will monitor renal function DVT Prophylaxis: Heparin - Summary of Assessment and Plan Summary of Assessment and Plan: Ms. Trejo is a 57 year old female with hx of stage IV left breast CA, non- oxygen dependent COPD, [facility] SHe was recently discharged following management for HCAP was on Vancomycin but discharged on Zithromax. Pt speech is slowed and she is an overall poor historian Pt returns with worsening SOB and elevated white count. - Time Spent with Patient Total time spent is greater than 50% in coordination of care (as documented) at patient's floor/unit and/or counseling patient: less than 15 minutes Plan of Care Discussed with: patient Internal Medicine: Result - Labs CBC & Chem 7: 03/21/18 03:51 03/21/18 03:51 Labs: Short CBC 03/21/18 Range/Units 03:51 WBC 25.7 H (4.3-11.1) K/mcL Hgb 8.1 L (11.5-15.4) g/dL Hct 27.1 L (35.3-44.9) % Plt Count 235 (140-400) K/mcL Neutrophils # 23.3 H (1.6-8.9) K/mcL BMP 03/21/18 03:51 Sodium 135 L Potassium 4.0 Chloride 100 Carbon Dioxide 25 BUN 15 Creatinine 1.33 H Glucose 120 H Calcium 8.3 L - Impressions Impressions Chest X-Ray 03/20/18 14:30 IMPRESSION: Mild streaky left basilar opacity may relate to atelectasis or developing infiltrate. D/ / 03/20/2018 15:34:23 Iban Bhandari MD / leela Interpreting Provider: Iban Bhandari MD Consult Discharge Plan - Plan Referrals: Armando Root MD [Primary Care Provider] - (2) COPD (chronic obstructive pulmonary disease) Qualifiers: Qualified Code(s): J44.9 - Chronic obstructive pulmonary disease, unspecified (4) Leukocytosis Qualifiers: Leukocytosis type: unspecified Qualified Code(s): D72.829 - Elevated white blood cell count, unspecified (5) Breast cancer, left Qualifiers: Breast location: unspecified site of breast Estrogen receptor status: unspecified Patient sex: female Qualified Code(s): C50.912 - Malignant neoplasm of unspecified site of left female breast
[2018-03-22] MEDS: Ipratropium/Albuterol Neb 3 ML IH SCH ×4 (04:23→21:55)
[2018-03-22] MEDS: *HR* Heparin 5,000 UNIT/ML VIAL SQ SCH ×2 (05:13→16:56)
[2018-03-22] MEDS: *HR* OxyCODONE/APAP 10/325 TABLET PO SCH ×4 (05:36→23:54)
[2018-03-22] MEDS: predniSONE 10 MG TABLET PO SCH (08:50)
[2018-03-22] MEDS: Aspirin Enteric Coated 81 MG Tablet PO SCH (08:50)
[2018-03-22] MEDS: Folic Acid 1 MG TABLET PO SCH (08:51)
[2018-03-22] MEDS: Cholecalciferol (D-3) 1,000 UNIT TABLET PO SCH (08:51)
[2018-03-22] MEDS: BuPROPion SR (12 HR) 100 MG TABLET PO SCH (08:51)
[2018-03-22] MEDS: ALPRAZolam 1 MG TABLET PO SCH ×2 (08:51→21:11)
[2018-03-22] MEDS: FLUoxetine 20 MG CAPSULE PO SCH (08:51)
[2018-03-22] MEDS: Piperacillin/Tazobactam 3.375 GM in 0.9 % Sodium Chloride Mini Bag 100 ML IVPB SCH ×3 (11:17→23:56)
--- NOTE | 2018-03-22 12:12 | Electrocardiograph Report ---
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
--- NOTE | 2018-03-22 14:13 | Internal Med Progress Note ---
Hospitalist Progress Note - Encounter Date of Encounter: 03/22/18 Time of Encounter: 14:10 - Subjective Interval History: Pt's affect appears flat. Daughter at bedside states she can hear but pt is not wanting to communicate. Palliative/hospice care services spoke with pt's family and plan is for pt to go to [facility] at discharge and will decide from there. - Exam Vitals: Temp Pulse Resp BP Pulse Ox 98.1 F 72 16 103/65 96 03/22/18 10:11 03/22/18 10:11 03/22/18 10:44 03/22/18 10:11 03/22/18 10:44 Exam: . - Assessment and Plan (1) HCAP (healthcare-associated pneumonia) Current Visit: No Status: Acute Assessment and Plan: On Vancomycin, Zosyn , and Levaquin for now. Order sputum culture but pt unable to provide a sample. Blood cultures ordered in ED no growth to date. Seen by speech therapist and recommendations ordered. WBC slowly trending down. Could in part be due to malignancy. Daughter reports dyspnea on exertion today and states she is not normally on oxygen. Will check CXR today. Chest x ray. XR/XR chest 1V portable IMPRESSION: Mild streaky left basilar opacity may relate to atelectasis or developing infiltrate. (2) COPD (chronic obstructive pulmonary disease) Current Visit: No Status: Acute Assessment and Plan: on NH nebs, and resp regimen for now. Will monitor closely. (3) Metastatic breast cancer Current Visit: No Status: Chronic Assessment and Plan: Pt has undergone multiple chemo and radiation. Daughter at bedside today and requesting to talk to palliative care/hospice service. Daughter spoke with palliative care. Awaiting placement to [facility]. (4) Leukocytosis Current Visit: Yes Status: Acute Assessment and Plan: Blood cultures and urine cultures ordered. Will continue Levofloxacin for now. WBC trending down. Will monitor CBC. Leukocytosis could inpart be due to malignancy. (5) Breast cancer, left Current Visit: No Status: Chronic Assessment and Plan: Pt does have LUE lymphedema from breast CA. (6) CKD (chronic kidney disease) stage 3, GFR 30-59 ml/min Current Visit: Yes Status: Acute Assessment and Plan: Will monitor renal function. Checking BMP DVT Prophylaxis: Heparin - Summary of Assessment and Plan Summary of Assessment and Plan: Ms. Trejo is a 57 year old female with hx of stage IV left breast CA, non- oxygen dependent COPD, [facility] resides [facility] a [facility]. SHe was recently discharged following management for HCAP was on Vancomycin but discharged on Zithromax. Pt speech is slowed and she is an overall poor historian Pt returns with worsening SOB and elevated white count. - Time Spent with Patient Total time spent is greater than 50% in coordination of care (as documented) at patient's floor/unit and/or counseling patient: less than 15 minutes Plan of Care Discussed with: patient Internal Medicine: Result - Labs CBC & Chem 7: 03/21/18 03:51 03/21/18 03:51 Consult Discharge Plan - Plan Referrals: Armando Root MD [Primary Care Provider] - (2) COPD (chronic obstructive pulmonary disease) Qualifiers: Qualified Code(s): J44.9 - Chronic obstructive pulmonary disease, unspecified (4) Leukocytosis Qualifiers: Leukocytosis type: unspecified Qualified Code(s): D72.829 - Elevated white bl ood cell count, unspecified (5) Breast cancer, left Qualifiers: Breast location: unspecified site of breast Estrogen receptor status: unspecified Patient sex: female Qualified Code(s): C50.912 - Malignant neoplasm of unspecified site of left female breast
[2018-03-22 15:40] LABS: Basophils % 0.2 %; Eosinophils # 0.1 K/mcL (0.0-0.6); Eosinophils % 0.4 %; Hematocrit 23.4 % (35.3-44.9); Hemoglobin 7.1 g/dL (11.5-15.4); Immature Granulocytes % 4.6 % (0-4); Lymphocytes # 0.3 K/mcL (0.6-4.6); Lymphocytes % 1.4 %; Mean Corpuscular HGB Conc 30.3 g/dL (31.6-35.5); Mean Corpuscular Hemoglobin 26.6 pg (28.0-33.3); Mean Corpuscular Volume 87.6 fL (83.0-100.0); Mean Platelet Volume 12.2 fL (9.4-12.4); Monocytes % 4.3 %; Nucleated Red Blood Cells 0.1 /100 WBC (0); Platelet Count 222 K/mcL (140-400); Red Blood Count 2.67 M/mcL (3.82-4.97); Red Cell Distribution Width 17.1 % (11.5-14.5); Segmented Neutrophils % 89.1 %
[2018-03-22 15:41] LABS: Basophils # 0.1 K/mcL (0.0-0.2); Neutrophils # 21.4 K/mcL (1.6-8.9)
[2018-03-22 15:48] LABS: Calcium 7.6 mg/dL (8.6-10.3)
[2018-03-22 15:59] LABS: Anisocytosis 1+ (Not Present); Large Platelets Present (Not Present); Platelet Estimate Normal (Normal); Toxic Granulation Present (Not Present)
[2018-03-22 18:01] LABS: Adenovirus Not Detected (Not Detect); Bordetella Pertussis Not Detected (Not Detect); Chlamydophila pneumoniae Not Detected (Not Detect); Coronavirus 229E Not Detected (Not Detect); Coronavirus HKU1 Not Detected (Not Detect); Coronavirus NL63 Not Detected (Not Detect); Coronavirus OC43 Not Detected (Not Detect); Human Metapneumovirus Not Detected (Not Detect); Human Rhinovirus/Enterovirus Not Detected (Not Detect); Influenza A Subtype 2009 H1 Not Detected (Not Detect); Influenza A Untypeable Not Detected (Not Detect); Influenza B Not Detected (Not Detect); Mycoplasma pneumoniae Not Detected (Not Detect); Parainfluenza Virus 1 Not Detected (Not Detect); Parainfluenza Virus 2 Not Detected (Not Detect); Parainfluenza Virus 3 Not Detected (Not Detect); Parainfluenza Virus 4 Not Detected (Not Detect); Respiratory Syncytial Virus Not Detected (Not Detect)
[2018-03-23] MEDS: Ipratropium/Albuterol Neb 3 ML IH SCH ×4 (03:45→22:35)
[2018-03-23 04:11] LABS: Basophils # 0.1 K/mcL (0.0-0.2); Basophils % 0.2 %; Eosinophils # 0.1 K/mcL (0.0-0.6); Eosinophils % 0.4 %; Hematocrit 30.4 % (35.3-44.9); Immature Granulocytes % 3.1 % (0-4); Lymphocytes # 0.4 K/mcL (0.6-4.6); Lymphocytes % 1.6 %; Mean Corpuscular HGB Conc 29.9 g/dL (31.6-35.5); Mean Corpuscular Hemoglobin 26.7 pg (28.0-33.3); Mean Corpuscular Volume 89.1 fL (83.0-100.0); Mean Platelet Volume 11.9 fL (9.4-12.4); Monocytes # 0.8 K/mcL (0.0-1.3); Monocytes % 3.2 %; Nucleated Red Blood Cells 0.2 /100 WBC (0); Platelet Count 276 K/mcL (140-400); Red Blood Count 3.41 M/mcL (3.82-4.97); Red Cell Distribution Width 17.7 % (11.5-14.5); Segmented Neutrophils % 91.5 %
[2018-03-23 04:13] LABS: Hemoglobin 9.1 g/dL (11.5-15.4)
[2018-03-23 04:30] LABS: Calcium 8.2 mg/dL (8.6-10.3); Potassium 4.1 mEq/L (3.5-5.1)
[2018-03-23 05:11] LABS: Anisocytosis 1+ (Not Present); Platelet Estimate Normal (Normal); Polychromasia 1+ (Not Present)
[2018-03-23 05:12] LABS: Large Platelets Present (Not Present)
[2018-03-23] MEDS: *HR* OxyCODONE/APAP 10/325 TABLET PO SCH ×3 (06:28→18:31)
[2018-03-23] MEDS: Acetaminophen 325 MG TABLET PO PRN (06:28)
[2018-03-23] MEDS: Levofloxacin 750 MG/150 ML 750 MG/150 ML BAG IVPB SCH (06:31)
[2018-03-23] MEDS: *HR* Heparin 5,000 UNIT/ML VIAL SQ SCH ×2 (06:56→18:30)
[2018-03-23] MEDS: Folic Acid 1 MG TABLET PO SCH (08:16)
[2018-03-23] MEDS: BuPROPion SR (12 HR) 100 MG TABLET PO SCH (08:16)
[2018-03-23] MEDS: Cholecalciferol (D-3) 1,000 UNIT TABLET PO SCH (08:16)
[2018-03-23] MEDS: FLUoxetine 20 MG CAPSULE PO SCH (08:16)
[2018-03-23] MEDS: ALPRAZolam 1 MG TABLET PO SCH ×2 (08:16→21:06)
[2018-03-23] MEDS: Aspirin Enteric Coated 81 MG Tablet PO SCH (08:16)
[2018-03-23] MEDS: predniSONE 10 MG TABLET PO SCH (08:20)
[2018-03-23] MEDS: Piperacillin/Tazobactam 3.375 GM in 0.9 % Sodium Chloride Mini Bag 100 ML IVPB SCH ×2 (09:40→16:58)
--- NOTE | 2018-03-23 13:02 | Internal Med Progress Note ---
Hospitalist Progress Note - Encounter Date of Encounter: 03/23/18 Time of Encounter: 12:20 - Subjective Interval History: Ms. Trejo is a 57 year old female with hx of stage IV left metastatic breast CA on oral chemo therapy, COPD, GERD, Fibromyalgia, HTN, CKD-3 who recently admitted hre for HCAP, now she got admitted here for AMS / Toxic encephalopathy and worsening pneumonia. She is currently on 3 lit O2 NC. She is alert, awake and O x 3, however looks lethargic and weak. - Exam Vitals: Temp Pulse Resp BP Pulse Ox 97.9 F 70 16 104/64 99 03/23/18 10:42 03/23/18 10:42 03/23/18 10:47 03/23/18 10:42 03/23/18 10:47 Exam: Gen: A, A, O x 3 Chest: Diminished BS b/l, mild wheezing, no crackles, no rales heart: S1S2+ RRR No murmurs Abd: Soft, Tenderness @ RUQ, mild distended, No guarding Ext: Trace edema.. Pulses +, No calf tenderness Neuro: No focal deficits - Assessment and Plan (1) HCAP (healthcare-associated pneumonia) Current Visit: No Status: Acute Assessment and Plan: Cont broad spec abx Zosyn and Vanc for now Mostly bacterial pneumonia on Duoneb and o2 (2) Acute respiratory failure with hypoxia Current Visit: No Status: Resolved Assessment and Plan: Due to PNA and deconditioning cont Duoneb and O2 no need of steroids (3) Breast cancer, left Current Visit: No Status: Chronic Assessment and Plan: Stage 4 breast Ca metastasis to liver CT abdomen/pelvis from January, revealed interval increased size of the presumed right hepatic metastatic lesion likely secondary to necrosis, interval decreased size of the left hepatic lesion, Unchanged bony metastatic lesions within the L4 and L5 segments Seems to be overall very poor prognosis, pt may not tolerate chemo therapy any more Pt and her family would like to talk to Heme Onc.. will consult them in AM (4) Metastatic breast cancer Current Visit: No Status: Chronic Assessment and Plan: Pt has undergone multiple chemo and radiation. (5) Leukocytosis Current Visit: Yes Status: Acute Assessment and Plan: due to HCAP and reactive with Malignancy (6) COPD (chronic obstructive pulmonary disease) Current Visit: No Status: Acute Assessment and Plan: on NH nebs, and resp regimen for now. Will monitor closely. (7) CKD (chronic kidney disease) stage 3, GFR 30-59 ml/min Current Visit: Yes Status: Acute Assessment and Plan: stable Cr at baseline - Time Spent with Patient Total time spent is greater than 50% in coordination of care (as documented) at patient's floor/unit and/or counseling patient: Internal Medicine: Result - Labs CBC & Chem 7: 03/23/18 03:41 03/23/18 03:41 Labs: Short CBC 03/22/18 03/23/18 Range/Units 15:08 03:41 WBC 24.0 H 24.0 H (4.3-11.1) K/mcL Hgb 7.1 L 9.1 L D (11.5-15.4) g/dL Hct 23.4 L 30.4 L (35.3-44.9) % Plt Count 222 276 (140-400) K/mcL Neutrophils # 21.4 H 22.0 H (1.6-8.9) K/mcL BMP 03/22/18 03/23/18 15:08 03:41 Sodium 133 L 138 Potassium 4.0 4.1 Chloride 100 102 Carbon Dioxide 24 25 BUN 10 11 Creatinine 1.30 H 1.74 H Glucose 157 H 88 Calcium 7.6 L 8.2 L - Impressions Impressions Chest X-Ray 03/22/18 14:18 IMPRESSION: Mild bibasilar opacities are likely atelectasis with small effusions. D/ / Maikel Bronson MD / Maikel Bronson MD Interpreting Provider: Maikel Bronson MD Consult Discharge Plan - Plan Referrals: Armando Root MD [Primary Care Provider] - (3) Breast cancer, left Qualifiers: Breast location: unspecified site of breast Estrogen receptor status: unspecified Patient sex: female Qualified Code(s): C50.912 - Malignant neoplasm of unspecified site of left female breast (5) Leukocytosis Qualifiers: Leukocytosis type: unspecified Qualified Code(s): D72.829 - Elevated white blood cell count, unspecified (6) COPD (chronic obstructive pulmonary disease) Qualifiers: Qualified Code(s): J44.9 - Chronic obstructive pulmonary disease, unspecified
[2018-03-24] MEDS: *HR* OxyCODONE/APAP 10/325 TABLET PO SCH ×5 (00:15→21:08)
[2018-03-24] MEDS: Ipratropium/Albuterol Neb 3 ML IH SCH ×4 (04:10→23:32)
[2018-03-24] MEDS: *HR* Heparin 5,000 UNIT/ML VIAL SQ SCH ×2 (05:31→19:55)
[2018-03-24] MEDS: Acetaminophen 325 MG TABLET PO PRN (05:31)
[2018-03-24 06:54] LABS: Basophils % 0.1 %; Eosinophils # 0.1 K/mcL (0.0-0.6); Eosinophils % 0.3 %; Hematocrit 25.2 % (35.3-44.9); Hemoglobin 7.5 g/dL (11.5-15.4); Immature Granulocytes % 1.9 % (0-4); Lymphocytes # 0.4 K/mcL (0.6-4.6); Lymphocytes % 1.7 %; Mean Corpuscular HGB Conc 29.8 g/dL (31.6-35.5); Mean Corpuscular Hemoglobin 26.9 pg (28.0-33.3); Mean Corpuscular Volume 90.3 fL (83.0-100.0); Mean Platelet Volume 11.8 fL (9.4-12.4); Monocytes # 1.1 K/mcL (0.0-1.3); Monocytes % 4.8 %; Neutrophils # 20.7 K/mcL (1.6-8.9); Nucleated Red Blood Cells 0.1 /100 WBC (0); Platelet Count 207 K/mcL (140-400); Red Blood Count 2.79 M/mcL (3.82-4.97); Red Cell Distribution Width 17.5 % (11.5-14.5); Segmented Neutrophils % 91.2 %
[2018-03-24 07:51] LABS: Albumin 2.7 g/dL (3.5-5.7); Bilirubin,Total 0.6 mg/dL (0.3-1.0); Calcium 7.9 mg/dL (8.6-10.3); Globulin 2.7 g/dL (2.4-3.5); Magnesium 1.8 mg/dL (1.6-2.6); Potassium 3.9 mEq/L (3.5-5.1); Total Protein 5.4 g/dL (6.4-8.9)
[2018-03-24] MEDS: FLUoxetine 20 MG CAPSULE PO SCH (08:59)
[2018-03-24] MEDS: Aspirin Enteric Coated 81 MG Tablet PO SCH (08:59)
[2018-03-24] MEDS: Cholecalciferol (D-3) 1,000 UNIT TABLET PO SCH (09:00)
[2018-03-24] MEDS: Folic Acid 1 MG TABLET PO SCH (09:00)
[2018-03-24] MEDS: *HR* FentaNYL PATCH 50 MCG PATCH TD SCH (09:00)
[2018-03-24] MEDS: BuPROPion SR (12 HR) 100 MG TABLET PO SCH (09:00)
[2018-03-24] MEDS: ALPRAZolam 1 MG TABLET PO SCH ×2 (09:00→21:09)
[2018-03-24] MEDS: Piperacillin/Tazobactam 3.375 GM in 0.9 % Sodium Chloride Mini Bag 100 ML IVPB SCH ×3 (09:01→19:54)
--- NOTE | 2018-03-24 09:14 | Palliative Progress Note ---
Date of Encounter: 03/24/18 Time of Encounter: 08:40 - Assessment and plan (1) Leukocytosis Current Visit: Yes Status: Acute Assessment and plan: WBC 22.7; improving. IV antibiotics in place per Primary team. Qualifiers: Leukocytosis type: unspecified Qualified Code(s): D72.829 - Elevated white blood cell count, unspecified (2) Anxiety Current Visit: No Status: Chronic Assessment and plan: Patient reports anxiety present. Has scheduled Xanax and PRN Ativan. Has received 1 dose of Ativan PRN since admission. Continue PRN. (3) Breast cancer, left Current Visit: No Status: Chronic Qualifiers: Breast location: unspecified site of breast Estrogen receptor status: unspecified Patient sex: female Qualified Code(s): C50.912 - Malignant neoplasm of unspecified site of left female breast (4) Metastatic breast cancer Current Visit: No Status: Chronic (5) Advanced directives, counseling/discussion Current Visit: No Status: Acute Assessment and plan: Met with patient and family regarding goals of care. Desire to transition to [facility] with [facility] hospice. Noted during chart review primary team discussed potential of hemo oncology consult this am for confirmation of decisions regarding goals of care. Evaluated with patient's daughter (MPOA) and patient regarding need for further oncology discussion as pursuing treatment would hinder ability to start hospice program at this time; verbalized understanding with diagnosis and prognosis, desire to transition to hospice today. Family denies need for hemo oncology consult at this time. Spoke with Dasia CASTILLO for assistance in confirming placement availability. Informed family and patient would keep informed once confirmed bed availability. Will call referral to [facility] hospice one bed status has been confirmed. 1510: Review team continuing to review case as patient has previously been refused from [facility] previously. Awaiting return phone call, per [employer] note. 1600: Received phone call from JONATHAN and Daron at [facility]. Patient has been accepted; however, due to many admissions in facility requested patient to wait until this am to discharge there. Dr. Bhandari notified and verbalized agreement. (6) Cancer related pain Current Visit: No Status: Acute Assessment and plan: Patient denies pain during assessment. Has fentanyl Patch in place, reports helping. (7) Constipation by delayed colonic transit Current Visit: Yes Status: Acute Assessment and plan: Patient has had smear BM since admission. Will add bowel regimen. - Time Spent With Patient Total time spent is greater than 50% in coordination of care (as documented) at patient's floor/unit and/or counseling patient: 25 - 35 minutes - Subjective Interval history: Patient sitting up in bed upon arrival for assessment. Patient is alert and oriented times 3. Patient's daughter (RADHA) present at bedside. Had received phone call from 3A Nurse that family upset regarding blood draws and desire to transition patient to [facility] today. Arrived to room and discussed need for blood draws as family desires antibiotic treatment over the weekend, verbalized understanding. Patient denies pain, shortness of breath, nausea, and vomiting. Patient reports anxiety, receiving scheduled Xanax at time of assessment. - Constitutional Vitals: Abnormal lab results WBC 22.7 K/mcL (4.3-11.1) H 03/24/18 06:32 RBC 2.79 M/mcL (3.82-4.97) L 03/24/18 06:32 Hgb 7.5 g/dL (11.5-15.4) L D 03/24/18 06:32 Hct 25.2 % (35.3-44.9) L 03/24/18 06:32 MCH 26.9 pg (28.0-33.3) L 03/24/18 06:32 MCHC 29.8 g/dL (31.6-35.5) L 03/24/18 06:32 RDW 17.5 % (11.5-14.5) H 03/24/18 06:32 Neutrophils # 20.7 K/mcL (1.6-8.9) H 03/24/18 06:32 Lymphocytes # 0.4 K/mcL (0.6-4.6) L 03/24/18 06:32 Nucleated RBCs/100 WBC 0.1 /100 WBC (0) H 03/24/18 06:32 Toxic Granulation Present (Not Present) A 03/22/18 15:08 Large Platelets Present (Not Present) A 03/23/18 03:41 Polychromasia 1+ (Not Present) A 03/23/18 03:41 Anisocytosis 1+ (Not Present) A 03/23/18 03:41 Macrocytosis Present (Not Present) A 03/21/18 03:51 Sodium 135 mEq/L (136-145) L 03/24/18 06:32 Carbon Dioxide 19 mEq/L (23-29) L 03/24/18 06:32 Creatinine 1.92 mg/dL (0.60-1.20) H 03/24/18 06:32 Est GFR ( Amer) 32 (> 60) L 03/24/18 06:32 Est GFR (Non-Af Amer) 27 (> 60) L 03/24/18 06:32 Glucose 136 mg/dL (70-105) H 03/24/18 06:32 Calcium 7.9 mg/dL (8.6-10.3) L 03/24/18 06:32 Direct Bilirubin 0.3 mg/dL (0.0-0.2) H 03/20/18 14:51 Alkaline Phosphatase 226 Units/L (34-104) H 03/24/18 06:32 Serum Total Protein 5.4 g/dL (6.4-8.9) L 03/24/18 06:32 Albumin 2.7 g/dL (3.5-5.7) L 03/24/18 06:32 Albumin/Globulin Ratio 1.0 (1.1-2.2) L 03/24/18 06:32 Vancomycin Trough 21 mcg/mL (5-10) H 03/24/18 06:32 General appearance: Present: cooperative, morbidly obese, no acute distress - Head Head exam: Present: atraumatic, normal inspection - Eye Eye exam: Absent: periorbital swelling, periorbital tenderness Pupils: Present: normal accommodation, PERRL - ENT ENT exam: Present: mucous membranes moist, normal external ear exam - Neck Neck exam: Present: full ROM, normal inspection - Respiratory Respiratory exam: Present: rhonchi. Absent: accessory muscle use, respiratory distress - Cardiovascular Cardiovascular exam: Present: +S1, +S2 - GI/Abdominal GI/Abdominal exam: Present: hypoactive bowel sounds, soft. Absent: tenderness - Rectal Rectal exam: Present: deferred - Extremities Exam Extremities exam: Present: normal inspection. Absent: calf tenderness, pedal edema - Back Exam Back exam: Present: normal inspection - Neurological Exam Neurological exam: Present: alert, oriented X3, strengths equal and symetr throughout - Psychiatric Psychiatric exam: Present: normal affect, normal mood - Skin Skin exam: Present: intact, warm Palliative Quality Palliative Quality: Screen for Code Status: Yes, Screen for Goals of Care: Yes, Screen for Pain: Yes, If Pain Regimen Started, Initiate Bowel Regimen: Yes, Screen for Nausea/Vomitting: Yes Code Status: 03/20/18 21:49 Resuscitation Status: Active [RES] Routine Comment: Resuscitation Status: Full Code 03/21/18 16:04 DNR [Resuscitation Status: Active] [RES] Routine Comment: State form completed. Resuscitation Status: DNR-Comfort Care - Labs CBC & Chem 7: 03/24/18 06:32 03/24/18 06:32 Labs: Laboratory Results - last 24 hr 03/24/18 03/24/18 03/24/18 06:32 06:32 06:32 WBC 22.7 H RBC 2.79 L Hgb 7.5 L D Hct 25.2 L MCV 90.3 MCH 26.9 L MCHC 29.8 L RDW 17.5 H Plt Count 207 MPV 11.8 Immature Gran % 1.9 Seg Neutrophils % 91.2 Lymphocytes % 1.7 Monocytes % 4.8 Eosinophils % 0.3 Basophils % 0.1 Neutrophils # 20.7 H Lymphocytes # 0.4 L Monocytes # 1.1 Eosinophils # 0.1 Basophils # 0.0 Nucleated RBCs/100 WBC 0.1 H Sodium 135 L Potassium 3.9 Chloride 102 Carbon Dioxide 19 L BUN 12 Creatinine 1.92 H Est GFR ( Amer) 32 L Est GFR (Non-Af Amer) 27 L BUN/Creatinine Ratio 6 Glucose 136 H Calculated Osmolality 282 Calcium 7.9 L Magnesium 1.8 Total Bilirubin 0.6 AST 18 ALT 15 Alkaline Phosphatase 226 H Serum Total Protein 5.4 L Albumin 2.7 L Globulin 2.7 Albumin/Globulin Ratio 1.0 L Vancomycin Trough 21 H Consult Discharge Plan - Plan Referrals: Armando Root MD [Primary Care Provider] -
[2018-03-24] MEDS ORDERED: Aminoglycoside Consult 1 EACH MC ONE (13:37)
[2018-03-24] MEDS: Nystatin SUSP 5 ML UD.LIQ PO SCH ×3 (16:25→21:09)
--- NOTE | 2018-03-24 16:52 | Oncology Inp Consult Note ---
<Rosa Gonzalez L - Last Filed: 03/24/18 16:49> Date of Encounter: 03/24/18 Time of Encounter: 16:00 Assessment and Plan (1) Metastatic breast cancer Status: Chronic Assessment and plan: Metastatic breast cancer, Stage IV, current treatment includes everolimus and aromasin (initiated 10/06/2017) S/P multiple lines of therapy, currently on fifth line of treatment (refer to medical oncology progress note for full treatment summary) (2) Advanced directives, counseling/discussion Status: Acute Assessment and plan: Patient and family had already had discussion with palliative care and hospitalist team prior to our consultation today Ms. Trejo and family understand that her weakness, symptoms related to worsening pneumonia and encephalopaty along with active malignancy are limited her chances of meaningful rehabilitation to the point that she would be able to initiate further treatment Aggressive versus less aggressive treatment options were discussed, the hospice philosophy was again introduced We discussed that her symptom management may be best controlled in the hospice setting which is a completely reasonable option at this time given her overall clinical picture Ultimately, Ms. Trejo and her family wish to pursue discharge to nursing facility with hospice care at this time and do not wish to pursue further chemotherapy Should her condition improve to the point where she wishes to pursue treatment she may contact the cancer center for further discussion (patients family wish to contact us versus have a future appointment arranged) Oncology will otherwise plan to sign off at this time, appreciate the assistance of the hospitalist and palliative care team for figuring of logistics in relation to discharge with hospice - Data of Consult Requesting Physician: Royal Resendez MD Primary Care Provider: Armando Root MD - Consult Narrative Reason for consult: Metastatic breast CA, Stage IV History of present illness: Ms. Trejo is a 57 year old female with metastatic breast cancer, Stage IV, current treatment includes everolimus and aromasin (initiated 10/06/2017). S/P multiple lines of treatment, currently on fifth line, refer to Dr. Jennings's clinic note for full oncology treatment summary. CT abdomen/pelvis from January, revealed interval increased size of the presumed right hepatic metastatic lesion likely secondary to necrosis, interval decreased size of the left hepatic lesion, Unchanged bony metastatic lesions within the L4 and L5 segments. She has malignancy related RUQ pain. Pain managed with 50 mcg fentanyl patch and Percocet 10/325. Anxiety controlled with xanax. Ms. Busby was recently discharged from the hospital for HCAP, returning within a few days to [facility] ER for worsening respiratory function and leukocytosis, toxic encephalopathy and fall at nursing facility.Palliative care has been consulted given her worsening clinical picture and inability to tolerate rehabilitation. Goals of care discussion with patient and family has already led to plans for discharge to [facility] with hospice. Past Med Surg Social Fam HX - Past Medical History Medical history: arthritis, cancer, COPD, CVA, fibromyalgia, GERD, hyperlipidemia, hypertension, renal disease, other Additional medical history: no deficits from previous strokes Psychiatric history: no psych history - Past Surgical History Surgical History: LILIANE/BSO, other Additional surgical history: exploratory abdominal surgery, port - Social History Smoking Status: Current every day smoker Smokeless Tobacco Status: No Alcohol use: none Drug use: none - Family History Mother Living Status: Hx Family Cardiac Disorders: Yes (HLD) Hx Family Endocrine Disorder: Yes (DM) Medications and Allergies RX: Prochlorperazine Maleate [Compazine] 10 mg PO Q6H PRN #30 tablet 08/30/15 [Rx] RX: Loperamide [Imodium] 2 mg PO TID PRN 09/21/16 [History] RX: Aspirin [Lo-Dose Aspirin EC] 81 mg PO DAILY 12/06/17 [History] RX: Cholecalciferol (Vitamin D3) [Vitamin D3] 4,000 unit PO DAILY 12/06/17 [History] RX: FLUoxetine HCl [Prozac] 20 mg PO DAILY 12/06/17 [History] RX: Lovastatin 40 mg PO DAILY 12/06/17 [History] RX: Propranolol [Inderal] 20 mg PO DAILY #30 tablet 02/18/18 [Rx] RX: FLUoxetine HCl [Fluoxetine HCl] 40 mg PO DAILY 03/10/18 [History] RX: Loratadine [Claritin] 10 mg PO DAILY PRN 03/10/18 [History] RX: Omeprazole [PriLOSEC] 20 mg PO BID 03/10/18 [History] Xecyugryelqn-Vddm-Cvwewatq,Iso [Zosyn 3.375 gm/50 ml Galaxy] 3.375 gm IV Q8HR #18 froz.piggy 03/17/18 [Rx] RX: ALPRAZolam [Xanax 1 MG Tablet] 1 mg PO BID 5 Days #10 tablet 03/17/18 [Rx] RX: FentaNYL PATCH [Duragesic] 50 mcg TD Q72H 30 Days #1 patch.td72 03/17/18 [Rx] RX: Ipratropium/Albuterol Neb [Duoneb] 3 ml IH QID inhsol 03/17/18 [Rx] RX: LORazepam [Ativan] 0.5 mg PO Q4HR PRN 4 Days #10 tablet 03/17/18 [Rx] RX: Potassium Chloride 20 meq PO BIDWM tab.er.prt 03/17/18 [Rx] RX: PredniSONE [Deltasone] 10 mg PO QAM #5 tablet 03/17/18 [Rx] Azithromycin [Zithromax Tri-Sebastian] 500 mg PO DAILY 03/20/18 [History] OxyCODONE/APAP 10/325 [Percocet 10/325 MG] 1 tab PO QID 03/20/18 [History] RX: Heparin 5,000 unit SQ Q12HR 03/20/18 [History] buPROPion HCl [Bupropion HCl Sr] 200 mg PO DAILY 03/21/18 [History] RX: Folic Acid 1 mg PO DAILY #30 tablet 03/24/18 [Rx] Allergy/AdvReac Type Severity Reaction Status Date / Time arthritis medication Allergy Rash Uncoded 03/10/18 09:30 Constitutional: Present: anorexia, chills, fatigue, fever(s), frequent falls, weakness, weight loss Eyes: Absent: change in vision Nose, mouth and throat: Absent: dysphagia Cardiovascular: Absent: chest pain, palpitations Gastrointestinal: Present: abdominal pain, nausea. Absent: change in bowel habits, vomiting Genitourinary: Absent: dysuria Musculoskeletal: Present: muscle weakness Integumentary: Absent: wounds Neurological: Absent: focal weakness Psychiatric: Present: anxiety Hematologic/Lymphatic: Present: as per HPI Oncology - Exam - Constitutional Vitals: Temp Pulse Resp BP Pulse Ox 98.4 F 68 18 93/52 98 03/24/18 13:59 03/24/18 13:59 03/24/18 16:15 03/24/18 13:59 03/24/18 16:15 General appearance: no acute distress, no febrile Exam: drowsy but responds to voice - Head Head exam: Present: atraumatic - ENT ENT exam: Present: mucous membranes dry - Respiratory Respiratory exam: Present: decreased breath sounds. Absent: respiratory distress - Cardiovascular Cardiovascular exam: Present: RRR, +S1, +S2 - GI/Abdominal GI/Abdominal exam: Present: normal bowel sounds, soft, tenderness. Absent: rebound Additional comments: tenderness to RUQ - Extremities Exam Extremities exam: Absent: calf tenderness - Neurological Exam Neurological exam: Present: alert, no focal deficits, strengths equal and symetr throughout Additional comments: drowsy at times but responds to voice, oriented to person and time (thought she as at the long-term), confused at times (patient reports increased mental clarity today than on admission) - Psychiatric Psychiatric exam: Present: normal affect, normal mood - Skin Skin exam: Present: dry, normal color, warm Oncology - Results Labs: 03/24/18 03/24/18 03/24/18 06:32 06:32 06:32 WBC 22.7 H RBC 2.79 L Hgb 7.5 L D Hct 25.2 L MCV 90.3 MCH 26.9 L MCHC 29.8 L RDW 17.5 H Plt Count 207 MPV 11.8 Immature Gran % 1.9 Seg Neutrophils % 91.2 Lymphocytes % 1.7 Monocytes % 4.8 Eosinophils % 0.3 Basophils % 0.1 Neutrophils # 20.7 H Lymphocytes # 0.4 L Monocytes # 1.1 Eosinophils # 0.1 Basophils # 0.0 Nucleated RBCs/100 WBC 0.1 H Toxic Granulation Platelet Estimate Large Platelets Polychromasia Anisocytosis Macrocytosis Sodium 135 L Potassium 3.9 Chloride 102 Carbon Dioxide 19 L BUN 12 Creatinine 1.92 H Est GFR ( Amer) 32 L Est GFR (Non-Af Amer) 27 L BUN/Creatinine Ratio 6 Glucose 136 H POC Glucose Calculated Osmolality 282 Lactic Acid Calcium 7.9 L Magnesium 1.8 Total Bilirubin 0.6 Direct Bilirubin Indirect Bilirubin AST 18 ALT 15 Alkaline Phosphatase 226 H Serum Total Protein 5.4 L Albumin 2.7 L Globulin 2.7 Albumin/Globulin Ratio 1.0 L Vancomycin Trough 21 H Chlamy pneumoniae PCR Adenovirus (PCR) B. pertussis DNA (PCR) B.parapertussis DNA PCR Coronavirus OC43 (PCR) Coronavirus HKU1 (PCR) Coronavirus 229E (PCR) Coronavirus NL63 (PCR) Human Metapneumovir PCR Influenza A (H1) PCR Influ A (H1N1) PCR Influenza A (H3) PCR Influenza A Untype (PCR) Influenza Type B (PCR) M.pneumoniae DNA (PCR) Parainfluenza 1 (PCR) Parainfluenza 2 (PCR) Parainfluenza 3 (PCR) Parainfluenza 4 (PCR) RSV (PCR) Entero/Rhino (PCR) 03/23/18 03/23/18 03/22/18 03:41 03:41 16:00 WBC 24.0 H RBC 3.41 L Hgb 9.1 L D Hct 30.4 L MCV 89.1 MCH 26.7 L MCHC 29.9 L RDW 17.7 H Plt Count 276 MPV 11.9 Immature Gran % 3.1 Seg Neutrophils % 91.5 Lymphocytes % 1.6 Monocytes % 3.2 Eosinophils % 0.4 Basophils % 0.2 Neutrophils # 22.0 H Lymphocytes # 0.4 L Monocytes # 0.8 Eosinophils # 0.1 Basophils # 0.1 Nucleated RBCs/100 WBC 0.2 H Toxic Granulation Platelet Estimate Normal Large Platelets Present A Polychromasia 1+ A Anisocytosis 1+ A Macrocytosis Sodium 138 Potassium 4.1 Chloride 102 Carbon Dioxide 25 BUN 11 Creatinine 1.74 H Est GFR ( Amer) 36 L Est GFR (Non-Af Amer) 30 L BUN/Creatinine Ratio 6 Glucose 88 POC Glucose Calculated Osmolality 285 Lactic Acid Calcium 8.2 L Magnesium Total Bilirubin Direct Bilirubin Indirect Bilirubin AST ALT Alkaline Phosphatase Serum Total Protein Albumin Globulin Albumin/Globulin Ratio Vancomycin Trough Chlamy pneumoniae PCR Not Detected Adenovirus (PCR) Not Detected B. pertussis DNA (PCR) Not Detected B.parapertussis DNA PCR Not Detected Coronavirus OC43 (PCR) Not Detected Coronavirus HKU1 (PCR) Not Detected Coronavirus 229E (PCR) Not Detected Coronavirus NL63 (PCR) Not Detected Human Metapneumovir PCR Not Detected Influenza A (H1) PCR Not Detected Influ A (H1N1) PCR Not Detected Influenza A (H3) PCR Not Detected Influenza A Untype (PCR) Not Detected Influenza Type B (PCR) Not Detected M.pneumoniae DNA (PCR) Not Detected Parainfluenza 1 (PCR) Not Detected Parainfluenza 2 (PCR) Not Detected Parainfluenza 3 (PCR) Not Detected Parainfluenza 4 (PCR) Not Detected RSV (PCR) Not Detected Entero/Rhino (PCR) Not Detected 03/22/18 03/22/18 03/22/18 15:08 15:08 03:06 WBC 24.0 H RBC 2.67 L Hgb 7.1 L Hct 23.4 L MCV 87.6 MCH 26.6 L MCHC 30.3 L RDW 17.1 H Plt Count 222 MPV 12.2 Immature Gran % 4.6 H Seg Neutrophils % 89.1 Lymphocytes % 1.4 Monocytes % 4.3 Eosinophils % 0.4 Basophils % 0.2 Neutrophils # 21.4 H Lymphocytes # 0.3 L Monocytes # 1.0 Eosinophils # 0.1 Basophils # 0.1 Nucleated RBCs/100 WBC 0.1 H Toxic Granulation Present A Platelet Estimate Normal Large Platelets Present A Polychromasia Anisocytosis 1+ A Macrocytosis Sodium 133 L Potassium 4.0 Chloride 100 Carbon Dioxide 24 BUN 10 Creatinine 1.30 H Est GFR ( Amer) 51 L Est GFR (Non-Af Amer) 42 L BUN/Creatinine Ratio 8 Glucose 157 H POC Glucose Calculated Osmolality 278 L Lactic Acid Calcium 7.6 L Magnesium Total Bilirubin Direct Bilirubin Indirect Bilirubin AST ALT Alkaline Phosphatase Serum Total Protein Albumin Globulin Albumin/Globulin Ratio Vancomycin Trough 14 H Chlamy pneumoniae PCR Adenovirus (PCR) B. pertussis DNA (PCR) B.parapertussis DNA PCR Coronavirus OC43 (PCR) Coronavirus HKU1 (PCR) Coronavirus 229E (PCR) Coronavirus NL63 (PCR) Human Metapneumovir PCR Influenza A (H1) PCR Influ A (H1N1/09) PCR Influenza A (H3) PCR Influenza A Untype (PCR) Influenza Type B (PCR) M.pneumoniae DNA (PCR) Parainfluenza 1 (PCR) Parainfluenza 2 (PCR) Parainfluenza 3 (PCR) Parainfluenza 4 (PCR) RSV (PCR) Entero/Rhino (PCR) 03/21/18 03/21/18 03/21/18 03:51 03:51 00:28 WBC 25.7 H RBC 3.01 L Hgb 8.1 L Hct 27.1 L MCV 90.0 MCH 26.9 L MCHC 29.9 L RDW 17.0 H Plt Count 235 MPV 12.0 Immature Gran % 2.6 Seg Neutrophils % 90.8 Lymphocytes % 1.9 Monocytes % 4.3 Eosinophils % 0.3 Basophils % 0.1 Neutrophils # 23.3 H Lymphocytes # 0.5 L Monocytes # 1.1 Eosinophils # 0.1 Basophils # 0.0 Nucleated RBCs/100 WBC 0.2 H Toxic Granulation Platelet Estimate Normal Large Platelets Present A Polychromasia 2+ A Anisocytosis 1+ A Macrocytosis Present A Sodium 135 L Potassium 4.0 Chloride 100 Carbon Dioxide 25 BUN 15 Creatinine 1.33 H Est GFR ( Amer) 49 L Est GFR (Non-Af Amer) 41 L BUN/Creatinine Ratio 11 Glucose 120 H POC Glucose 95 Calculated Osmolality 282 Lactic Acid Calcium 8.3 L Magnesium Total Bilirubin Direct Bilirubin Indirect Bilirubin AST ALT Alkaline Phosphatase Serum Total Protein Albumin Globulin Albumin/Globulin Ratio Vancomycin Trough Chlamy pneumoniae PCR Adenovirus (PCR) B. pertussis DNA (PCR) B.parapertussis DNA PCR Coronavirus OC43 (PCR) Coronavirus HKU1 (PCR) Coronavirus 229E (PCR) Coronavirus NL63 (PCR) Human Metapneumovir PCR Influenza A (H1) PCR Influ A (H1N1/09) PCR Influenza A (H3) PCR Influenza A Untype (PCR) Influenza Type B (PCR) M.pneumoniae DNA (PCR) Parainfluenza 1 (PCR) Parainfluenza 2 (PCR) Parainfluenza 3 (PCR) Parainfluenza 4 (PCR) RSV (PCR) Entero/Rhino (PCR) 03/20/18 03/20/18 03/20/18 14:51 14:51 14:51 WBC RBC Hgb Hct MCV MCH MCHC RDW Plt Count MPV Immature Gran % Seg Neutrophils % Lymphocytes % Monocytes % Eosinophils % Basophils % Neutrophils # Lymphocytes # Monocytes # Eosinophils # Basophils # Nucleated RBCs/100 WBC Toxic Granulation Platelet Estimate Large Platelets Polychromasia Anisocytosis Macrocytosis Sodium 133 L Potassium 4.4 Chloride 99 Carbon Dioxide 24 BUN 14 Creatinine 1.35 H Est GFR ( Amer) 49 L Est GFR (Non-Af Amer) 40 L BUN/Creatinine Ratio 10 Glucose 170 H POC Glucose Calculated Osmolality 280 Lactic Acid 1.8 Calcium 7.6 L Magnesium Total Bilirubin 0.5 Direct Bilirubin 0.3 H Indirect Bilirubin 0.2 AST 14 ALT 15 Alkaline Phosphatase 126 H Serum Total Protein 5.4 L Albumin 2.7 L Globulin 2.7 Albumin/Globulin Ratio 1.0 L Vancomycin Trough Chlamy pneumoniae PCR Adenovirus (PCR) B. pertussis DNA (PCR) B.parapertussis DNA PCR Coronavirus OC43 (PCR) Coronavirus HKU1 (PCR) Coronavirus 229E (PCR) Coronavirus NL63 (PCR) Human Metapneumovir PCR Influenza A (H1) PCR Influ A (H1N1/09) PCR Influenza A (H3) PCR Influenza A Untype (PCR) Influenza Type B (PCR) M.pneumoniae DNA (PCR) Parainfluenza 1 (PCR) Parainfluenza 2 (PCR) Parainfluenza 3 (PCR) Parainfluenza 4 (PCR) RSV (PCR) Entero/Rhino (PCR) 03/20/18 14:51 WBC 28.6 H D RBC 2.78 L Hgb 7.5 L Hct 24.7 L MCV 88.8 MCH 27.0 L MCHC 30.4 L RDW 17.1 H Plt Count 212 MPV 12.5 H Immature Gran % Seg Neutrophils % Lymphocytes % Monocytes % Eosinophils % Basophils % Neutrophils # Lymphocytes # Monocytes # Eosinophils # Basophils # Nucleated RBCs/100 WBC Toxic Granulation Platelet Estimate Large Platelets Polychromasia Anisocytosis Macrocytosis Sodium Potassium Chloride Carbon Dioxide BUN Creatinine Est GFR ( Amer) Est GFR (Non-Af Amer) BUN/Creatinine Ratio Glucose POC Glucose Calculated Osmolality Lactic Acid Calcium Magnesium Total Bilirubin Direct Bilirubin Indirect Bilirubin AST ALT Alkaline Phosphatase Serum Total Protein Albumin Globulin Albumin/Globulin Ratio Vancomycin Trough Chlamy pneumoniae PCR Adenovirus (PCR) B. pertussis DNA (PCR) B.parapertussis DNA PCR Coronavirus OC43 (PCR) Coronavirus HKU1 (PCR) Coronavirus 229E (PCR) Coronavirus NL63 (PCR) Human Metapneumovir PCR Influenza A (H1) PCR Influ A (H1N1/09) PCR Influenza A (H3) PCR Influenza A Untype (PCR) Influenza Type B (PCR) M.pneumoniae DNA (PCR) Parainfluenza 1 (PCR) Parainfluenza 2 (PCR) Parainfluenza 3 (PCR) Parainfluenza 4 (PCR) RSV (PCR) Entero/Rhino (PCR) Consult Discharge Plan - Plan Referrals: Armando Root MD [Primary Care Provider] - <Clyde Mullins S - Last Filed: 03/25/18 07:48> - Data of Consult Requesting Physician: Royal Resendez MD Primary Care Provider: Armando Root MD - Consult Narrative History of present illness: Ms. Trejo is a 57 year old female Oncology - Exam - Constitutional Vitals: Temp Pulse Resp BP Pulse Ox 97.7 F 74 16 108/71 100 03/25/18 07:05 03/25/18 07:05 03/25/18 07:05 03/25/18 07:05 03/25/18 07:05 Oncology - Results Labs: 03/24/18 03/24/18 03/24/18 06:32 06:32 06:32 WBC 22.7 H RBC 2.79 L Hgb 7.5 L D Hct 25.2 L MCV 90.3 MCH 26.9 L MCHC 29.8 L RDW 17.5 H Plt Count 207 MPV 11.8 Immature Gran % 1.9 Seg Neutrophils % 91.2 Lymphocytes % 1.7 Monocytes % 4.8 Eosinophils % 0.3 Basophils % 0.1 Neutrophils # 20.7 H Lymphocytes # 0.4 L Monocytes # 1.1 Eosinophils # 0.1 Basophils # 0.0 Nucleated RBCs/100 WBC 0.1 H Toxic Granulation Platelet Estimate Large Platelets Polychromasia Anisocytosis Macrocytosis Sodium 135 L Potassium 3.9 Chloride 102 Carbon Dioxide 19 L BUN 12 Creatinine 1.92 H Est GFR ( Amer) 32 L Est GFR (Non-Af Amer) 27 L BUN/Creatinine Ratio 6 Glucose 136 H POC Glucose Calculated Osmolality 282 Lactic Acid Calcium 7.9 L Magnesium 1.8 Total Bilirubin 0.6 Direct Bilirubin Indirect Bilirubin AST 18 ALT 15 Alkaline Phosphatase 226 H Serum Total Protein 5.4 L Albumin 2.7 L Globulin 2.7 Albumin/Globulin Ratio 1.0 L Vancomycin Trough 21 H Chlamy pneumoniae PCR Adenovirus (PCR) B. pertussis DNA (PCR) B.parapertussis DNA PCR Coronavirus OC43 (PCR) Coronavirus HKU1 (PCR) Coronavirus 229E (PCR) Coronavirus NL63 (PCR) Human Metapneumovir PCR Influenza A (H1) PCR Influ A (H1N1/09) PCR Influenza A (H3) PCR Influenza A Untype (PCR) Influenza Type B (PCR) M.pneumoniae DNA (PCR) Parainfluenza 1 (PCR) Parainfluenza 2 (PCR) Parainfluenza 3 (PCR) Parainfluenza 4 (PCR) RSV (PCR) Entero/Rhino (PCR) 03/23/18 03/23/18 03/22/18 03:41 03:41 16:00 WBC 24.0 H RBC 3.41 L Hgb 9.1 L D Hct 30.4 L MCV 89.1 MCH 26.7 L MCHC 29.9 L RDW 17.7 H Plt Count 276 MPV 11.9 Immature Gran % 3.1 Seg Neutrophils % 91.5 Lymphocytes % 1.6 Monocytes % 3.2 Eosinophils % 0.4 Basophils % 0.2 Neutrophils # 22.0 H Lymphocytes # 0.4 L Monocytes # 0.8 Eosinophils # 0.1 Basophils # 0.1 Nucleated RBCs/100 WBC 0.2 H Toxic Granulation Platelet Estimate Normal Large Platelets Present A Polychromasia 1+ A Anisocytosis 1+ A Macrocytosis Sodium 138 Potassium 4.1 Chloride 102 Carbon Dioxide 25 BUN 11 Creatinine 1.74 H Est GFR ( Amer) 36 L Est GFR (Non-Af Amer) 30 L BUN/Creatinine Ratio 6 Glucose 88 POC Glucose Calculated Osmolality 285 Lactic Acid Calcium 8.2 L Magnesium Total Bilirubin Direct Bilirubin Indirect Bilirubin AST ALT Alkaline Phosphatase Serum Total Protein Albumin Globulin Albumin/Globulin Ratio Vancomycin Trough Chlamy pneumoniae PCR Not Detected Adenovirus (PCR) Not Detected B. pertussis DNA (PCR) Not Detected B.parapertussis DNA PCR Not Detected Coronavirus OC43 (PCR) Not Detected Coronavirus HKU1 (PCR) Not Detected Coronavirus 229E (PCR) Not Detected Coronavirus NL63 (PCR) Not Detected Human Metapneumovir PCR Not Detected Influenza A (H1) PCR Not Detected Influ A (H1N1/09) PCR Not Detected Influenza A (H3) PCR Not Detected Influenza A Untype (PCR) Not Detected Influenza Type B (PCR) Not Detected M.pneumoniae DNA (PCR) Not Detected Parainfluenza 1 (PCR) Not Detected Parainfluenza 2 (PCR) Not Detected Parainfluenza 3 (PCR) Not Detected Parainfluenza 4 (PCR) Not Detected RSV (PCR) Not Detected Entero/Rhino (PCR) Not Detected 03/22/18 03/22/18 03/22/18 15:08 15:08 03:06 WBC 24.0 H RBC 2.67 L Hgb 7.1 L Hct 23.4 L MCV 87.6 MCH 26.6 L MCHC 30.3 L RDW 17.1 H Plt Count 222 MPV 12.2 Immature Gran % 4.6 H Seg Neutrophils % 89.1 Lymphocytes % 1.4 Monocytes % 4.3 Eosinophils % 0.4 Basophils % 0.2 Neutrophils # 21.4 H Lymphocytes # 0.3 L Monocytes # 1.0 Eosinophils # 0.1 Basophils # 0.1 Nucleated RBCs/100 WBC 0.1 H Toxic Granulation Present A Platelet Estimate Normal Large Platelets Present A Polychromasia Anisocytosis 1+ A Macrocytosis Sodium 133 L Potassium 4.0 Chloride 100 Carbon Dioxide 24 BUN 10 Creatinine 1.30 H Est GFR ( Amer) 51 L Est GFR (Non-Af Amer) 42 L BUN/Creatinine Ratio 8 Glucose 157 H POC Glucose Calculated Osmolality 278 L Lactic Acid Calcium 7.6 L Magnesium Total Bilirubin Direct Bilirubin Indirect Bilirubin AST ALT Alkaline Phosphatase Serum Total Protein Albumin Globulin Albumin/Globulin Ratio Vancomycin Trough 14 H Chlamy pneumoniae PCR Adenovirus (PCR) B. pertussis DNA (PCR) B.parapertussis DNA PCR Coronavirus OC43 (PCR) Coronavirus HKU1 (PCR) Coronavirus 229E (PCR) Coronavirus NL63 (PCR) Human Metapneumovir PCR Influenza A (H1) PCR Influ A (H1N1/09) PCR Influenza A (H3) PCR Influenza A Untype (PCR) Influenza Type B (PCR) M.pneumoniae DNA (PCR) Parainfluenza 1 (PCR) Parainfluenza 2 (PCR) Parainfluenza 3 (PCR) Parainfluenza 4 (PCR) RSV (PCR) Entero/Rhino (PCR) 03/21/18 03/21/18 03/21/18 03:51 03:51 00:28 WBC 25.7 H RBC 3.01 L Hgb 8.1 L Hct 27.1 L MCV 90.0 MCH 26.9 L MCHC 29.9 L RDW 17.0 H Plt Count 235 MPV 12.0 Immature Gran % 2.6 Seg Neutrophils % 90.8 Lymphocytes % 1.9 Monocytes % 4.3 Eosinophils % 0.3 Basophils % 0.1 Neutrophils # 23.3 H Lymphocytes # 0.5 L Monocytes # 1.1 Eosinophils # 0.1 Basophils # 0.0 Nucleated RBCs/100 WBC 0.2 H Toxic Granulation Platelet Estimate Normal Large Platelets Present A Polychromasia 2+ A Anisocytosis 1+ A Macrocytosis Present A Sodium 135 L Potassium 4.0 Chloride 100 Carbon Dioxide 25 BUN 15 Creatinine 1.33 H Est GFR ( Amer) 49 L Est GFR (Non-Af Amer) 41 L BUN/Creatinine Ratio 11 Glucose 120 H POC Glucose 95 Calculated Osmolality 282 Lactic Acid Calcium 8.3 L Magnesium Total Bilirubin Direct Bilirubin Indirect Bilirubin AST ALT Alkaline Phosphatase Serum Total Protein Albumin Globulin Albumin/Globulin Ratio Vancomycin Trough Chlamy pneumoniae PCR Adenovirus (PCR) B. pertussis DNA (PCR) B.parapertussis DNA PCR Coronavirus OC43 (PCR) Coronavirus HKU1 (PCR) Coronavirus 229E (PCR) Coronavirus NL63 (PCR) Human Metapneumovir PCR Influenza A (H1) PCR Influ A (H1N1/09) PCR Influenza A (H3) PCR Influenza A Untype (PCR) Influenza Type B (PCR) M.pneumoniae DNA (PCR) Parainfluenza 1 (PCR) Parainfluenza 2 (PCR) Parainfluenza 3 (PCR) Parainfluenza 4 (PCR) RSV (PCR) Entero/Rhino (PCR) 03/20/18 03/20/18 03/20/18 14:51 14:51 14:51 WBC RBC Hgb Hct MCV MCH MCHC RDW Plt Count MPV Immature Gran % Seg Neutrophils % Lymphocytes % Monocytes % Eosinophils % Basophils % Neutrophils # Lymphocytes # Monocytes # Eosinophils # Basophils # Nucleated RBCs/100 WBC Toxic Granulation Platelet Estimate Large Platelets Polychromasia Anisocytosis Macrocytosis Sodium 133 L Potassium 4.4 Chloride 99 Carbon Dioxide 24 BUN 14 Creatinine 1.35 H Est GFR ( Amer) 49 L Est GFR (Non-Af Amer) 40 L BUN/Creatinine Ratio 10 Glucose 170 H POC Glucose Calculated Osmolality 280 Lactic Acid 1.8 Calcium 7.6 L Magnesium Total Bilirubin 0.5 Direct Bilirubin 0.3 H Indirect Bilirubin 0.2 AST 14 ALT 15 Alkaline Phosphatase 126 H Serum Total Protein 5.4 L Albumin 2.7 L Globulin 2.7 Albumin/Globulin Ratio 1.0 L Vancomycin Trough Chlamy pneumoniae PCR Adenovirus (PCR) B. pertussis DNA (PCR) B.parapertussis DNA PCR Coronavirus OC43 (PCR) Coronavirus HKU1 (PCR) Coronavirus 229E (PCR) Coronavirus NL63 (PCR) Human Metapneumovir PCR Influenza A (H1) PCR Influ A (H1N1/09) PCR Influenza A (H3) PCR Influenza A Untype (PCR) Influenza Type B (PCR) M.pneumoniae DNA (PCR) Parainfluenza 1 (PCR) Parainfluenza 2 (PCR) Parainfluenza 3 (PCR) Parainfluenza 4 (PCR) RSV (PCR) Entero/Rhino (PCR) 03/20/18 14:51 WBC 28.6 H D RBC 2.78 L Hgb 7.5 L Hct 24.7 L MCV 88.8 MCH 27.0 L MCHC 30.4 L RDW 17.1 H Plt Count 212 MPV 12.5 H Immature Gran % Seg Neutrophils % Lymphocytes % Monocytes % Eosinophils % Basophils % Neutrophils # Lymphocytes # Monocytes # Eosinophils # Basophils # Nucleated RBCs/100 WBC Toxic Granulation Platelet Estimate Large Platelets Polychromasia Anisocytosis Macrocytosis Sodium Potassium Chloride Carbon Dioxide BUN Creatinine Est GFR ( Amer) Est GFR (Non-Af Amer) BUN/Creatinine Ratio Glucose POC Glucose Calculated Osmolality Lactic Acid Calcium Magnesium Total Bilirubin Direct Bilirubin Indirect Bilirubin AST ALT Alkaline Phosphatase Serum Total Protein Albumin Globulin Albumin/Globulin Ratio Vancomycin Trough Chlamy pneumoniae PCR Adenovirus (PCR) B. pertussis DNA (PCR) B.parapertussis DNA PCR Coronavirus OC43 (PCR) Coronavirus HKU1 (PCR) Coronavirus 229E (PCR) Coronavirus NL63 (PCR) Human Metapneumovir PCR Influenza A (H1) PCR Influ A (H1N1/) PCR Influenza A (H3) PCR Influenza A Untype (PCR) Influenza Type B (PCR) M.pneumoniae DNA (PCR) Parainfluenza 1 (PCR) Parainfluenza 2 (PCR) Parainfluenza 3 (PCR) Parainfluenza 4 (PCR) RSV (PCR) Entero/Rhino (PCR) - Attending Attestation I have seen and examined Ms. Trejo and agree with the assessment by Ms. Gonzalez. Patient has metastatic breast cancer with recent progression of disease. This is been associated with recurrent hospitalization for generalized debility as well as pneumonia. The patient is very fatigued and tired and is not physically able to pursue further therapy. After discussing this with the patient and family today, she does not desire to pursue further therapy as well. Hospice at [facility] has been arranged. I think this is the best option moving forward for this patient. This was discussed with the family and patient in detail. Palliative care has also met with the patient. I did explain that if the patient's condition does improve, we can revisit further treatment options although I feel this is unlikely. No formal follow-up will be scheduled per patient request. They are to contact our office for any concerns or questions. Further management was referred to the hospice care team. She is DNR-CC. Inpatient Charges Provider: Dr. Abilio Mullins Consult - Inpatient: [id number]
--- NOTE | 2018-03-24 17:43 | Internal Med Progress Note ---
Hospitalist Progress Note - Encounter Date of Encounter: 03/24/18 Time of Encounter: 10:00 - Subjective Interval History: Ms. Trejo is a 57 year old female with hx of stage IV left metastatic breast CA on oral chemo therapy, COPD, GERD, Fibromyalgia, HTN, CKD-3 who recently admitted hre for HCAP, now she got admitted here for AMS / Toxic encephalopathy and worsening pneumonia. She is currently on 3 lit O2 NC. She is alert, awake and O x 3, however looks lethargic and weak. No events overnight. Pt do not wanted to proceed with any more aggressive care, do not wanted to have labs drawn any more. - Exam Vitals: Temp Pulse Resp BP Pulse Ox 98.4 F 68 18 93/52 98 03/24/18 13:59 03/24/18 13:59 03/24/18 16:15 03/24/18 13:59 03/24/18 16:15 Exam: Gen: A, A, O x 3 Chest: Diminished BS b/l, mild wheezing, no crackles, no rales heart: S1S2+ RRR No murmurs Abd: Soft, Tenderness @ RUQ, mild distended, No guarding Ext: Trace edema.. Pulses +, No calf tenderness Neuro: No focal deficits - Assessment and Plan (1) HCAP (healthcare-associated pneumonia) Current Visit: No Status: Acute Assessment and Plan: Cont broad spec abx Zosyn and Vanc for now Mostly bacterial pneumonia on Duoneb and o2 (2) Acute respiratory failure with hypoxia Current Visit: No Status: Resolved Assessment and Plan: Due to PNA and deconditioning cont Duoneb and O2 no need of steroids (3) Breast cancer, left Current Visit: No Status: Chronic Assessment and Plan: Stage 4 breast Ca metastasis to liver CT abdomen/pelvis from January, revealed interval increased size of the presumed right hepatic metastatic lesion likely secondary to necrosis, interval decreased size of the left hepatic lesion, Unchanged bony metastatic lesions within the L4 and L5 segments Seems to be overall very poor prognosis, pt may not tolerate chemo therapy any more Consulted Heme Onc.. Pt and Family talked to Heme Onc Pt and family wanted to proceed with hospice care. Palliative care team working on it..Possible d/c to [facility] in AM with hospice care (4) Metastatic breast cancer Current Visit: No Status: Chronic Assessment and Plan: Pt has undergone multiple chemo and radiation. (5) Leukocytosis Current Visit: Yes Status: Acute Assessment and Plan: due to HCAP and reactive with Malignancy (6) COPD (chronic obstructive pulmonary disease) Current Visit: No Status: Acute Assessment and Plan: on NH nebs, and resp regimen for now. Will monitor closely. (7) CKD (chronic kidney disease) stage 3, GFR 30-59 ml/min Current Visit: Yes Status: Acute Assessment and Plan: stable Cr at baseline - Time Spent with Patient Total time spent is greater than 50% in coordination of care (as documented) at patient's floor/unit and/or counseling patient: Internal Medicine: Result - Labs CBC & Chem 7: 03/24/18 06:32 03/24/18 06:32 Labs: Short CBC 03/24/18 Range/Units 06:32 WBC 22.7 H (4.3-11.1) K/mcL Hgb 7.5 L D (11.5-15.4) g/dL Hct 25.2 L (35.3-44.9) % Plt Count 207 (140-400) K/mcL Neutrophils # 20.7 H (1.6-8.9) K/mcL BMP 03/24/18 06:32 Sodium 135 L Potassium 3.9 Chloride 102 Carbon Dioxide 19 L BUN 12 Creatinine 1.92 H Glucose 136 H Calcium 7.9 L Liver Function 03/24/18 Range/Units 06:32 Total Bilirubin 0.6 (0.3-1.0) mg/dL AST 18 (13-39) Units/L ALT 15 (7-52) Units/L Alkaline Phosphatase 226 H (34-104) Units/L Albumin 2.7 L (3.5-5.7) g/dL Consult Discharge Plan - Plan Referrals: Armando Root MD [Primary Care Provider] - (3) Breast cancer, left Qualifiers: Breast location: unspecified site of breast Estrogen receptor status: unspecified Patient sex: female Qualified Code(s): C50.912 - Malignant neoplasm of unspecified site of left female breast (5) Leukocytosis Qualifiers: Leukocytosis type: unspecified Qualified Code(s): D72.829 - Elevated white blood cell count, unspecified (6) COPD (chronic obstructive pulmonary disease) Qualifiers: Qualified Code(s): J44.9 - Chronic obstructive pulmonary disease, unspecified
[2018-03-25] MEDS: Piperacillin/Tazobactam 3.375 GM in 0.9 % Sodium Chloride Mini Bag 100 ML IVPB SCH ×2 (00:41→09:20)
[2018-03-25] MEDS: Ipratropium/Albuterol Neb 3 ML IH SCH ×2 (04:13→10:44)
[2018-03-25] MEDS: *HR* OxyCODONE/APAP 10/325 TABLET PO SCH ×2 (06:36→12:59)
[2018-03-25] MEDS: Levofloxacin 750 MG/150 ML 750 MG/150 ML BAG IVPB SCH (06:38)
[2018-03-25] MEDS: *HR* Heparin 5,000 UNIT/ML VIAL SQ SCH (06:38)
[2018-03-25] MEDS: Cholecalciferol (D-3) 1,000 UNIT TABLET PO SCH (09:18)
[2018-03-25] MEDS: FLUoxetine 20 MG CAPSULE PO SCH (09:18)
[2018-03-25] MEDS: Folic Acid 1 MG TABLET PO SCH (09:18)
[2018-03-25] MEDS: BuPROPion SR (12 HR) 100 MG TABLET PO SCH (09:18)
[2018-03-25] MEDS: ALPRAZolam 1 MG TABLET PO SCH (09:18)
[2018-03-25] MEDS: Aspirin Enteric Coated 81 MG Tablet PO SCH (09:19)
[2018-03-25] MEDS: Nystatin SUSP 5 ML UD.LIQ PO SCH ×3 (09:20→13:04)
--- NOTE | 2018-03-25 09:27 | Discharge Summary ---
<Bony Cifuentes - Last Filed: 03/25/18 11:49> - NOTES TO OUTPATIENT PROVIDER Notes to Outpatient Provider: Discharging to Hospice. Orders not resulted at time of discharge: Pending orders 03/20/18 20:40 Culture,Blood [BC] Stat 03/20/18 21:50 Culture,Sputum with Gram Stain [RM] Routine Date of Encounter: 03/25/18 Time of Encounter: 09:25 - Discharge Diagnosis (1) HCAP (healthcare-associated pneumonia) Priority: Primary Status: Acute (2) Acute respiratory failure with hypoxia Priority: Secondary Status: Resolved (3) CKD (chronic kidney disease) stage 3, GFR 30-59 ml/min Priority: Secondary Status: Acute (4) COPD (chronic obstructive pulmonary disease) Priority: Secondary Status: Acute Qualifiers: Qualified Code(s): J44.9 - Chronic obstructive pulmonary disease, unspecified (5) Leukocytosis Priority: Secondary Status: Acute Qualifiers: Leukocytosis type: unspecified Qualified Code(s): D72.829 - Elevated white blood cell count, unspecified (6) Metastatic breast cancer Priority: Secondary Status: Chronic Hospital course: Ms. Trejo is a 57 year old female with hx of stage IV left breast CA, with history of COPD and CKD. She was recently discharged following management for HCAP 03/10/18-03/17/18 was on Vancomycin and discharged on Zithromax. Readmitted to [facility] on 03/20/18 through 03/25/18 for worsening respiratory function and leukocytosis, toxic encephalopathy and fall at nursing facility. Patient started on Vancomycin, Zosyn, and Levaquin for HCAP. Patient with Acute respiratory failure requiring supplemental oxygen. Palliative care has been consulted given her worsening clinical picture and inability to tolerate rehabilitation. Goals of care discussion with patient and family has led to plans for discharge today to [facility] with hospice. Will plan to complete abx course for HCAP at nursing facility. Discharge discussed with: patient, family, social work - Time Spent with Patient Total time spent providing and/or coordinating discharge services: Greater than 30 minutes (45mins) - Discharge Medications Prescriptions: LORazepam [Ativan] 0.5 mg PO Q4HR PRN 7 Days #42 tablet PRN Reason: Anxiety OxyCODONE/APAP 10/325 [Percocet 10/325 MG] 1 each PO Q6HR 7 Days #28 tablet ALPRAZolam [Xanax 1 MG Tablet] 1 mg PO BID 7 Days #14 tablet Fentanyl [Duragesic] 50 mcg TD Q3D 7 Days #3 patch.td72 Levofloxacin 750 MG/150 ML [Levaquin Premix 750mg/150 mL] 750 mg IVPB Q48H 4 Days #2 bag Irxeaboqsywm-Nomv-Ttfbsnna,Iso [Zosyn 3.375 gm/50 ml Galaxy] 3.375 gm IV Q8H 5 Days #15 froz.piggy Home Medications: Prochlorperazine Maleate [Compazine] 10 mg PO Q6H PRN #30 tablet 08/30/15 [Rx] Loperamide [Imodium] 2 mg PO TID PRN 09/21/16 [History] Aspirin [Lo-Dose Aspirin EC] 81 mg PO DAILY 12/06/17 [History] FLUoxetine HCl [Prozac] 20 mg PO DAILY 12/06/17 [History] Lovastatin 40 mg PO DAILY 12/06/17 [History] Propranolol [Inderal] 20 mg PO DAILY #30 tablet 02/18/18 [Rx] FLUoxetine HCl [Fluoxetine HCl] 40 mg PO DAILY 03/10/18 [History] Loratadine [Claritin] 10 mg PO DAILY PRN 03/10/18 [History] Omeprazole [PriLOSEC] 20 mg PO BID 03/10/18 [History] Ipratropium/Albuterol Neb [Duoneb] 3 ml IH QID inhsol 03/17/18 [Rx] Potassium Chloride 20 meq PO BIDWM tab.er.prt 03/17/18 [Rx] Heparin 5,000 unit SQ Q12HR 03/20/18 [History] buPROPion HCl [Bupropion HCl Sr] 200 mg PO DAILY 03/21/18 [History] Folic Acid 1 mg PO DAILY #30 tablet 03/24/18 [Rx] ALPRAZolam [Xanax 1 MG Tablet] 1 mg PO BID 7 Days #14 tablet 03/25/18 [Rx] Acetaminophen [Tylenol] 650 mg PO Q6HR PRN tablet 03/25/18 [Rx] Cholecalciferol (D-3) [Vitamin D] 1,000 unit PO DAILY tablet 03/25/18 [Rx] Fentanyl [Duragesic] 50 mcg TD Q3D 7 Days #3 patch.td72 03/25/18 [Rx] LORazepam [Ativan] 0.5 mg PO Q4HR PRN 7 Days #42 tablet 03/25/18 [Rx] Levofloxacin 750 MG/150 ML [Levaquin Premix 750mg/150 mL] 750 mg IVPB Q48H 4 Days #2 bag 03/25/18 [Rx] OxyCODONE/APAP 10/325 [Percocet 10/325 MG] 1 each PO Q6HR 7 Days #28 tablet 03/25/18 [Rx] Swaroeymifcp-Euoh-Mlzltrun,Iso [Zosyn 3.375 gm/50 ml Galaxy] 3.375 gm IV Q8H 5 Days #15 froz.piggy 03/25/18 [Rx] Allergies/Adverse Reactions: Allergy/AdvReac Type Severity Reaction Status Date / Time arthritis medication Allergy Rash Uncoded 03/10/18 09:30 Date of admission: 03/20/18 21:49 Primary care physician: Armando Root MD Consults: 03/20/18 18:36 Consult to Electronics Technology Department Chair [CONS] Routine Reason for SW Consult: ECF placement, family wants to discuss hospice 03/20/18 21:49 Consult to Nurse Navigator [CONS] Routine Comment: 03/21/18 15:15 Consult to Palliative Care [CONS] Routine Comment: Consulting Provider: Palliative Care Gracie Reason for Consult: home going needs Call Completed: Yes 03/24/18 08:21 Consult to Nutrition [CONS] Stat Comment: Consulting Provider: NUTRITION Reason for Dietary Consult: MST Score Discharging clinician: Jarrod Barrera Anticipated date of discharge: 03/25/18 - Constitutional Vitals: Temp Pulse Resp BP Pulse Ox 97.7 F 74 16 108/71 100 03/25/18 07:05 03/25/18 07:05 03/25/18 07:05 03/25/18 07:05 03/25/18 07:05 General appearance: Present: A&O X 3, no acute distress Exam: Gen: Drowsy, but easily arousable. Will answer simple questions HEENT: mucus membranes dry Chest: Diminished BS b/l, no wheezing, no crackles, no rales heart: S1S2+ RRR No murmurs Abd: Soft, Tenderness @ RUQ, No guarding Ext: Trace edema bilateraly. Pulses +, No calf tenderness Neuro: No focal deficits Skin: dry, intact, warm - Patient Status Disposition: Hospice - Medical Facility Condition: Fair Functional capacity at discharge: bed bound Overall status at discharge: patient is not back to baseline - Discharge Instructions Follow Up With: Armando Root MD [Primary Care Provider] - Forms: ED Satisfaction Letter Additional Instructions: Further instructions per Hospice team. - Diet and Activity Activity: wear oxygen at all times Diet: other (soft diet chopped meat, with vanilla protein shake with meals.) <OlivaradhapilarYonatan Radharoseline - Last Filed: 03/25/18 12:46> Orders not resulted at time of discharge: Pending orders 03/20/18 20:40 Culture,Blood [BC] Stat 03/20/18 21:50 Culture,Sputum with Gram Stain [RM] Routine - Discharge Diagnosis (1) Breast cancer, left Status: Chronic Qualifiers: Breast location: unspecified site of breast Estrogen receptor status: unspecified Patient sex: female Qualified Code(s): C50.912 - Malignant neoplasm of unspecified site of left female breast (2) Metastatic breast cancer Status: Chronic (3) HCAP (healthcare-associated pneumonia) Status: Acute (4) Acute respiratory failure with hypoxia Status: Resolved (5) Leukocytosis Status: Acute Qualifiers: Leukocytosis type: unspecified Qualified Code(s): D72.829 - Elevated white blood cell count, unspecified (6) COPD (chronic obstructive pulmonary disease) Status: Acute Qualifiers: Qualified Code(s): J44.9 - Chronic obstructive pulmonary disease, unspecified (7) CKD (chronic kidney disease) stage 3, GFR 30-59 ml/min Status: Acute Hospital course: Ms. Trejo is a 57 year old female - Time Spent with Patient Total time spent providing and/or coordinating discharge services: Date of admission: 03/20/18 21:49 Primary care physician: Armando Root MD Consults: 03/20/18 18:36 Consult to Electronics Technology Department Chair [CONS] Routine Reason for SW Consult: ECF placement, family wants to discuss hospice 03/20/18 21:49 Consult to Nurse Navigator [CONS] Routine Comment: 03/21/18 15:15 Consult to Palliative Care [CONS] Routine Comment: Consulting Provider: Palliative Care Gracie Reason for Consult: home going needs Call Completed: Yes 03/24/18 08:21 Consult to Nutrition [CONS] Stat Comment: Consulting Provider: NUTRITION Reason for Dietary Consult: MST Score - Constitutional Vitals: Temp Pulse Resp BP Pulse Ox 98.1 F 69 20 91/59 98 03/25/18 09:59 03/25/18 09:59 03/25/18 09:59 03/25/18 09:59 03/25/18 09:59 - Attending Attestation Patient's family has requested oral antibiotics instead of IV antibiotics on discharge. We did discuss that given the severity of her pneumonia, IV is ideal but due to patient being hospice and for comfort, they prefer not to re insert IV access. Addendum entered and electronically signed by Jarrod Barrera MD 03/25/18 17:17: I examined this patient and my medical decision-making was reviewed with the Resident Physician. I agree with the documented findings, disposition and treatment plan as described except to the extent set forth below.
[2018-03-25 10:00] VITALS: BP 91/59
--- NOTE | 2018-03-25 11:24 | Palliative Progress Note ---
Addendum entered and electronically signed by Shalini Gauthier 03/25/18 10:33: Referral made to [facility], spoke with Cari in admissions. Requested fax packet to [facility]; [phone]. [facility] Case management faxing packet. Patient to be admitted to [facility] at [facility]. Original Note: Date of Encounter: 03/25/18 Time of Encounter: 09:00 - Assessment and plan (1) Leukocytosis Current Visit: Yes Status: Acute Qualifiers: Leukocytosis type: unspecified Qualified Code(s): D72.829 - Elevated white blood cell count, unspecified (2) Anxiety Current Visit: No Status: Chronic Assessment and plan: Patient reports anxiety stable. Prescription written for Xanax and Ativan. (3) Breast cancer, left Current Visit: No Status: Chronic Assessment and plan: Oncology consult performed; appreciate recommendations. Qualifiers: Breast location: unspecified site of breast Estrogen receptor status: unspecified Patient sex: female Qualified Code(s): C50.912 - Malignant neoplasm of unspecified site of left female breast (4) Metastatic breast cancer Current Visit: No Status: Chronic (5) Advanced directives, counseling/discussion Current Visit: No Status: Acute Assessment and plan: Patient to be discharged this morning to [facility] with [facility]. Prescriptions written. Dr. Cifuentes notified patient is ready for discharge. (6) Cancer related pain Current Visit: No Status: Acute Assessment and plan: Patient denies pain during assessment. Prescription written for Fentanyl and Percocet. (7) Constipation by delayed colonic transit Current Visit: Yes Status: Acute Assessment and plan: Patient has had Bowel movement in last 24 hours; continue add bowel regimen. - Time Spent With Patient Total time spent is greater than 50% in coordination of care (as documented) at patient's floor/unit and/or counseling patient: less than 15 minutes - Subjective Interval history: Patient sitting up in bed upon arrival for assessment. Patient is alert and oriented times 3. Patient's daughter (RADHA) present at bedside. Plans to discharge to [facility] today with [facility]. Family and patient agreeable. Patient denies pain, shortness of breath, nausea, anxiety, and vomiting. - Constitutional Vitals: Abnormal lab results WBC 22.7 K/mcL (4.3-11.1) H 03/24/18 06:32 RBC 2.79 M/mcL (3.82-4.97) L 03/24/18 06:32 Hgb 7.5 g/dL (11.5-15.4) L D 03/24/18 06:32 Hct 25.2 % (35.3-44.9) L 03/24/18 06:32 MCH 26.9 pg (28.0-33.3) L 03/24/18 06:32 MCHC 29.8 g/dL (31.6-35.5) L 03/24/18 06:32 RDW 17.5 % (11.5-14.5) H 03/24/18 06:32 Neutrophils # 20.7 K/mcL (1.6-8.9) H 03/24/18 06:32 Lymphocytes # 0.4 K/mcL (0.6-4.6) L 03/24/18 06:32 Nucleated RBCs/100 WBC 0.1 /100 WBC (0) H 03/24/18 06:32 Toxic Granulation Present (Not Present) A 03/22/18 15:08 Large Platelets Present (Not Present) A 03/23/18 03:41 Polychromasia 1+ (Not Present) A 03/23/18 03:41 Anisocytosis 1+ (Not Present) A 03/23/18 03:41 Macrocytosis Present (Not Present) A 03/21/18 03:51 Sodium 135 mEq/L (136-145) L 03/24/18 06:32 Carbon Dioxide 19 mEq/L (23-29) L 03/24/18 06:32 Creatinine 1.92 mg/dL (0.60-1.20) H 03/24/18 06:32 Est GFR ( Amer) 32 (> 60) L 03/24/18 06:32 Est GFR (Non-Af Amer) 27 (> 60) L 03/24/18 06:32 Glucose 136 mg/dL (70-105) H 03/24/18 06:32 Calcium 7.9 mg/dL (8.6-10.3) L 03/24/18 06:32 Direct Bilirubin 0.3 mg/dL (0.0-0.2) H 03/20/18 14:51 Alkaline Phosphatase 226 Units/L (34-104) H 03/24/18 06:32 Serum Total Protein 5.4 g/dL (6.4-8.9) L 03/24/18 06:32 Albumin 2.7 g/dL (3.5-5.7) L 03/24/18 06:32 Albumin/Globulin Ratio 1.0 (1.1-2.2) L 03/24/18 06:32 Vancomycin Trough 21 mcg/mL (5-10) H 03/24/18 06:32 General appearance: Present: cooperative, no acute distress - Head Head exam: Present: normal inspection - Eye Eye exam: Present: normal appearance Pupils: Present: normal accommodation - ENT ENT exam: Present: mucous membranes dry, normal external ear exam - Neck Neck exam: Present: full ROM, normal inspection - Respiratory Respiratory exam: Present: rhonchi. Absent: accessory muscle use, respiratory distress - Cardiovascular Cardiovascular exam: Present: +S1, +S2 - GI/Abdominal GI/Abdominal exam: Present: normal bowel sounds, soft. Absent: tenderness - Rectal Rectal exam: Present: deferred - Extremities Exam Extremities exam: Present: pedal edema - Back Exam Back exam: Present: normal inspection - Neurological Exam Neurological exam: Present: alert, oriented X3, strengths equal and symetr throughout. Absent: altered - Psychiatric Psychiatric exam: Present: normal affect, normal mood - Skin Skin exam: Present: pallor, warm. Absent: intact Palliative Quality Palliative Quality: Screen for Code Status: Yes, Screen for Goals of Care: Yes, Screen for Pain: Yes, If Pain Regimen Started, Initiate Bowel Regimen: Yes, Screen for Nausea/Vomitting: Yes Code Status: 03/20/18 21:49 Resuscitation Status: Active [RES] Routine Comment: Resuscitation Status: Full Code 03/21/18 16:04 DNR [Resuscitation Status: Active] [RES] Routine Comment: State form completed. Resuscitation Status: DNR-Comfort Care - Labs CBC & Chem 7: 03/24/18 06:32 03/24/18 06:32 Consult Discharge Plan - Plan Referrals: Armando Root MD [Primary Care Provider] - Prescriptions: LORazepam [Ativan] 0.5 mg PO Q4HR PRN 7 Days #42 tablet PRN Reason: Anxiety OxyCODONE/APAP 10/325 [Percocet 10/325 MG] 1 each PO Q6HR 7 Days #28 tablet ALPRAZolam [Xanax 1 MG Tablet] 1 mg PO BID 7 Days #14 tablet Fentanyl [Duragesic] 50 mcg TD Q3D 7 Days #3 patch.td72
--- NOTE | 2018-03-25 11:27 | Physician Discharge Referral ---
ExtendedCare Referral Info Transfer To: [facility] Provider in Charge after Transfer: [employer]icycle [employer] Institutional Level of Care: Skilled - Diagnosis (1) CKD (chronic kidney disease) stage 3, GFR 30-59 ml/min Priority: Secondary Status: Acute (2) COPD (chronic obstructive pulmonary disease) Priority: Secondary Status: Acute (3) HCAP (healthcare-associated pneumonia) Priority: Secondary Status: Acute (4) Leukocytosis Priority: Secondary Status: Acute (5) Metastatic breast cancer Priority: Secondary Status: Chronic Prognosis: Poor Aware of Diagnosis: Patient, Family Aware of Prognosis: Patient, Family - Transfer Medications Prescriptions: LORazepam [Ativan] 0.5 mg PO Q4HR PRN 7 Days #42 tablet PRN Reason: Anxiety OxyCODONE/APAP 10/325 [Percocet 10/325 MG] 1 each PO Q6HR 7 Days #28 tablet ALPRAZolam [Xanax 1 MG Tablet] 1 mg PO BID 7 Days #14 tablet Fentanyl [Duragesic] 50 mcg TD Q3D 7 Days #3 patch.td72 Levofloxacin 750 MG/150 ML [Levaquin Premix 750mg/150 mL] 750 mg IVPB Q48H 4 Days #2 bag Wfwediljwezp-Oxwb-Kaqvbdqr,Iso [Zosyn 3.375 gm/50 ml Galaxy] 3.375 gm IV Q8H 5 Days #15 froz.piggy Home Medications: Prochlorperazine Maleate [Compazine] 10 mg PO Q6H PRN #30 tablet 08/30/15 [Rx] Loperamide [Imodium] 2 mg PO TID PRN 09/21/16 [History] Aspirin [Lo-Dose Aspirin EC] 81 mg PO DAILY 12/06/17 [History] FLUoxetine HCl [Prozac] 20 mg PO DAILY 12/06/17 [History] Lovastatin 40 mg PO DAILY 12/06/17 [History] Propranolol [Inderal] 20 mg PO DAILY #30 tablet 02/18/18 [Rx] FLUoxetine HCl [Fluoxetine HCl] 40 mg PO DAILY 03/10/18 [History] Loratadine [Claritin] 10 mg PO DAILY PRN 03/10/18 [History] Omeprazole [PriLOSEC] 20 mg PO BID 03/10/18 [History] Ipratropium/Albuterol Neb [Duoneb] 3 ml IH QID inhsol 03/17/18 [Rx] Potassium Chloride 20 meq PO BIDWM tab.er.prt 03/17/18 [Rx] Heparin 5,000 unit SQ Q12HR 03/20/18 [History] buPROPion HCl [Bupropion HCl Sr] 200 mg PO DAILY 03/21/18 [History] Folic Acid 1 mg PO DAILY #30 tablet 03/24/18 [Rx] ALPRAZolam [Xanax 1 MG Tablet] 1 mg PO BID 7 Days #14 tablet 03/25/18 [Rx] Acetaminophen [Tylenol] 650 mg PO Q6HR PRN tablet 03/25/18 [Rx] Cholecalciferol (D-3) [Vitamin D] 1,000 unit PO DAILY tablet 03/25/18 [Rx] Fentanyl [Duragesic] 50 mcg TD Q3D 7 Days #3 patch.td72 03/25/18 [Rx] LORazepam [Ativan] 0.5 mg PO Q4HR PRN 7 Days #42 tablet 03/25/18 [Rx] Levofloxacin 750 MG/150 ML [Levaquin Premix 750mg/150 mL] 750 mg IVPB Q48H 4 Days #2 bag 03/25/18 [Rx] OxyCODONE/APAP 10/325 [Percocet 10/325 MG] 1 each PO Q6HR 7 Days #28 tablet 03/25/18 [Rx] Omicqxnopnpj-Zcer-Ypnoiezw,Iso [Zosyn 3.375 gm/50 ml Galaxy] 3.375 gm IV Q8H 5 Days #15 froz.piggy 03/25/18 [Rx] Allergies/Adverse Reactions: Allergy/AdvReac Type Severity Reaction Status Date / Time arthritis medication Allergy Rash Uncoded 03/10/18 09:30 - Respiratory Orders Oxygen / L per min (3-4lmp) Smoking Cessation: Smoking cessation has been advised. For more information, call the [place] Tobacco Quit Line at 2-500-FHHF-NOW. - Advance Directives Living Will: No Power of Air Table Operator for Health Care: No (family working on paperwork) Code Status: DNR-Comfort Care - Mobility Orders Bedrest - Rehabiliation Orders Rehab Potential: Poor - Treatments List/Other: Will complete abx treatment for HCAP with levaquin and zosyn. - Diet Orders Mechanical Soft (with supplement shakes with meals.) CERTIFICATION: I certify that the transfer of the above named patient to an Extended Care Facility is necessary for the continuing treatment of the diagnosis listed. The above information is true and accurate reflection of patient's current condition. Confidential - Redisclosure prohibited without a patient's written consent.
--- NOTE | 2018-03-25 15:38 | Electrocardiograph Report ---
[place] [id number] Test Date: 2018-03-20 Pat Name: Milla Trejo Department: [id number] Room: 3A46 Gender: F Prototype Model Maker: : [id number] Requested By: Smith Bennett Order Number: [id number] Reading MD: Umang Ramirez Measurements Intervals [place] Rate: 65 P: 151 MO: 138 QRS: 157 QRSD: 94 T: 118 QT: 489 QTc: 509 Interpretive Statements Sinus or ectopic atrial rhythm Limb lead reversal Recommend repeat ECG Electronically Signed On 03-25-2018 15:36:46 EDT by Umang Ramirez
== END 2018-03-25 13:38 | disposition hospice, inpatient (51) | DRG 193 ==
LOC: EMEROOARM 14:05 → 3ANU 14:05
PROVIDERS: ADMIT Internal Medicine; ATTEND Internal Medicine